=== PATIENT | female | born 1975 | race Caucasian/White ===

== ENCOUNTER 2016-10-03 19:20 | Outpatient (CLI) | payer MEDICARE, MEDICAID | END 2016-10-03 19:21 | disposition home or self-care (01) | DX: Z00.00 Encounter for general adult medical examination without abnormal findings (principal); Z79.899 Other long term (current) drug therapy; E21.3 Hyperparathyroidism, unspecified ==

== ENCOUNTER 2016-10-20 09:52 | Outpatient (CLI) | payer MEDICARE, MEDICAID ==
--- NOTE | 2016-10-23 15:44 | Mammography Report ---
DIGITAL SCREENING MAMMOGRAM: 10/20/2016 CLINICAL INDICATION: A 41-year-old with family history of breast cancer for screening. COMPARISON: 11/2010 TECHNIQUE: Routine CC and MLO projections were obtained of the breasts as well as bilateral laterall y exaggerated craniocaudal views. FINDINGS: Scattered fibroglandular tissue is present within the breasts. There are no dominant odalis s, suspicious microcalcifications, or secondary signs of malignancy. In comparison to the previous st udies, there are no significant changes. ASSESSMENT: NO MAMMOGRAPHIC EVIDENCE OF MALIGNANCY. NO SIGNIFICANT INTERVAL CHANGES. RECOMMENDATION: Screening mammography is recommended annually. BIRADS category 1 - negative. STANDARD QUALIFYING STATEMENTS 1. This examination was reviewed with the aid of Computed-Aided Detection (CAD). 2. A negative or benign imaging report should not delay biopsy if clinically suspicious findings are present. Consider surgical consultation if warranted. More than 5% of cancers are not identified by i maging. 3. Dense breasts may obscure an underlying neoplasm. JOB #: [id number] EXT JOB #:[id number]
== END 2016-10-20 09:53 | disposition home or self-care (01) ==
LOC: DI.N 09:52
PROVIDERS: ATTEND Nurse Practitioner
DX: Z12.31 Encounter for screening mammogram for malignant neoplasm of breast (principal); Z80.3 Family history of malignant neoplasm of breast
CPT/HCPCS: 77067

== ENCOUNTER 2016-10-30 10:59 | Outpatient (CLI) | payer MEDICARE, MEDICAID ==
--- NOTE | 2016-10-30 18:16 | XRAY Report ---
CHEST, PA AND LATERAL: 10/30/2016 CLINICAL HISTORY: Bronchitis. COMPARISON: 08/24/2014 FINDINGS: Normal cardiac size is seen. Mediastinum is not widened. Pulmonary parenchyma shows no s ignificant abnormality. No significant infiltrate is seen. No change is noted. IMPRESSION: NORMAL EXAMINATION WITHOUT CHANGE SEEN COMPARED TO 08/24/2014. 18:9:34 JOB #: [id number] EXT JOB #:[id number]
== END 2016-10-30 11:00 | disposition home or self-care (01) ==
LOC: DI.N 10:59
PROVIDERS: ATTEND Physician Assistant
DX: J40 Bronchitis, not specified as acute or chronic (principal)
CPT/HCPCS: 71020

== ENCOUNTER 2017-02-27 12:13 | Emergency (ER) | payer OTHER, MEDICARE, MEDICAID ==
--- NOTE | 2017-02-27 13:48 | ED Physician Documentation ---
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 Timing - onset: Yesterday Timing - duration: Days (1) Timing - details: Gradual onset Pain level max: 5 Pain level now: 5 Quality: Pain, Spasm, Similar to prior episodes Improved by: Rest Worsened by: Moving, Palpating Associated symptoms: No: Fever, Weakness, Numbness, Incontinent of urine, Unable to urinate, Hematuria, Incontinent of stool Similar symptoms before: Diagnosis (back pain) Recently seen: Not recently seen - Additional information Additional information: Patient states that she has a "cage" in her lumbar spine, implanted about a year ago and is concerned that this may have been damaged in the injury. Review of Systems Constitutional: denies: Fever, Chills Respiratory: denies: Cough GI: denies: Abdominal Pain, Nausea, Vomiting, Diarrhea : denies: Dysuria, Frequency, Hesitancy, Unable to Void, Incontinent, Now EGA Skin: denies: Rash Musculoskeletal: denies: Neck pain Neurologic: denies: Focal weakness, Numbness PD PAST MEDICAL HISTORY - Past Medical History Past Medical History: Yes Cardiovascular: None Respiratory: COPD Neuro: None Endocrine/Autoimmune: None GI: None : None HEENT: None Psych: Bipolar disorder, Panic attacks Musculoskeletal: Osteoarthritis, Chronic back pain Derm: None Other Past Medical History: CMTR - Past Surgical History Past Surgical History: Yes General: Other 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, Other - Present Medications Home Medications: Ambulatory Orders Medication Instructions Recorded Confirmed ARIPiprazole [Abilify] 5 mg PO DAILY 05/13/13 02/27/17 buPROPion [Wellbutrin Xl] 300 mg PO DAILY 05/13/13 02/27/17 Pregabalin [Lyrica] 150 mg PO BID 08/28/13 02/27/17 Cyclobenzaprine [Flexeril] 10 mg PO TID PRN #20 tablet 02/27/17 Meloxicam [Mobic] 7.5 mg PO BID PRN #20 tablet 02/27/17 Naproxen [Naprosyn] 250 mg PO BID 02/27/17 02/27/17 - Allergies Allergies/Adverse Reactions: Allergies Allergy/AdvReac Type Severity Reaction Status Date / Time acetaminophen [From Percocet] Allergy Unknown Verified 02/27/17 12:20 oxycodone Allergy Unknown Verified 02/27/17 12:20 oxycodone HCl * Allergy Unknown Verified 02/27/17 12:20 [From Percocet] codeine [Codeine] AdvReac Severe Rash Verified 02/27/17 12:20 - Social History Does the pt smoke?: Yes Smoking Status: Current every day smoker Does the pt drink ETOH?: Yes Does the pt have substance abuse?: Yes - Immunizations Immunizations are current?: Yes PD ED PE NORMAL - Vitals Vital signs reviewed: Yes - General General: Alert and oriented X 3, No acute distress - HEENT HEENT: Moist mucous membranes - Back Back: Other (Mild midline tenderness L4-L5 without step-off or deformity. Paraspinal muscle spasm low lumbar bilaterally.) - Derm Derm: Warm and dry - Extremities Extremities: Other (normal bilateral lower extremity patellar and ankle jerk reflexes. Normal great toe extension bilaterally) - Neuro Neuro: Alert and oriented X 3, No motor deficit, No sensory deficit - Psych Psych: Normal mood, Normal affect Results - Vitals Vitals: Vital Signs - 24 hr 02/27/17 02/27/17 12:17 14:03 Temperature 36.5 C 36.4 C L Heart Rate 84 83 Respiratory 16 18 Rate Blood Pressure 126/88 H 139/91 H O2 Saturation 100 97 Oxygen O2 Source Room air - Rads (name of study) L-spine x-ray Radiology: Prelim report reviewed, EMP read contemporaneously, See rad report ( No acute findings) PD MEDICAL DECISION MAKING - ED course Complexity details: reviewed results, re-evaluated patient, considered differential (no cauda equina, no spinal epidural abscess, no fracture, no aortic dissection or evidence of aneursym rupture), d/w patient ED course: Patient is a 41-year-old female who is status post a low back injury one day ago at work. History of a spinal fusion, L5-S1 within the past year. X-ray reveals no movement of the hardware. No acute bony findings. Will place on muscle relaxants and NSAIDs for home and follow-up with her doctor. Patient counseled regarding signs and symptoms for which I believe and urgent re- evaluation would be necessary. Patient with good understanding of and agreement to plan and is comfortable going home at this time This document was made in part using voice recognition software. While efforts are made to proofread this document, sound alike and grammatical errors may occur. Departure - Departure Disposition: 01 Home, Self Care Clinical Impression: Low back strain Qualifiers: Encounter type: initial encounter Qualified Code(s): S39.012A - Strain of muscle, fascia and tendon of lower back, initial encounter Condition: Good Instructions: ED Sprain Strain Lumbar Follow-Up: Pipo Aiken PA-C [Primary Care Provider] - Within 1 week Prescriptions: Cyclobenzaprine [Flexeril] 10 mg PO TID PRN #20 tablet PRN Reason: Spasms Meloxicam [Mobic] 7.5 mg PO BID PRN #20 tablet PRN Reason: pain Comments: Return if you worsen. This should improve over the next few days. Do not drive or operate heavy machinery while taking the Flexeril. Your blood pressure was elevated today on check in to the emergency department. This does not mean that you have hypertension, it is a common phenomenon to check into the emergency department and have elevated blood pressure. I recommend that you see your primary care physician within the week to have it rechecked when you're feeling better. Forms: Activity restrictions Discharge Date/Time: 02/27/17 14:25
[2017-02-27 14:04] VITALS: BP 139/91
--- NOTE | 2017-02-27 14:18 | XRAY Preliminary Report ---
Exam: XR Lumbar Spine 2 View IMPRESSION: No acute findings are seen. See above. [facility] SITE ID: [id number]
--- NOTE | 2017-02-27 14:20 | XRAY Report ---
EXAM: LUMBOSACRAL SPINE RADIOGRAPHY EXAM DATE: 02/27/2017 02:05 PM. CLINICAL HISTORY: Low back pain s/p pulling pt, has a cage in place. COMPARISONS: None. TECHNIQUE: 3 views. FINDINGS: Alignment: Normal. No spondylolisthesis or scoliosis. Bones: No fractures or bone lesions. Disks: L5-S1 fusion with posterior rods, pedicle screws and interbody disk prosthesis. Alignment appe ars within normal limits. Mild L4-L5 disk height loss. Facets: Mild L4-L5 facet arthropathy Sacroiliac Joints: Unremarkable. Soft Tissues: Normal. The visualized bowel gas pattern is normal. IMPRESSION: No acute findings are seen. See above. [facility] Referring Provider Line: [phone] SITE ID: [id number]
== END 2017-02-27 14:25 | disposition home or self-care (01) ==
LOC: ED 12:13
DX: S39.012A Strain of muscle, fascia and tendon of lower back, initial encounter (principal); X50.1XXA Overexertion from prolonged static or awkward postures, initial encounter; Y93.89 Activity, other specified; Y99.0 Civilian activity done for income or pay; F17.200 Nicotine dependence, unspecified, uncomplicated; R03.0 Elevated blood-pressure reading, without diagnosis of hypertension
CPT/HCPCS: 1040M; 72100; 99283

== ENCOUNTER 2018-01-08 08:00 | Outpatient (CLI) | payer MEDICARE, MEDICAID ==
[2018-01-08 12:46] LABS: BASOPHILS # (AUTO) 0.1 10^3/uL (0.0-0.1); BASOPHILS % (AUTO) 0.7 %; EOSINOPHILS # (AUTO) 0.2 10^3/uL (0.0-0.7); HGB - HEMOGLOBIN 14.2 g/dL (12.0-16.0); LYMPHOCYTES # (AUTO) 2.8 10^3/uL (1.5-3.5); LYMPHOCYTES % (AUTO) 33.6 %; MEAN CORPUSCULAR HEMOGLOBIN 28.3 pg (27.0-31.0); MEAN CORPUSCULAR HGB CONC 32.7 g/dL (32.0-36.0); MEAN CORPUSCULAR VOLUME 86.6 fL (81.0-99.0); MEAN PLATELET VOLUME 9.5 fL (7.9-10.8); MONOCYTES # (AUTO) 0.4 10^3/uL (0.0-1.0); MONOCYTES % (AUTO) 4.6 %; NEUTROPHILS # (AUTO) 4.9 10^3/uL (1.5-6.6); NEUTROPHILS % (AUTO) 59.1 %; PLT - PLATELET COUNT 223 10^3/uL (130-450); RED BLOOD COUNT 5.01 10^6/uL (4.20-5.40); RED CELL DISTRIBUTION WIDTH 15.5 % (12.0-15.0); WHITE BLOOD COUNT 8.2 x10^3/uL (4.8-10.8)
[2018-01-08 13:17] LABS: ALBUMIN 3.7 g/dL (3.2-5.5); ALBUMIN/GLOBULIN RATIO 1.1 (1.0-2.2); ALKALINE PHOSPHATASE 52 IU/L (42-121); ALT ALANINE AMINOTRANSFERASE 19 IU/L (10-60); AST ASPARTATE AMINOTRANSFERASE 21 IU/L (10-42); BILIRUBIN,TOTAL 0.6 mg/dL (0.2-1.0); BUN - BLOOD UREA NITROGEN 14 mg/dL (6-20); CALCIUM 9.4 mg/dL (8.5-10.3); CARBON DIOXIDE - CO2 24 mmol/L (21-32); CHLORIDE 105 mmol/L (101-111); CHOL/HDL RATIO 6.8 (<4.4); CHOLESTEROL 244 mg/dL; GFR - MDRD 61 (>89); GLUCOSE 107 mg/dL (70-100); HDL CHOLESTEROL 36 mg/dL; LDL CHOLESTEROL,CALCULATED 163 mg/dL; LDL/HDL RATIO 4.5 (<4.4); SODIUM 137 mmol/L (135-145); TOTAL PROTEIN 7.1 g/dL (6.7-8.2); VLDL CHOLESTEROL 45 mg/dL
== END 2018-01-08 08:01 | disposition home or self-care (01) ==
LOC: LAB.N 08:00
PROVIDERS: ATTEND Family Medicine
DX: E55.9 Vitamin D deficiency, unspecified (principal); Z51.81 Encounter for therapeutic drug level monitoring; F31.9 Bipolar disorder, unspecified
CPT/HCPCS: 36415; 80053; 80061; 82306; 83721; 85025

== ENCOUNTER 2018-01-17 09:17 | Outpatient (CLI) | payer MEDICARE, MEDICAID ==
--- NOTE | 2018-01-17 11:33 | XRAY Report ---
Procedure Date: 01/17/2018 Accession Number: [id number] / [id number] Procedure: XRN - Knee 3 View LT CPT Code: FULL RESULT: EXAM: Knee 3 View LT DATE: 01/17/2018 9:53 AM CLINICAL HISTORY: KNEE PAIN COMPARISON: None. TECHNIQUE: 3 views. FINDINGS: Bones: There is no fracture or dislocation. Degenerative changes with marginal osteophytosis, tricompartmental. Joints: Bilateral femoral tibial compartment joint space narrowing, more pronounced in the medial compartment where there is moderate. Asymmetric joint space loss/tracking of the patella, lateral tilt. No joint effusion. Soft Tissues: Normal. No soft tissue swelling. IMPRESSION: Degenerative changes involving the lateral patella and medial femoral tibial compartment as described. [facility]
== END 2018-01-17 09:18 | disposition home or self-care (01) ==
LOC: DI.N 09:17
PROVIDERS: ATTEND Family Medicine
DX: M25.562 Pain in left knee (principal); M25.762 Osteophyte, left knee

== ENCOUNTER 2018-02-12 07:50 | Outpatient (CLI) | payer MEDICARE, MEDICAID ==
[2018-02-12 13:09] LABS: HB2 TOTAL 15.5 g/dL; HEMOGLOBIN A1C 0.61 g/dL; HEMOGLOBIN A1C % 5.8 % (4.6-6.2)
== END 2018-02-12 07:51 | disposition home or self-care (01) ==
LOC: LAB.N 07:50
PROVIDERS: ATTEND Family Medicine
DX: R73.01 Impaired fasting glucose (principal)
CPT/HCPCS: 36415; 83036

== ENCOUNTER 2018-03-18 10:29 | Outpatient (CLI) | payer MEDICARE, MEDICAID ==
--- NOTE | 2018-03-18 15:36 | XRAY Report ---
Reason: KANDICE-TOOTH DISEASE Procedure Date: 03/18/2018 Accession Number: [id number] / [id number] Procedure: XRN - Foot 3 View LT CPT Code: FULL RESULT: EXAM: LEFT FOOT RADIOGRAPHY EXAM DATE: 03/18/2018 10:55 AM. CLINICAL HISTORY: Kandice-tooth disease. COMPARISON: KNEE 3 VIEW LT 01/17/2018 9:47 AM FOOT 3 VIEW LT 01/27/2016 3:02 PM. TECHNIQUE: 3 views. FINDINGS: The patient is status post mid foot arthrodesis with chronic unchanged fracture of the calcaneal screw. Remaining hardware including plate and screw construct is unchanged in configuration. No acute fracture is identified. Osseous fusion and degenerative changes in the mid foot previously seen in 2016 have not significantly changed. IMPRESSION: Stable exam. [facility]
== END 2018-03-18 10:30 | disposition home or self-care (01) ==
LOC: DI.N 10:29
PROVIDERS: ATTEND Physician Assistant Medical
DX: G60.0 Hereditary motor and sensory neuropathy (principal)

== ENCOUNTER 2018-07-02 08:26 | Outpatient (CLI) | payer MEDICARE, MEDICAID ==
--- NOTE | 2018-07-02 15:47 | XRAY Report ---
Reason: PRODUCTIVE COUGH, CIGARETTE SMOKER Procedure Date: 07/02/2018 Accession Number: [id number] / [id number] Procedure: XRN - Chest 2 View X-Ray CPT Code: 02173 FULL RESULT: EXAM: CHEST RADIOGRAPHY EXAM DATE: 07/02/2018 08:49 AM. CLINICAL HISTORY: PRODUCTIVE COUGH, CIGARETTE SMOKER. COMPARISON: CHEST 2 VIEW PA/LAT 10/30/2016 11:28 AM. TECHNIQUE: 2 views. FINDINGS: Lungs/Pleura: No focal opacities evident. No pleural effusion. No pneumothorax. Normal volumes. Mediastinum: Heart and mediastinal contours are unremarkable. Other: None. IMPRESSION: Normal 2-view chest radiography. [facility]
== END 2018-07-02 08:27 | disposition home or self-care (01) ==
LOC: DI.N 08:26
PROVIDERS: ATTEND Physician Assistant Medical
DX: R05 Cough (principal); F17.210 Nicotine dependence, cigarettes, uncomplicated
CPT/HCPCS: 71046

== ENCOUNTER 2018-08-26 11:15 | Outpatient (CLI) | payer MEDICARE, MEDICAID | END 2018-08-26 11:16 | disposition home or self-care (01) | LOC: SC 11:15 | PROVIDERS: ATTEND Internal Medicine Pulmonary Disease | DX: R06.81 Apnea, not elsewhere classified (principal); G47.10 Hypersomnia, unspecified; R41.89 Other symptoms and signs involving cognitive functions and awareness; G47.8 Other sleep disorders; R06.83 Snoring | CPT/HCPCS: 99203; G0463; 99212 ==

== ENCOUNTER 2018-08-28 19:25 | Outpatient (CLI) | payer MEDICARE, MEDICAID | END 2018-08-28 19:26 | disposition home or self-care (01) | LOC: SC 19:25 | PROVIDERS: ATTEND Internal Medicine Pulmonary Disease | DX: G47.10 Hypersomnia, unspecified (principal); R06.81 Apnea, not elsewhere classified | CPT/HCPCS: 95810 ==

== ENCOUNTER 2018-09-24 08:00 | Outpatient (CLI) | payer MEDICARE, MEDICAID ==
[2018-09-24 13:06] LABS: ALBUMIN 3.6 g/dL (3.2-5.5); ALBUMIN/GLOBULIN RATIO 0.9 (1.0-2.2); ALKALINE PHOSPHATASE 67 IU/L (42-121); ALT ALANINE AMINOTRANSFERASE 18 IU/L (10-60); AST ASPARTATE AMINOTRANSFERASE 21 IU/L (10-42); BILIRUBIN,TOTAL 0.4 mg/dL (0.2-1.0); BUN - BLOOD UREA NITROGEN 15 mg/dL (6-20); CALCIUM 9.2 mg/dL (8.5-10.3); CARBON DIOXIDE - CO2 27 mmol/L (21-32); CHLORIDE 103 mmol/L (101-111); CHOL/HDL RATIO 7.6 (<4.4); CHOLESTEROL 251 mg/dL; CREATININE 0.9 mg/dL (0.4-1.0); GFR - MDRD 68 (>89); GLUCOSE 118 mg/dL (70-100); HDL CHOLESTEROL 33 mg/dL; LDL CHOLESTEROL,CALCULATED 178 mg/dL; LDL/HDL RATIO 5.4 (<4.4); MAGNESIUM 2.1 mg/dL (1.7-2.8); SODIUM 139 mmol/L (135-145); TOTAL PROTEIN 7.4 g/dL (6.7-8.2); VLDL CHOLESTEROL 40 mg/dL
== END 2018-09-24 23:59 | disposition home or self-care (01) ==
LOC: LAB.N 08:00
PROVIDERS: ATTEND Internal Medicine Cardiovascular Disease
DX: R00.2 Palpitations (principal); R06.02 Shortness of breath; R03.0 Elevated blood-pressure reading, without diagnosis of hypertension; Z13.220 Encounter for screening for lipoid disorders; R01.1 Cardiac murmur, unspecified
CPT/HCPCS: 36415; 80053; 80061; 82088; 83721; 83735; 83880; 84443

== ENCOUNTER 2018-10-01 08:42 | Outpatient (CLI) | payer MEDICARE, MEDICAID | END 2018-10-01 08:43 | disposition home or self-care (01) | LOC: SC 08:42 | PROVIDERS: ATTEND Nurse Practitioner Family | DX: R06.83 Snoring (principal); R53.83 Other fatigue | CPT/HCPCS: 99214; G0463; 99212 ==

== ENCOUNTER 2018-10-22 09:41 | Outpatient (CLI) | payer MEDICARE, MEDICAID ==
--- NOTE | 2018-10-22 11:29 | XRAY Report ---
Reason: FOOT JOINT PAIN, LEFT Procedure Date: 10/22/2018 Accession Number: [id number] / [id number] Procedure: XR - Foot 3 View LT CPT Code: FULL RESULT: EXAM: LEFT FOOT RADIOGRAPHY EXAM DATE: 10/22/2018 10:07 AM. CLINICAL HISTORY: Foot joint pain, left. COMPARISON: FOOT 3 VIEW LT 03/18/2018 10:59 AM. TECHNIQUE: 3 views. FINDINGS: Bones: There is stable appearance of arthrodesis hardware of the first tarsometatarsal joint and the calcaneocuboid joint. Once again, there is fracture of longitudinal screw across the calcaneocuboid joint. There is no acute fracture, bony erosion or periosteal reaction. No significant resorption around the visualized hardware. Stable degenerative changes noted of the midtarsal joints and the tarsometatarsal joints from previous. Stable healed fracture of the second metatarsal. Joints: No dislocation or subluxation. Soft Tissues: There is new focal dorsal soft tissue swelling of the posterior foot superficial to the talonavicular joint and navicular bone. IMPRESSION: 1. Stable degenerative and postoperative changes as described. Stable appearance of the arthrodesis hardware. 2. New focal soft tissue swelling dorsal posterior foot of undetermined etiology. This could be due to bruising from direct injury versus soft tissue infection. Clinical correlation is suggested. 3. No appreciable acute fracture. [facility]
== END 2018-10-22 09:42 | disposition home or self-care (01) ==
LOC: DI 09:41
PROVIDERS: ATTEND Nurse Practitioner Gerontology
DX: M19.072 Primary osteoarthritis, left ankle and foot (principal); Z98.1 Arthrodesis status; R22.42 Localized swelling, mass and lump, left lower limb

== ENCOUNTER 2019-07-26 08:14 | Outpatient (CLI) | payer MEDICARE, MEDICAID ==
--- NOTE | 2019-07-27 03:51 | CT Report ---
Reason: SMOKING GREATER THAN 30 PACK YEARS Procedure Date: 07/26/2019 Accession Number: [id number] / [id number] Procedure: CT - CHEST WO CPT Code: Final Report FULL RESULT: EXAM: CT CHEST EXAM DATE: 07/26/2019 08:26 AM. CLINICAL HISTORY: SMOKING GREATER THAN 30 PACK YEARS. Persistent cough. Lump under the left axilla. COMPARISONS: None. TECHNIQUE: Routine helical CT imaging was performed through the chest. IV contrast: None. Reconstructions: Coronal and sagittal. In accordance with CT protocol optimization, one or more of the following dose reduction techniques were utilized for this exam: automated exposure control, adjustment of mA and/or KV based on patient size, or use of iterative reconstructive technique. FINDINGS: Lungs/Pleura: No pulmonary nodules are identified. No alveolar consolidation or pleural effusion seen. No pneumothorax. Mediastinum: Heart size is normal. Nonspecific normal-sized mediastinal lymph nodes measuring up to 0.7 cm. Great vessels are unremarkable. There appears to be prior thyroid surgery. Bones: Unremarkable. Visualized Abdomen: Probable fatty liver. Other: None. IMPRESSION: 1. No pulmonary nodules are identified. Recommend follow-up at 12 months with screening chest CT. 2. No other acute abnormality seen in the chest. 3. Probable fatty liver. [facility]
== END 2019-07-26 08:15 | disposition home or self-care (01) ==
LOC: DI 08:14
PROVIDERS: ATTEND Physician Assistant Medical
DX: F17.210 Nicotine dependence, cigarettes, uncomplicated (principal)
CPT/HCPCS: 71250

== ENCOUNTER 2020-03-25 08:00 | Outpatient (CLI) | payer MEDICARE, MEDICAID ==
[2020-03-25 11:22] LABS: BASOPHILS # (AUTO) 0.1 10^3/uL (0.0-0.1); BASOPHILS % (AUTO) 0.7 %; EOSINOPHILS # (AUTO) 0.4 10^3/uL (0.0-0.7); EOSINOPHILS % (AUTO) 5.3 %; HGB - HEMOGLOBIN 12.7 g/dL (12.0-16.0); LYMPHOCYTES # (AUTO) 2.6 10^3/uL (1.5-3.5); LYMPHOCYTES % (AUTO) 31.3 %; MEAN CORPUSCULAR HEMOGLOBIN 27.7 pg (27.0-31.0); MEAN CORPUSCULAR HGB CONC 30.5 g/dL (32.0-36.0); MONOCYTES # (AUTO) 0.4 10^3/uL (0.0-1.0); MONOCYTES % (AUTO) 4.9 %; NEUTROPHILS # (AUTO) 4.8 10^3/uL (1.5-6.6); NEUTROPHILS % (AUTO) 57.1 %; PLT - PLATELET COUNT 254 10^3/uL (130-450); RED BLOOD COUNT 4.58 10^6/uL (4.20-5.40); RED CELL DISTRIBUTION WIDTH 14.5 % (12.0-15.0); WHITE BLOOD COUNT 8.4 x10^3/uL (4.8-10.8)
[2020-03-25 12:00] LABS: ALBUMIN 3.6 g/dL (3.2-5.5); ALKALINE PHOSPHATASE 75 IU/L (42-121); ALT ALANINE AMINOTRANSFERASE 24 IU/L (10-60); AST ASPARTATE AMINOTRANSFERASE 28 IU/L (10-42); BILIRUBIN,TOTAL 0.3 mg/dL (0.2-1.0); BUN - BLOOD UREA NITROGEN 15 mg/dL (6-20); CALCIUM 9.5 mg/dL (8.5-10.3); CARBON DIOXIDE - CO2 27 mmol/L (21-32); CHLORIDE 102 mmol/L (101-111); CHOL/HDL RATIO 7.5 (<4.4); CHOLESTEROL 262 mg/dL; GLUCOSE 122 mg/dL (70-100); HDL CHOLESTEROL 35 mg/dL; SODIUM 139 mmol/L (135-145); TOTAL PROTEIN 7.3 g/dL (6.7-8.2)
[2020-03-25 12:54] LABS: LDL CHOLESTEROL,DIRECT 166 mg/dL; LDLD/HDL RATIO 4.7 (<4.4)
== END 2020-03-25 23:59 | disposition home or self-care (01) ==
LOC: LAB.WCP 08:00
PROVIDERS: ATTEND Nurse Practitioner Family
DX: J44.9 Chronic obstructive pulmonary disease, unspecified (principal); E78.5 Hyperlipidemia, unspecified; R73.01 Impaired fasting glucose
CPT/HCPCS: 36415; 80053; 80061; 83721; 84443; 85025

== ENCOUNTER 2020-03-30 07:17 | Outpatient (CLI) | payer MEDICARE, MEDICAID ==
[2020-03-30 13:37] LABS: HEMOGLOBIN A1c% 6.2 % (4.27-6.07)
== END 2020-03-30 23:59 | disposition home or self-care (01) ==
LOC: LAB.WCP 07:17
PROVIDERS: ATTEND Nurse Practitioner Family
DX: R73.01 Impaired fasting glucose (principal)
CPT/HCPCS: 36415; 83036

== ENCOUNTER 2020-06-12 07:29 | Outpatient (CLI) | payer MEDICARE, MEDICAID ==
--- NOTE | 2020-06-12 08:30 | Ultrasound Report ---
PROCEDURE: Head or Neck Soft Tissue INDICATIONS: NECK MASS TECHNIQUE: Real-time scanning was performed of the thyroid gland, with image documentation. COMPARISON: None. FINDINGS: Right: Right thyroid lobe measures 4.6 x 1.8 x 1.8 cm in size. Left: Left thyroid lobe measures 3.6 x 1.4 x 1.3 cm in size. Isthmus: Isthmus measures 4 mm in thickness. Bilateral thyroid parenchyma is fairly homogeneous in echotexture. No discrete thyroid nodule is seen . A palpable lymph node is seen in left superior lateral neck near the submandibular space and measur es 8 mm in short axis diameter. Incidentally noted is right parathyroid gland measures 8 mm in size. IMPRESSION: 1. No discrete thyroid nodule. No gross abnormality is seen in bilateral thyroid lobes. 2. Right parathyroid gland measuring 8 mm in size is noted at mid thyroid level. 3. Patient's reported palpable lump in left submandibular region represents a mildly prominent lymph node measures up to 8 mm in short axis diameter. Reviewed by: Mike Celis MD on 06/12/2020 8:28 AM PST Approved by: Mike Celis MD on 06/12/2020 8:28 AM PST Station ID: [id number]
== END 2020-06-12 07:30 | disposition home or self-care (01) ==
LOC: DI 07:29
PROVIDERS: ATTEND Family Medicine
DX: R59.0 Localized enlarged lymph nodes (principal)

== ENCOUNTER 2020-07-02 07:28 | Outpatient (CLI) | payer MEDICARE, MEDICAID ==
[2020-07-02 12:21] LABS: ALBUMIN 3.8 g/dL (3.2-5.5); ALBUMIN/GLOBULIN RATIO 1.1 (1.0-2.2); ALKALINE PHOSPHATASE 68 IU/L (42-121); ALT ALANINE AMINOTRANSFERASE 21 IU/L (10-60); AST ASPARTATE AMINOTRANSFERASE 23 IU/L (10-42); BILIRUBIN,TOTAL 0.4 mg/dL (0.2-1.0); BUN - BLOOD UREA NITROGEN 19 mg/dL (6-20); CALCIUM 9.5 mg/dL (8.5-10.3); CARBON DIOXIDE - CO2 27 mmol/L (21-32); CHLORIDE 102 mmol/L (101-111); CHOL/HDL RATIO 6.8 (<4.4); CHOLESTEROL 252 mg/dL; GLUCOSE 130 mg/dL (70-100); HDL CHOLESTEROL 37 mg/dL; HEMOGLOBIN A1c% 6.8 % (4.27-6.07); LDL CHOLESTEROL,CALCULATED 169 mg/dL; LDL/HDL RATIO 4.6 (<4.4); TOTAL PROTEIN 7.2 g/dL (6.7-8.2); VLDL CHOLESTEROL 46 mg/dL
== END 2020-07-02 23:59 | disposition home or self-care (01) ==
LOC: LAB.WCP 07:28
PROVIDERS: ATTEND Nurse Practitioner Family
DX: R73.03 Prediabetes (principal); E78.5 Hyperlipidemia, unspecified
CPT/HCPCS: 36415; 80053; 80061; 83036; 83721

== ENCOUNTER 2020-09-21 07:00 | Outpatient (CLI) | payer MEDICARE, MEDICAID | END 2020-09-21 23:59 | disposition home or self-care (01) | LOC: LAB.N 07:00 | PROVIDERS: ATTEND Family Medicine | DX: G56.90 Unspecified mononeuropathy of unspecified upper limb (principal) | CPT/HCPCS: 36415; 82607; 83921; 84484; 85651 ==

== ENCOUNTER 2020-10-11 07:55 | Outpatient (CLI) | payer MEDICARE, MEDICAID ==
[2020-10-11 12:08] LABS: CALCIUM 9.6 mg/dL (8.5-10.3); CREATININE 0.9 mg/dL (0.4-1.0); POTASSIUM 4.2 mmol/L (3.5-5.0)
[2020-10-11 12:26] LABS: ESTIMATED AVERAGE GLUCOSE 140 mg/dL (70-100); HEMOGLOBIN A1c% 6.5 % (4.27-6.07)
== END 2020-10-11 23:59 | disposition home or self-care (01) ==
LOC: LAB.WCP 07:55
PROVIDERS: ATTEND Nurse Practitioner Family
DX: E11.9 Type 2 diabetes mellitus without complications (principal)
CPT/HCPCS: 36415; 80048; 83036

== ENCOUNTER 2020-12-05 06:11 | Emergency (ER) | payer MEDICARE, MEDICAID ==
--- NOTE | 2020-12-05 07:11 | ED Physician Documentation ---
History of Present Illness - Stated complaint Stated Complaint: L FT SWELING, R FT PX - Chief complaint Chief Complaint: Ext Problem - History obtained from History obtained from: Patient - History of Present Illness Timing: How many weeks ago (1-4) - Additonal information Additional information: 45-year-old diabetic female with history of Shjlybk-Uveue-Lzeas foot has developed some discomfort to her feet bilaterally worse on the left than the right. She has noticed over the past several days an increase in the pain associated with this especially to the left foot. She was unable to sleep last night. She has some serous drainage from the center of the left ulcer. She has not had diabetic foot ulcer previously. She has had surgery to her left foot. She has not had fever. She does have some swelling to both lower extremities and sleeps in a recliner periodically because of back pain. She does have peripheral neuropathy. Review of Systems Constitutional: denies: Fever Nose: denies: Congestion Throat: denies: Sore throat Cardiac: denies: Chest pain / pressure Respiratory: denies: Dyspnea, Cough GI: denies: Vomiting Musculoskeletal: reports: Back pain, Extremity pain, Extremity swelling, Pain with weight bearing. 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 - Present Medications Home Medications: Ambulatory Orders Medication Instructions Recorded Confirmed ARIPiprazole [Abilify] 5 mg PO DAILY 05/13/13 02/27/17 buPROPion [Wellbutrin Xl] 300 mg PO DAILY 05/13/13 02/27/17 Pregabalin [Lyrica] 150 mg PO BID 08/28/13 02/27/17 Cyclobenzaprine [Flexeril] 10 mg PO TID PRN #20 tablet 02/27/17 Meloxicam [Mobic] 7.5 mg PO BID PRN #20 tablet 02/27/17 Naproxen [Naprosyn] 250 mg PO BID 02/27/17 02/27/17 - Allergies Allergies/Adverse Reactions: Allergies Allergy/AdvReac Type Severity Reaction Status Date / Time acetaminophen [From Percocet] Allergy Unknown Verified 12/05/20 06:21 oxycodone Allergy Unknown Verified 12/05/20 06:21 oxycodone HCl * Allergy Unknown Verified 12/05/20 06:21 [From Percocet] codeine [Codeine] AdvReac Severe Rash Verified 12/05/20 06:21 - Social History Does the pt smoke?: Yes Smoking Status: Current every day smoker Does the pt drink ETOH?: Yes Does the pt have substance abuse?: Yes - Immunizations Immunizations are current?: Yes - POLST Patient has POLST: No PD ED PE NORMAL - Vitals Vital signs reviewed: Yes (hypertensive ) - General General: Alert and oriented X 3, No acute distress, Well developed/nourished - HEENT HEENT: Atraumatic, PERRL, EOMI - Respiratory Respiratory: No respiratory distress - Derm Derm: Normal color, Warm and dry, No rash - Extremities Extremities: Other (There is a grade 0 ulcer to the plantar surface of herrera feet over the distal 5th MT. The left is worse than the right. There is no surrounding erythema or pus drainage to suggets infection. There is serous drainage from the L and this is cultured. There is trace edema bilat. 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 Soft tissue swelling about the fifth metatarsal phalangeal joint. No acute osseous abnormality. Still stable postsurgical changes.), EMP read indepedently, See rad report ankle brachial index Radiology: Prelim report reviewed (Patient: 1. There is normal ankle-brachial index bilaterally at rest. 2. 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 She does sleep in a recliner periodically and has some dependent edema. The ulcer appears early without full thickness involvement. She is evaluated for peripher al vascular disease with an ankle-brachial index and an x-ray of the foot is obtained to rule out the unlikely possibility of osteomyelitis. She does have early signs of vascular disease on the left. Today we will provide occlusive dressing to the wounds and we have placed the patient into a walking boot to attempt to relieve pressure. I have asked the patient to follow-up with Dr. Rush for referral to the wound clinic as she will need ongoing wound care. Today I do not see evidence of infection and we have obtained a culture specimen from the left wound. Departure - Departure Disposition: 01 Home, Self Care Clinical Impression: Diabetic foot ulcers Qualifiers: Diabetic foot ulcer location: midfoot Diabetes mellitus type: type 2 Laterality: unspecified laterality Non-pressure ulcer stage: limited to breakdown of skin Qualified Code(s): E11.621 - Type 2 diabetes mellitus with foot ulcer Condition: Stable Instructions: Pressure Ulcer Foot, Diabetic Foot Ulcer Dc Follow-Up: Merritt Rush DO [Primary Care Provider] - Comments: Today it appears you have a diabetic foot ulcer. This does not appear infected today. A culture of the wound on the left foot has been obtained. A trip in to see the wound clinic is advised, follow-up with Dr. Rush for referral.
--- NOTE | 2020-12-05 08:49 | XRAY Report ---
PROCEDURE: Foot 3 View LT INDICATIONS: diabetic ulcer over distal 5th TECHNIQUE: 3 views of the foot were acquired. COMPARISON: 10/22/2018 FINDINGS: Bones: Unchanged orthopedic hardware related to calcaneal cuboid fusion and first tarsometatarsal fu carter. No evidence of hardware failure or loosening. No acute fractures or dislocations. Midfoot degen erative change. No osseous abnormality associated with acute lateral distal foot swelling. No fractur es or dislocations. No suspicious bony lesions. Soft tissues: No tibiotalar joint effusion. Achilles tendon appears normal. Soft tissue swelling l aterally at the level of the fifth MTP joint. No soft tissue gas. No radiopaque foreign body. IMPRESSION: 1. Cellulitis without evidence of osteomyelitis. 2. Stable postsurgical changes. Comment: If suspect osteomyelitis, consider MRI with and without contrast. A preliminary report with the above findings was provided at the time of the study by [facility]. Reviewed by: Miguel Nichols MD on 12/05/2020 7:47 AM NICKY Approved by: Miguel Nichols MD on 12/05/2020 7:47 AM NICKY Station ID: [id number]
--- NOTE | 2020-12-05 08:53 | Ultrasound Report ---
PROCEDURE: Ankle Brachial Index INDICATIONS: diabetic foot ulcer TECHNIQUE: Ankle-brachial indices were obtained bilaterally and recorded. COMPARISONS: None. FINDINGS: Right ankle brachial index (CARY): 1.0. Right dorsalis pedis and posterior tibial arteries have a nor mal triphasic waveform. Left ankle brachial index (CARY): 1.1 left dorsalis pedis and posterior tibial arteries have a monoph asic waveform. Healing potential: Ankle pressures >55 mm Hg in non-diabetics and >80 mm Hg in diabetics are likely to achieve primary h ealing of ischemic foot ulcers. Toe pressures >30 mm Hg are likely to achieve primary healing of ischemic foot ulcers, toe or transme tatarsal amputations. IMPRESSION: 1. There is a normal ankle-brachial index bilaterally at rest. 2. Monophasic waveforms in the left posterior tibial artery and dorsalis pedis arteries suggest that arterial disease is likely present. Reviewed by: Miguel Nichols MD on 12/05/2020 7:52 AM NICKY Approved by: Miguel Nichols MD on 12/05/2020 7:52 AM NICKY Station ID: [id number]
[2020-12-05 09:10] VITALS: BP 120/61
== END 2020-12-05 09:26 | disposition home or self-care (01) ==
LOC: ED 06:11
DX: E11.621 Type 2 diabetes mellitus with foot ulcer (principal); L97.421 Non-pressure chronic ulcer of left heel and midfoot limited to breakdown of skin; L97.411 Non-pressure chronic ulcer of right heel and midfoot limited to breakdown of skin; E11.42 Type 2 diabetes mellitus with diabetic polyneuropathy; G60.0 Hereditary motor and sensory neuropathy; F17.200 Nicotine dependence, unspecified, uncomplicated
CPT/HCPCS: 87070; 87205; 93922; 99283; 99284

== ENCOUNTER 2020-12-11 06:13 | Emergency (ER) | payer MEDICARE, MEDICAID ==
--- NOTE | 2020-12-11 06:59 | ED Physician Documentation ---
History of Present Illness - Stated complaint Stated Complaint: FEET PAIN - Chief complaint Chief Complaint: Wound - History obtained from History obtained from: Patient - History of Present Illness Timing: How many weeks ago (1) - Additonal information Additional information: 45-year-old diabetic female with Charcot Kandice foot has developed a painful ulcer on the lateral aspect of her foot she was seen here in the emergency department last week and referred to the wound clinic. There is vascular compromise to the left but with a normal ankle brachial index but with poor wave form. The ulcer did not appear infected when she was evaluated last week. She was unable to get into the wound clinic and she has developed some redness to the foot on the lateral aspect and increasing pain. She has not had fever and her sugars are running 101. No nausea or feeling ill. Review of Systems Constitutional: denies: Fever Eyes: denies: Decreased vision Ears: denies: Ear pain Nose: denies: Congestion Throat: denies: Sore throat Respiratory: denies: Cough GI: denies: Abdominal Pain, Nausea, Vomiting : denies: Dysuria, Frequency Skin: denies: Rash Musculoskeletal: reports: Extremity pain, Extremity swelling. denies: Neck pain, Back pain Neurologic: denies: Generalized weakness, Focal weakness, Numbness PD PAST MEDICAL HISTORY - Past Medical History Cardiovascular: None Respiratory: COPD Endocrine/Autoimmune: Type 2 diabetes GI: None : None HEENT: None Psych: Bipolar disorder, Panic attacks Musculoskeletal: Osteoarthritis, Chronic back pain Derm: None - Past Surgical History Past Surgical History: Yes General: Other Ortho: Other /[employer] [place]: Hysterectomy, Other - Present Medications Home Medications: Ambulatory Orders Medication Instructions Recorded Confirmed ARIPiprazole [Abilify] 5 mg PO DAILY 05/13/13 02/27/17 Pregabalin [Lyrica] 150 mg PO BID 08/28/13 02/27/17 Albuterol Sulf [Ventolin Hfa Q4HR 12/11/20 Inhaler] Fluoxetine HCl [Prozac] 40 mg PO 12/11/20 12/11/20 Gabapentin [Neurontin] 300 mg PO TID 12/11/20 12/11/20 cephALEXin [Keflex] 500 mg PO Q6H #28 cap 12/11/20 cloNIDine [Catapres] 0.1 mg PO 12/11/20 metFORMIN [Glucophage] 500 mg 12/11/20 - Allergies Allergies/Adverse Reactions: Allergies Allergy/AdvReac Type Severity Reaction Status Date / Time acetaminophen [From Percocet] Allergy Unknown Verified 12/11/20 06:33 oxycodone Allergy Unknown Verified 12/11/20 06:33 oxycodone HCl * Allergy Unknown Verified 12/11/20 06:33 [From Percocet] codeine [Codeine] AdvReac Severe Rash Verified 12/11/20 06:33 - Social History Does the pt smoke?: Yes Smoking Status: Current every day smoker Does the pt drink ETOH?: No Does the pt have substance abuse?: Yes Substance Use and Type: Marijuana - Immunizations Immunizations are current?: Yes - POLST Patient has POLST: No PD ED PE NORMAL - Vitals Vital signs reviewed: Yes (normal ) - General General: Alert and oriented X 3, No acute distress, Well developed/nourished - HEENT HEENT: Atraumatic, PERRL, EOMI - Respiratory Respiratory: No respiratory distress - Derm Derm: Normal color, Warm and dry, No rash - Extremities Extremities: Other (There is deformity of Charcot Kandice tooth to both feet worse on the left than the right there is an ulceration to the lateral aspect of the left foot over the distal fifth metatarsal. This is now eroded to the fat and there is generalized swelling and erythema over the dorsum of the foot.) - Neuro Neuro: Alert and oriented X 3, ruling machine feeder 2-12 intact, No motor deficit, No sensory deficit, Normal speech Eye Opening: Spontaneous Motor: Obeys Commands Verbal: Oriented GCS Score: 15 - Psych Psych: Normal mood, Normal affect Results - Vitals Vitals: Vital Signs - 24 hr 12/11/20 12/11/20 12/11/20 06:20 07:25 09:24 Temperature 36.8 C 37 C Heart Rate 91 77 66 Respiratory 16 16 16 Rate Blood Pressure 118/79 117/77 115/57 L O2 Saturation 95 96 97 12/11/20 09:25 Temperature 37.0 C Heart Rate Respiratory Rate Blood Pressure O2 Saturation Oxygen O2 Source Room air - Labs Labs: Laboratory Tests 12/11/20 12/11/20 12/11/20 07:06 07:06 07:06 WBC 12.3 H RBC 4.59 Hgb 12.7 Hct 40.6 MCV 88.5 MCH 27.7 MCHC 31.3 L RDW 14.3 Plt Count 336 MPV 10.7 Neut # (Auto) 9.0 H Lymph # (Auto) 2.0 [place] # (Auto) 0.6 Eos # (Auto) 0.3 Baso # (Auto) 0.1 Absolute Nucleated RBC 0.00 Nucleated RBC % 0.0 ESR Sodium 138 Potassium 4.2 Chloride 102 Carbon Dioxide 24 Anion Gap 12.0 BUN 18 Creatinine 1.0 Estimated GFR (MDRD) 60 L Glucose 135 H Lactic Acid 0.8 Calcium 9.6 Total Bilirubin 0.6 AST 22 ALT 30 Alkaline Phosphatase 84 C-Reactive Protein Total Protein 8.2 Albumin 3.7 Globulin 4.5 H Albumin/Globulin Ratio 0.8 L Lipase 25 12/11/20 12/11/20 07:06 07:06 WBC RBC Hgb Hct MCV MCH MCHC RDW Plt Count MPV Neut # (Auto) Lymph # (Auto) [place] # (Auto) Eos # (Auto) Baso # (Auto) Absolute Nucleated RBC Nucleated RBC % ESR 74 H Sodium Potassium Chloride Carbon Dioxide Anion Gap BUN Creatinine Estimated GFR (MDRD) Glucose Lactic Acid Calcium Total Bilirubin AST ALT Alkaline Phosphatase C-Reactive Protein 23.1 H Total Protein Albumin Globulin Albumin/Globulin Ratio Lipase - Rads (name of study) foot Radiology: Prelim report reviewed (Impression: Findings suggest worsening of cellulitic change. No evidence of osteomyelitis. Comment: If suspect osteomyelitis, consider foot MRI with and without contrast.), EMP read indepedently, See rad report PD MEDICAL DECISION MAKING - ED course Complexity details: reviewed results, re-evaluated patient, considered differential, d/w patient, d/w family ED course: 45-year-old female with a diabetic foot ulcer and Charcot Kandice foot has evidence of infection today and she is given a gram of Ancef intravenously we will place her on some Keflex and she will follow up with the wound care clinic. I do not see evidence of osteomyelitis on the patient's foot x-ray today she does have markedly elevated inflammatory markers. I have indicated to the patient this is a significantly serious infection and the consequences could be amputation and the patient is understanding of this and will follow through. I have asked her to return here should she have any failure of outpatient treatment. Departure - Departure Disposition: 01 Home, Self Care Clinical Impression: Diabetic foot ulcer associated with type 2 diabetes mellitus, with fat layer exposed Condition: Stable Instructions: Diabetes Treat Severe Foot Infecs Follow-Up: Merritt Rush DO [Primary Care Provider] - Prescriptions: cephALEXin [Keflex] 500 mg PO Q6H #28 cap Comments: Today the diabetic foot ulcer appears infected and the infection appears to be deep. This will take a long time to heal. The most critical time is over the next 2 days. If you have worsening of this infection at all return to the emergency department for admission to the hospital. Follow-up with the wound care clinic this week. Discharge Date/Time: 12/11/20 09:25
[2020-12-11 07:34] LABS: BASOPHILS # (AUTO) 0.1 10^3/uL (0.0-0.1); BASOPHILS % (AUTO) 0.8 %; EOSINOPHILS # (AUTO) 0.3 10^3/uL (0.0-0.7); EOSINOPHILS % (AUTO) 2.1 %; HCT - HEMATOCRIT 40.6 % (37.0-47.0); HGB - HEMOGLOBIN 12.7 g/dL (12.0-16.0); LYMPHOCYTES % (AUTO) 16.2 %; MEAN CORPUSCULAR HEMOGLOBIN 27.7 pg (27.0-31.0); MEAN CORPUSCULAR HGB CONC 31.3 g/dL (32.0-36.0); MEAN CORPUSCULAR VOLUME 88.5 fL (81.0-99.0); MEAN PLATELET VOLUME 10.7 fL (7.9-10.8); MONOCYTES # (AUTO) 0.6 10^3/uL (0.0-1.0); MONOCYTES % (AUTO) 5.2 %; NEUTROPHILS % (AUTO) 73.7 %; PLT - PLATELET COUNT 336 10^3/uL (130-450); RED BLOOD COUNT 4.59 10^6/uL (4.20-5.40); RED CELL DISTRIBUTION WIDTH 14.3 % (12.0-15.0); WHITE BLOOD COUNT 12.3 x10^3/uL (4.8-10.8)
[2020-12-11 07:56] LABS: ALBUMIN 3.7 g/dL (3.2-5.5); ALBUMIN/GLOBULIN RATIO 0.8 (1.0-2.2); BILIRUBIN,TOTAL 0.6 mg/dL (0.2-1.0); CALCIUM 9.6 mg/dL (8.5-10.3); POTASSIUM 4.2 mmol/L (3.5-5.0); TOTAL PROTEIN 8.2 g/dL (6.7-8.2)
[2020-12-11] MEDS ORDERED: ceFAZolin 1 GM VIAL IVP STA (08:06)
--- NOTE | 2020-12-11 09:12 | XRAY Report ---
PROCEDURE: Foot 3 View LT INDICATIONS: lateral diabetic ulcer much worse TECHNIQUE: 3 views of the foot were acquired. COMPARISON: 12/05/2020 FINDINGS: Bones: Extensive surgical hardware as before, including midfoot fusion hardware and base of first me tatarsal hardware. One of the midfoot screws is discontinuous. There is fusion between the calcaneus and cuboid. Midfoot degenerative change. No plain film evidence of osteomyelitis. No fractures or dis locations. No suspicious bony lesions. Soft tissues: No tibiotalar joint effusion. Achilles tendon appears normal. Again noted is a later al ulcer at the level of the fifth MTP. There is no spreading soft tissue gas. There is increased sangeeta ma over the dorsum of the foot. IMPRESSION: Findings suggest worsening of cellulitic change. No evidence of osteomyelitis. Comment: If suspect osteomyelitis, consider foot MRI with and without contrast. A preliminary report with the above findings was provided at the time of the study by [facility]. Reviewed by: Miguel Nichols MD on 12/11/2020 8:11 AM NICKY Approved by: Miguel Nichols MD on 12/11/2020 8:11 AM NICKY Station ID: [id number]
[2020-12-11 09:24] VITALS: BP 115/57
== END 2020-12-11 09:25 | disposition home or self-care (01) ==
LOC: ED 06:13
DX: E11.621 Type 2 diabetes mellitus with foot ulcer (principal); L97.422 Non-pressure chronic ulcer of left heel and midfoot with fat layer exposed; Z79.84 Long term (current) use of oral hypoglycemic drugs; G60.0 Hereditary motor and sensory neuropathy; F17.200 Nicotine dependence, unspecified, uncomplicated
CPT/HCPCS: 36415; 80053; 83605; 83690; 85025; 85651; 86140; 87040; 87070; 87205; 96374; 99283

== ENCOUNTER 2020-12-14 05:46 | Emergency (ER) | payer MEDICARE, MEDICAID ==
[2020-12-14 06:12] VITALS: BP 144/71
--- NOTE | 2020-12-14 06:18 | ED Physician Documentation ---
PD HPI SKIN - Stated complaint Stated Complaint: L FOOT INFECTION - Chief complaint Chief Complaint: General - History obtained from History obtained from: Patient - History of Present Illness Timing - onset: How many weeks ago (1) Timing - duration: Weeks (1) Timing - details: Gradual onset, Still present Location: LLE (lateral aspect 5th MTP.) Quality / character: Painful, Discolored (red), Swelling Associated symptoms: Myalgias (mild). No: Fever, N/V/D Recently seen: Emergency Dept (seen 3 days ago and started on Keflex. Wound culture was ordered but appears to have been cancelled in the lab. Patient states redness some less, but swelling is increased.) Review of Systems Constitutional: denies: Fever, Chills Nose: denies: Rhinorrhea / runny nose, Congestion Throat: denies: Sore throat Respiratory: denies: Cough GI: denies: Nausea, Vomiting PD PAST MEDICAL HISTORY - Past Medical History Past Medical History: Yes Cardiovascular: None Respiratory: COPD Endocrine/Autoimmune: Type 2 diabetes GI: None : None HEENT: None Psych: Bipolar disorder, Panic attacks Musculoskeletal: Osteoarthritis, Chronic back pain Derm: None - Past Surgical History Past Surgical History: Yes General: Other Ortho: Other /[employer] [place]: Hysterectomy, Other - Present Medications Home Medications: Ambulatory Orders Medication Instructions Recorded Confirmed ARIPiprazole [Abilify] 5 mg PO DAILY 05/13/13 02/27/17 Pregabalin [Lyrica] 150 mg PO BID 08/28/13 02/27/17 Albuterol Sulf [Ventolin Hfa Q4HR 12/11/20 Inhaler] Fluoxetine HCl [Prozac] 40 mg PO 12/11/20 12/11/20 Gabapentin [Neurontin] 300 mg PO TID 12/11/20 12/11/20 cephALEXin [Keflex] 500 mg PO Q6H #28 cap 12/11/20 cloNIDine [Catapres] 0.1 mg PO 12/11/20 metFORMIN [Glucophage] 500 mg 12/11/20 Doxycycline Hyclate 100 mg PO BID #14 12/14/20 Mupirocin Calcium [Mupirocin] 1 applic TP TID #15 gm 12/14/20 - Allergies Allergies/Adverse Reactions: Allergies Allergy/AdvReac Type Severity Reaction Status Date / Time acetaminophen [From Percocet] Allergy Unknown Verified 12/14/20 06:13 oxycodone Allergy Unknown Verified 12/14/20 06:13 oxycodone HCl * Allergy Unknown Verified 12/14/20 06:13 [From Percocet] codeine [Codeine] AdvReac Severe Rash Verified 12/14/20 06:13 - Social History Does the pt smoke?: Yes Smoking Status: Current every day smoker Does the pt drink ETOH?: No Does the pt have substance abuse?: Yes - Immunizations Immunizations are current?: Yes - POLST Patient has POLST: No PD ED PE NORMAL - Vitals Vital signs reviewed: Yes - General General: Alert and oriented X 3, No acute distress, Well developed/nourished - Extremities Extremities: Other (The left foot on the lateral fifth MT P area with 1 cm ulceration. There is redness and swelling and tenderness to the dorsum of the foot. The swelling is slightly beyond a drawn blue line with marker but the redness has receded from it. Mild drainage at surface of the ulcer. No fluctuance. ) - Neuro Neuro: Alert and oriented X 3, No motor deficit, No sensory deficit, Normal speech Results - Vitals Vitals: Vital Signs - 24 hr 12/14/20 06:08 Temperature 36.8 C Heart Rate 88 Respiratory 17 Rate Blood Pressure 144/71 H O2 Saturation 98 Oxygen O2 Source Room air - Labs Labs: Laboratory Tests 12/14/20 12/14/20 06:40 06:40 WBC 11.5 H RBC 4.60 Hgb 12.9 Hct 40.0 MCV 87.0 MCH 28.0 MCHC 32.3 RDW 14.1 Plt Count 374 MPV 10.2 Neut # (Auto) 8.6 H Lymph # (Auto) 1.8 [place] # (Auto) 0.5 Eos # (Auto) 0.3 Baso # (Auto) 0.1 Absolute Nucleated RBC 0.00 Nucleated RBC % 0.0 Sodium 137 Potassium 3.9 Chloride 97 L Carbon Dioxide 28 Anion Gap 12.0 BUN 18 Creatinine 1.0 Estimated GFR (MDRD) 60 L Glucose 185 H Calcium 9.6 Total Creatine Kinase 28 C-Reactive Protein 15.2 H PD MEDICAL DECISION MAKING - ED course Complexity details: reviewed old records (wound culture had been cancelled in lab from prior visit. No clear reason. ), reviewed results (WBC and CRP are slightly lower. Infection seems about stagnant, slightly less red but slightly more swollen. Can add Doxy and Mupirocoin. ), considered differential, d/w patient Departure - Departure Disposition: 01 Home, Self Care Clinical Impression: Cellulitis Qualifiers: Site of cellulitis: extremity Site of cellulitis of extremity: lower extremity Laterality: left Qualified Code(s): L03.116 - Cellulitis of left lower limb Diabetic foot ulcer associated with type 2 diabetes mellitus, with fat layer e xposed Qualifiers: Diabetic foot ulcer location: midfoot Laterality: left Qualified Code(s): E11.621 - Type 2 diabetes mellitus with foot ulcer Condition: Stable Record reviewed to determine appropriate education?: Yes Follow-Up: Merritt Rush DO [Primary Care Provider] - Prescriptions: Doxycycline Hyclate 100 mg PO BID #14 Mupirocin Calcium [Mupirocin] 1 applic TP TID #15 gm Comments: Cleanse the wound once or twice daily with soap and water or gentle soaking in warm water for 10 to 15 minutes. Apply mupirocin antibiotic ointment after that twice daily. Keep it covered with some dressing. Follow-up with the wound care clinic this week, call later today for an appointment if possible. I would continue the cephalexin antibiotic and to that add doxycycline twice daily for now. Your blood test markers are showing some slight improvement so seems like the antibiotic is helping some. Will supplement with the second antibiotic and see how you do on the redness and swelling part. We would hope for that portion of it to be improving well in the next couple of days.
[2020-12-14] MEDS ORDERED: MUPIROCIN 2% OINT 1 GM TOP STA (06:24)
[2020-12-14] MEDS ORDERED: DOXYCYCLINE 100 MG TABLET PO STA (06:24)
[2020-12-14] MEDS ORDERED: cefTRIAXone 1 GM VIAL IM STA (06:29)
[2020-12-14] MEDS ORDERED: LIDOCAINE 1% 2 ML VIAL MC ONE (06:29)
[2020-12-14] MEDS ORDERED: KETOROLAC 15 MG/ML VIAL IM STA (06:29)
[2020-12-14 06:46] LABS: BASOPHILS # (AUTO) 0.1 10^3/uL (0.0-0.1); BASOPHILS % (AUTO) 0.7 %; EOSINOPHILS # (AUTO) 0.3 10^3/uL (0.0-0.7); EOSINOPHILS % (AUTO) 2.4 %; HGB - HEMOGLOBIN 12.9 g/dL (12.0-16.0); LYMPHOCYTES # (AUTO) 1.8 10^3/uL (1.5-3.5); MEAN CORPUSCULAR HGB CONC 32.3 g/dL (32.0-36.0); MEAN PLATELET VOLUME 10.2 fL (7.9-10.8); MONOCYTES # (AUTO) 0.5 10^3/uL (0.0-1.0); MONOCYTES % (AUTO) 4.1 %; NEUTROPHILS # (AUTO) 8.6 10^3/uL (1.5-6.6); NEUTROPHILS % (AUTO) 74.7 %; PLT - PLATELET COUNT 374 10^3/uL (130-450); RED CELL DISTRIBUTION WIDTH 14.1 % (12.0-15.0); WHITE BLOOD COUNT 11.5 x10^3/uL (4.8-10.8)
[2020-12-14 07:08] LABS: CALCIUM 9.6 mg/dL (8.5-10.3); CRP - C-REACTIVE PROTEIN 15.2 mg/dL (0-1.0); POTASSIUM 3.9 mmol/L (3.5-5.0)
[2020-12-14] MEDS ORDERED: ONDANSETRON ODT 4 MG TABLET TL STA (07:09)
== END 2020-12-14 07:47 | disposition home or self-care (01) ==
LOC: ED 05:46
DX: L03.116 Cellulitis of left lower limb (principal); E11.621 Type 2 diabetes mellitus with foot ulcer; L97.529 Non-pressure chronic ulcer of other part of left foot with unspecified severity; Z79.84 Long term (current) use of oral hypoglycemic drugs; F17.200 Nicotine dependence, unspecified, uncomplicated
CPT/HCPCS: 36415; 80048; 82550; 85025; 86140; 87070; 87181; 87205; 96372; 99283; A9270; Q0162

== ENCOUNTER 2020-12-16 07:16 | Outpatient (CLI) | payer MEDICARE, MEDICAID ==
--- NOTE | 2020-12-16 14:05 | XRAY Report ---
PROCEDURE: Chest 2 View X-Ray INDICATIONS: COUGH TECHNIQUE: 2 view(s) of the chest. COMPARISON: CT chest 07/26/2019 and 2 view chest 08/24/2014. FINDINGS: Surgical changes and devices: None. Lungs and pleura: No pleural effusions or pneumothorax. Lungs are clear. Mediastinum: Mediastinal contours are normal. Heart size is normal. Bones and chest wall: No suspicious bony abnormalities. Soft tissues appear unremarkable. IMPRESSION: Normal for age, source of current symptoms is not seen. Reviewed by: Shalom Lazo MD on 12/16/2020 2:04 PM PDT Approved by: Shalom Lazo MD on 12/16/2020 2:04 PM PDT Station ID: [id number]
== END 2020-12-16 07:17 | disposition home or self-care (01) ==
LOC: DI.N 07:16
PROVIDERS: ATTEND Family Medicine
DX: R05 Cough (principal)

== ENCOUNTER 2020-12-29 07:28 | Outpatient (CLI) | payer MEDICARE, MEDICAID | END 2020-12-29 23:59 | disposition home or self-care (01) | LOC: LAB.N 07:28 | PROVIDERS: ATTEND Emergency Medicine | DX: E11.621 Type 2 diabetes mellitus with foot ulcer (principal); L02.211 Cutaneous abscess of abdominal wall | CPT/HCPCS: 87070; 87205 ==

== ENCOUNTER 2020-12-29 08:00 | Outpatient (CLI) | payer MEDICARE, MEDICAID ==
--- NOTE | 2021-01-10 14:37 | XRAY Report ---
PROCEDURE: Foot 3 View LT INDICATIONS: DIABETIC FOOT ULCER TECHNIQUE: 3 views of the foot were acquired. COMPARISON: 12/11/2020 FINDINGS: Bones: No fractures or dislocations. Hardware and osseous fusion at the first tarsal metatarsal join t. There are 4 screws fixing the lateral hindfoot, one of which is fractured. Chronic deformity of a healed second distal metatarsal fracture. Severe degeneration at the first TMT joint. Prominent dorsa l spurring along the hindfoot and midfoot. No visible erosions changes along the fifth digit on the g iven views. No suspicious bony lesions. Soft tissues: Marked soft tissue swelling lateral to the fifth metatarsal phalangeal joint. No radio dense foreign body present. This is increased compared to the prior study. No tibiotalar joint effusi on. Achilles tendon appears normal. IMPRESSION: 1. Increased soft tissue swelling lateral to the fifth metatarsal and digit without radiographic evid ence of erosive change, however please refer to CT of the foot performed on the same day. 2. Chronic posttraumatic, postoperative, and degenerative findings in the foot without significant ch ruthy since 12/11/2020. Reviewed by: Viviane Del Cid MD on 12/29/2020 11:16 AM PDT Approved by: Viviane Del Cid MD on 12/29/2020 11:16 AM PDT Station ID: [id number]
== END 2020-12-29 23:59 | disposition home or self-care (01) ==
LOC: DI.N 08:00
PROVIDERS: ATTEND Emergency Medicine
DX: E11.621 Type 2 diabetes mellitus with foot ulcer (principal); M19.072 Primary osteoarthritis, left ankle and foot

== ENCOUNTER 2020-12-29 09:12 | Outpatient (CLI) | payer MEDICARE, MEDICAID ==
[2020-12-29] MEDS ORDERED: IOVERSOL 320 100 ML VIAL IVP ONE ×2 (09:26→10:18)
--- NOTE | 2020-12-29 10:40 | CT Report ---
PROCEDURE: LOWER EXTREMITY W - LT INDICATIONS: DIABETIC FOOT ULCER CONTRAST: IV CONTRAST: Optiray 320 ml: 100 PO CONTRAST: *NO PO CONTRAST TECHNIQUE: After the administration of intravenous contrast, 1 mm axial sections acquired of the left, with darrell nal and sagittal reformats. COMPARISON: Left foot plain films from the same date FINDINGS: Image quality: Excellent. Bones: Extensive midfoot changes of Charcot foot are noted with hindfoot/midfoot fusion hardware not ed. There is a peripherally enhancing abscess along the dorsal foot at the level of the head of the f ifth metatarsal, which extends to the head of the fifth metatarsal, at the level of the MTP joint. Th ere is cortical disruption at the plantar aspect of the head of the fifth metatarsal, well seen on im age 24/7 (sagittal bone window), consistent with osteomyelitis. There is also evidence of a joint eff usion (image 23/16, sagittal soft tissue windows), which likely indicates a septic fifth MTP joint. Soft tissues: There is a plantar foot abscess extending to the plantar aspect of the head of the fif th metatarsal measuring approximately 1.4 cm in diameter. There is also a fifth MTP joint effusion wh ich may represent septic joint. There is associated abscess which extends between the fourth and fift h metatarsals ventrally which is well seen on image 33/16 and image 110/15 (axial soft tissue window) . This abscess measures approximately 1.3 x 0.6 cm. IMPRESSION: 1. Plantar abscess at the level of the fifth metatarsal head extending to the bone with associated os teomyelitis. There is extension of abscess ventrally between the fourth and fifth metatarsal heads. T here is also fifth MTP joint fluid suggesting septic joint. 2. Charcot foot. Reviewed by: Miguel Nichols MD on 12/29/2020 10:39 AM PDT Approved by: Miguel Nichols MD on 12/29/2020 10:39 AM PDT Station ID: [id number]
== END 2020-12-29 09:13 | disposition home or self-care (01) ==
LOC: DI 09:12
PROVIDERS: ATTEND Emergency Medicine
DX: L02.612 Cutaneous abscess of left foot (principal); E11.69 Type 2 diabetes mellitus with other specified complication; M86.9 Osteomyelitis, unspecified; E11.610 Type 2 diabetes mellitus with diabetic neuropathic arthropathy; D50.9 Iron deficiency anemia, unspecified
CPT/HCPCS: 73701; Q9967; 87070; 87205

== ENCOUNTER 2021-01-13 07:00 | Outpatient (CLI) | payer MEDICARE, MEDICAID ==
--- NOTE | 2021-01-13 12:02 | XRAY Report ---
PROCEDURE: Foot 3 View LT INDICATIONS: L FOOT PX TECHNIQUE: 3 views of the foot were acquired. COMPARISON: 12/29/2020. FINDINGS: Bones: Orthopedic hardware in the base of the first metatarsal is stable in appearance. Orthopedic h ardware in the midfoot placed for calcaneocuboid arthrodesis is stable with fractured orthopedic scre w at the level of the calcaneocuboid joint. Chronic second metatarsal fracture stable in appearance. No acute fractures or dislocations. No suspicious bony lesions. No periosteal reaction or osseous er osive changes. Soft tissues: No tibiotalar joint effusion. Achilles tendon appears normal. Soft tissue swelling is noted suspicious for cellulitis. No soft tissue gas. IMPRESSION: 1. Stable examination compared to 12/29/2020. 2. No familia evidence of osteomyelitis. Plain from radiographs can be insensitive for osteomyelitis in itial 15 days of the disease process. 3. Soft tissue swelling suspicious for cellulitis. Reviewed by: Lilli Laguna MD, PhD on 01/13/2021 12:01 PM PDT Approved by: Lilli Laguna MD, PhD on 01/13/2021 12:01 PM PDT Station ID: [id number]
== END 2021-01-13 23:59 | disposition home or self-care (01) ==
LOC: DI.N 07:00
PROVIDERS: ATTEND Orthopaedic Surgery
DX: M79.672 Pain in left foot (principal); R22.42 Localized swelling, mass and lump, left lower limb

== ENCOUNTER 2021-01-14 06:10 | Day surgery (SDC) | payer MEDICARE, MEDICAID ==
[2021-01-14] MEDS ORDERED: GABAPENTIN 400 MG CAPSULE ONE (06:26)
[2021-01-14] MEDS ORDERED: CELECOXIB 100 MG CAPSULE PO ONE (06:26)
[2021-01-14] MEDS ORDERED: ACETAMINOPHEN 1,000 MG/100 ML 100 ML IV ONE (06:26)
[2021-01-14] MEDS ORDERED: LACTATED RINGERS 1,000 ML IV ONE ×2 (06:33→08:52)
[2021-01-14 06:53] LABS: HCG UR QUAL NEGATIVE
[2021-01-14] MEDS ORDERED: MIDAZOLAM 2 MG/2 ML VIAL ONE (07:13)
[2021-01-14] MEDS ORDERED: PROPOFOL 200 MG/20 ML VIAL IVP ONE (07:13)
[2021-01-14] MEDS ORDERED: fentaNYL 100 MCG/2 ML VIAL ONE (07:13)
[2021-01-14] MEDS ORDERED: LIDOCAINE-MPF 2% 5 ML VIAL ONE (07:13)
[2021-01-14] MEDS ORDERED: NALOXONE 0.4 MG/ML VIAL IVP PRN (07:18)
[2021-01-14] MEDS ORDERED: ePHEDrine 50 MG/ML VIAL IVP PRN (07:18)
[2021-01-14] MEDS ORDERED: MORPHINE 2 MG/ML CARPUJECT IVP PRN (07:18)
[2021-01-14] MEDS ORDERED: HYDROmorphone 0.5 MG/0.5 ML SYRINGE IVP PRN (07:18)
[2021-01-14] MEDS ORDERED: ATROPINE ABBOJECT 1 MG/10 ML SYRINGE IVP PRN (07:18)
[2021-01-14] MEDS ORDERED: fentaNYL 100 MCG/2 ML VIAL IVP PRN (07:18)
[2021-01-14] MEDS ORDERED: METOCLOPRAMIDE 10 MG/2 ML VIAL IVP PRN (07:18)
[2021-01-14] MEDS ORDERED: ONDANSETRON 4 MG/2 ML VIAL IVP PRN ×2 (07:18→08:48)
--- NOTE | 2021-01-14 07:18 | ANESTHESIA ---
Pre-Anesthesia VS, & Labs - Diagnosis osteomyelitis of left 5th toe - Procedure L 5th toe ray amputation Vital Signs: Temp Pulse Resp BP Pulse Ox 36.3 C L 85 12 96 01/14/21 06:33 01/14/21 06:33 01/14/21 06:33 01/14/21 06:33 Height: 5 ft 7 in Weight (kg): 106 kg Body Mass Index: 36.6 BMI Classification: Obese - NPO >8 hours - Is Patient ?: No - Lab Results Lab results reviewed: Yes Home Medications and Allergies ARIPiprazole [Abilify] 10 mg PO QPM 05/13/13 Pregabalin [Lyrica] 150 mg PO BID 08/28/13 Albuterol Sulf [Ventolin Hfa Inhaler] 1 puffs INH Q4HR 12/11/20 Fluoxetine HCl [Prozac] 80 mg PO DAILY 12/11/20 Gabapentin [Neurontin] 300 mg PO TID 12/11/20 Clonidine HCl [Clonidine HCl ER] 0.1 mg PO QPM 12/29/20 Metformin HCl [Fortamet] 500 mg PO DAILY 12/29/20 Allergies/Adverse Reactions: Allergies Allergy/AdvReac Type Severity Reaction Status Date / Time oxycodone Allergy Unknown Verified 12/29/20 13:41 oxycodone HCl * Allergy Unknown Verified 12/29/20 13:41 [From Percocet] codeine [Codeine] AdvReac Severe Rash Verified 12/29/20 13:41 Anes History & Medical History - Anesthetic History Anesthesia Complications: reports: No previous complications, Muscle weakness Family history of Anesthesia Complications: Denies Family history of Malignant Hyperthermia: Denies - Medical History Cardiovascular: reports: None, Murmur (remote hx) Pulmonary: reports: COPD Gastrointestinal: reports: None Urinary: reports: None Musculoskeletal: reports: Osteoarthritis, Chronic back pain Endocrine/Autoimmune: reports: Type 2 diabetes Skin: reports: None Smoking Status: Former smoker - Surgical History General: reports: Other Urologic: reports: Bladder surgery Gynecologic: reports: Hysterectomy, Other Orthopedic: reports: Other Exam General: Alert, Oriented x3, Cooperative Dental: WNL Mouth Opening: Greater than 4 Fingerbreadths Neck Mobility: Normal Mallampati classification: I Thyromental Distance: 4-6 cm Respiratory: Wheezing (faint @upper right) Cardiovascular: Regular rate Neurological: Normal speech Mental/Cognitive Status: Alert/Oriented X3, Normal for patient Cognitive Status: Within normal limits Plan Anesthesia Type: General Consent for Procedure(s) Verified and Reviewed: No Code Status: Attempt Resuscitation ASA classification: 2-Mild systemic disease Is this case an emergency?: No
[2021-01-14] MEDS ORDERED: LIDOCAINE MPF 2%-EPI 1:200000 20 ML VIAL ONE (07:22)
[2021-01-14] MEDS ORDERED: BUPIVACAINE 0.5% PF 30 ML VIAL ONE (07:22)
[2021-01-14] MEDS ORDERED: BACITRACIN 50,000 UNIT VIAL ONE (07:22)
[2021-01-14] MEDS ORDERED: BACITRACIN ZINC OINT 1 PACKET TOP ONE (07:22)
[2021-01-14] MEDS ORDERED: DEXAMETHASONE 4 MG/ML VIAL ONE (07:57)
[2021-01-14] MEDS ORDERED: ceFAZolin 1 GM VIAL ONE (07:57)
[2021-01-14] MEDS ORDERED: LACTATED RINGERS 1,000 ML IV SCH (08:00)
[2021-01-14] MEDS ORDERED: VANCOMYCIN 1 GM VIAL ONE (08:03)
[2021-01-14] MEDS ORDERED: LIDOCAINE MPF 1%-EPI 1:200000 30 ML VIAL SUBQ ONE ×2 (08:16)
[2021-01-14] MEDS ORDERED: BUPIVACAINE 0.5%-EPI 1:200000 PF 30 ML VIAL SUBQ ONE ×2 (08:16)
[2021-01-14] MEDS ORDERED: VANCOMYCIN 1 GM VIAL MC ONE (08:38)
--- NOTE | 2021-01-14 08:46 | OPERATIVE REPORT ---
Operative Report - General Procedure Date: 01/14/21 Planned Procedure: Left 5th metatarsal ray amputation Pre-Op Diagnosis: Osteomyelitis left 5th metatarsal head Procedure Performed: Left 5th metatarsal ray amputation Post Op Diagnosis: Same as preoperative diagnosis - Procedure Note Primary Surgeon: Augie Mary MD Secondary Surgeon: Saleem HERNÁNDEZ Anesthesia Provider: Melisa Sanchez CRNA Anesthesia Technique: General LMA, Regional block Estimated Blood Loss (mL): 10 Indications: This is a 45-year-old woman with chronic left foot problems. She has neuropathy associated with Kvzxqnv-Jmfll-Xxeyz disease and diabetes. She has a cavovarus deformity led to previous ulceration, soft tissue and bone infection to the left 5th metatarsal head. She had been in the hospital before, treated for ulceration and antibiotics for infection. She was placed in a offloading boot walker. She has improved with decreased redness, swelling and signs of acute infection. Her ulceration has healed but has had some recurrence of swelling, redness and pain over the left 5th metatarsal area. Her previous x-rays have shown cortical irregularity and defect about the left 5th metatarsal head, best confirmed with a CT scan. The osteomyelitis of the 5th metatarsal head most likely secondary from previous ulceration that communicated with 5th metatarsal phalangeal joint and 5th metatarsal head. Her ulceration developed as a result of a nonplantigrade foot and not wearing a orthosis to keep the foot in a plantigrade position for weightbearing Findings: The soft tissues and bone did not show any acute infection, no pus, no necrosis. The 5th metatarsal head did show deformity and signs of chronic osteomyelitis. The bone specimen was sent to pathology for culture. There is no cellulitis or pockets of pus. Complications: None - Other Other Information/Narrative: The patient was brought to the operating room, placed in the supine position with a bump beneath the left buttock. After satisfactory general anesthesia was achieved, the left lower extremity was prepped and draped in sterile manner in usual fashion. A timeout procedure was performed by the entire operating room team and all were in agreement. A rubber bandage was used to exsanguinate the foot and was wrapped circumferentially three times above the ankle over padded stockinette where it was secured to act as a tourniquet. A dorsal longitudinal incision with a racquet over the toe was made. The toe was amputated at the metatarsophalangeal joint after division of collateral ligaments and capsule both plantar and dorsal. The distal metatarsal was exposed and divided with a microsagittal saw using a plantar bevel. The tourniquet was removed. Hemostasis was achieved with electrocautery. There was good circulation to the wound. There is no sign of bone infection at the amputation site. Vancomycin powder was placed in the wound. The skin was closed with interrupted 2-0 nylon, skin edges with 4-0 nylon. Xeroform fluffs and a dry sterile bulky dressing was applied to the left foot. After cultures were obtained, 2 g of Ancef were ordered as well as a gram of vancomycin. She tolerated the procedure well. A physician household assistant was utilized to provide exposure, protection of vital structures and assist in wound closure and dressing
[2021-01-14] MEDS ORDERED: KETOROLAC 15 MG/ML VIAL IVP STA (08:48)
[2021-01-14] MEDS ORDERED: traMADol 50 MG TABLET PO PRN (08:48)
--- NOTE | 2021-01-14 09:37 | ANESTHESIA POST OP EVALUATION ---
Anesthesia Post Eval - Post Anesthesia Eval Vitals: Last Vital Signs Temp 36.4 C L 01/14/21 09:11 Pulse 83 01/14/21 09:30 Resp 14 01/14/21 09:30 BP 129/79 01/14/21 09:30 Pulse Ox 96 01/14/21 09:30 CV Function Including HR & BP: Stable Pain Control: Satisfactory Nausea & Vomiting: Negative Mental Status: Baseline Respiratory Status: Airway Patent Hydration Status: Satisfactory Anesthesia Complications: None
[2021-01-14 09:48] VITALS: BP 132/64
== END 2021-01-14 06:11 | disposition home or self-care (01) ==
LOC: SDS 06:10
PROVIDERS: ATTEND Orthopaedic Surgery
PROC: 0Y6N0Z8 Detachment at Left Foot, Complete 5th Ray, Open Approach (ICD-10-PCS; principal; 2021-01-14 07:30)
DX: E11.69 Type 2 diabetes mellitus with other specified complication (principal); M86.9 Osteomyelitis, unspecified; E11.610 Type 2 diabetes mellitus with diabetic neuropathic arthropathy; J44.9 Chronic obstructive pulmonary disease, unspecified; F31.9 Bipolar disorder, unspecified; F17.210 Nicotine dependence, cigarettes, uncomplicated; E66.9 Obesity, unspecified; Z68.36 Body mass index [BMI] 36.0-36.9, adult; Z91.19 Patient's noncompliance with other medical treatment and regimen; Z79.84 Long term (current) use of oral hypoglycemic drugs; Z79.899 Other long term (current) drug therapy
CPT/HCPCS: 81025; 81599; 87070; 87075; 87077; 87181; 87186; 87205

== ENCOUNTER 2021-01-19 08:00 | Outpatient (CLI) | payer MEDICARE, MEDICAID ==
[2021-01-19 12:29] LABS: BASOPHILS # (AUTO) 0.1 10^3/uL (0.0-0.1); BASOPHILS % (AUTO) 0.6 %; EOSINOPHILS # (AUTO) 0.3 10^3/uL (0.0-0.7); HCT - HEMATOCRIT 40.3 % (37.0-47.0); HGB - HEMOGLOBIN 12.8 g/dL (12.0-16.0); LYMPHOCYTES % (AUTO) 34.7 %; MEAN CORPUSCULAR HEMOGLOBIN 27.9 pg (27.0-31.0); MEAN CORPUSCULAR HGB CONC 31.8 g/dL (32.0-36.0); MEAN PLATELET VOLUME 10.6 fL (7.9-10.8); MONOCYTES # (AUTO) 0.4 10^3/uL (0.0-1.0); MONOCYTES % (AUTO) 4.1 %; NEUTROPHILS # (AUTO) 4.7 10^3/uL (1.5-6.6); NEUTROPHILS % (AUTO) 55.9 %; PLT - PLATELET COUNT 283 10^3/uL (130-450); RED BLOOD COUNT 4.58 10^6/uL (4.20-5.40); RED CELL DISTRIBUTION WIDTH 15.8 % (12.0-15.0); WHITE BLOOD COUNT 8.5 x10^3/uL (4.8-10.8)
[2021-01-19 12:47] LABS: ALBUMIN 3.8 g/dL (3.2-5.5); ALBUMIN/GLOBULIN RATIO 1.1 (1.0-2.2); ALKALINE PHOSPHATASE 61 IU/L (42-121); ALT ALANINE AMINOTRANSFERASE 17 IU/L (10-60); AST ASPARTATE AMINOTRANSFERASE 18 IU/L (10-42); BILIRUBIN,TOTAL 0.5 mg/dL (0.2-1.0); BUN - BLOOD UREA NITROGEN 20 mg/dL (6-20); CALCIUM 9.5 mg/dL (8.5-10.3); CARBON DIOXIDE - CO2 24 mmol/L (21-32); CHLORIDE 102 mmol/L (101-111); CHOL/HDL RATIO 6.5 (<4.4); CHOLESTEROL 247 mg/dL; CREATININE 1.1 mg/dL (0.4-1.0); GFR - MDRD 53 (>89); GLUCOSE 108 mg/dL (70-100); HDL CHOLESTEROL 38 mg/dL; LDL CHOLESTEROL,CALCULATED 149 mg/dL; LDL/HDL RATIO 3.9 (<4.4); POTASSIUM 4.3 mmol/L (3.5-5.0); SODIUM 135 mmol/L (135-145); TOTAL PROTEIN 7.3 g/dL (6.7-8.2); TRIGLYCERIDES 299 mg/dL; VLDL CHOLESTEROL 60 mg/dL
[2021-01-19 12:55] LABS: CREATININE,URINE 85.2 mg/dL; MICROALBUM/CREATININE RATIO,UR 64.6 ug/mg (<30.0); MICROALBUMIN,URINE 5.5 mg/dL (0-300.0)
[2021-01-19 12:58] LABS: ESTIMATED AVERAGE GLUCOSE 137 mg/dL (70-100); HEMOGLOBIN A1c% 6.4 % (4.27-6.07)
== END 2021-01-19 23:59 | disposition home or self-care (01) ==
LOC: LAB.WCP 08:00
PROVIDERS: ATTEND Family Medicine
DX: E11.9 Type 2 diabetes mellitus without complications (principal)
CPT/HCPCS: 36415; 80053; 80061; 82043; 82570; 83036; 83721; 85025

== ENCOUNTER 2021-03-01 15:15 | Outpatient (CLI) | payer MEDICARE, MEDICAID ==
--- NOTE | 2021-03-01 18:11 | XRAY Report ---
PROCEDURE: Ankle 3 View LT INDICATIONS: L ANKLE PX TECHNIQUE: 3 views of the ankle were acquired. COMPARISON: None FINDINGS: Bones: No fractures or dislocations. Ankle mortise is normally aligned. No suspicious bony lesions . Orthopedic hardware in the hindfoot is partially imaged Soft tissues: No tibiotalar joint effusion. Achilles tendon appears normal. IMPRESSION: Unremarkable ankle radiographs with maintenance of the ankle mortise. Partially imaged orthopedic hardware noted in the left mid foot and hindfoot Reviewed by: Walter Watson MD on 03/01/2021 5:10 PM [facility] Approved by: Walter Watson MD on 03/01/2021 5:10 PM [facility] Station ID: [id number]
== END 2021-03-01 23:59 | disposition home or self-care (01) ==
LOC: DI.N 15:15
PROVIDERS: ATTEND Orthopaedic Surgery
DX: M25.572 Pain in left ankle and joints of left foot (principal)

== ENCOUNTER 2021-04-26 13:00 | Outpatient (CLI) | payer MEDICARE, MEDICAID ==
--- NOTE | 2021-04-26 16:53 | XRAY Report ---
PROCEDURE: Knee 4 View BILAT INDICATIONS: OSTEOARTHRITIS TECHNIQUE: 3 views of the left and right knee(s) were acquired. COMPARISON: None. FINDINGS: There is borderline patella edna. On the right, scattered degenerative spurring and sclerosis.No effusion. Mild narrowing of medial darrius nt space. There is severe patellofemoral joint space narrowing with lateral patellar tilt. There are ununited osteophytes adjacent to the patella On the left, scattered degenerative spurring and sclerosis. Mild narrowing of the medial joint space. No joint effusion. Severe patellofemoral joint space narrowing. Ununited osteophytes adjacent to the patella IMPRESSION: Severe bilateral knee joint degeneration, most pronounced in the patellofemoral compartm ents. Borderline bilateral patella edna. Reviewed by: Jose Carlos Sandhu MD on 04/26/2021 4:52 PM PST Approved by: Jos eCarlos Sandhu MD on 04/26/2021 4:52 PM PST Station ID: [id number]
== END 2021-04-26 23:59 | disposition home or self-care (01) ==
LOC: DI.N 13:00
PROVIDERS: ATTEND Physician Assistant
DX: M17.0 Bilateral primary osteoarthritis of knee (principal)

== ENCOUNTER 2021-05-02 10:40 | Outpatient (CLI) | payer MEDICARE, MEDICAID ==
[2021-05-02 18:37] LABS: BASOPHILS # (AUTO) 0.1 10^3/uL (0.0-0.1); BASOPHILS % (AUTO) 0.6 %; EOSINOPHILS # (AUTO) 0.3 10^3/uL (0.0-0.7); EOSINOPHILS % (AUTO) 2.7 %; HCT - HEMATOCRIT 45.3 % (37.0-47.0); HGB - HEMOGLOBIN 14.1 g/dL (12.0-16.0); LYMPHOCYTES # (AUTO) 3.4 10^3/uL (1.5-3.5); LYMPHOCYTES % (AUTO) 29.6 %; MEAN CORPUSCULAR HEMOGLOBIN 27.7 pg (27.0-31.0); MEAN CORPUSCULAR HGB CONC 31.1 g/dL (32.0-36.0); MEAN PLATELET VOLUME 10.7 fL (7.9-10.8); MONOCYTES # (AUTO) 0.5 10^3/uL (0.0-1.0); MONOCYTES % (AUTO) 4.3 %; NEUTROPHILS % (AUTO) 62.2 %; PLT - PLATELET COUNT 296 10^3/uL (130-450); RED BLOOD COUNT 5.09 10^6/uL (4.20-5.40); RED CELL DISTRIBUTION WIDTH 14.5 % (12.0-15.0); WHITE BLOOD COUNT 11.3 x10^3/uL (4.8-10.8)
[2021-05-02 20:01] LABS: ESTIMATED AVERAGE GLUCOSE 146 mg/dL (70-100); HEMOGLOBIN A1c% 6.7 % (4.27-6.07)
== END 2021-05-02 23:59 | disposition home or self-care (01) ==
LOC: LAB.WCP 10:40
PROVIDERS: ATTEND Nurse Practitioner
DX: E11.9 Type 2 diabetes mellitus without complications (principal); K62.5 Hemorrhage of anus and rectum
CPT/HCPCS: 36415; 83036; 85025

== ENCOUNTER 2021-07-14 07:32 | Outpatient (CLI) | payer MEDICARE, MEDICAID ==
--- NOTE | 2021-07-14 12:15 | XRAY Report ---
PROCEDURE: Ankle 3 View RT INDICATIONS: ANKLE/FOOT PAIN TECHNIQUE: 3 views of the ankle were acquired. COMPARISON: None FINDINGS: Bones: Joint space is maintained. No arthritic features. No significant degenerative changes. No frac tures or dislocations. Ankle mortise is normally aligned. No suspicious bony lesions. Soft tissues: No tibiotalar joint effusion. Achilles tendon appears normal. IMPRESSION: No acute finding or significant degenerative change. Reviewed by: Amarjit Farfan MD on 07/14/2021 12:14 PM PST Approved by: Amarjit Farfan MD on 07/14/2021 12:14 PM PST Station ID: [id number]
--- NOTE | 2021-07-14 13:57 | XRAY Report ---
PROCEDURE: Foot 3 View RT INDICATIONS: ANKLE/FOOT PAIN TECHNIQUE: 3 views of the foot were acquired. COMPARISON: January 13, 2021 FINDINGS: BONES: No acute, displaced fracture or dislocation. Redemonstrated extension at the MTPs and flexion at the PIPs. SOFT TISSUES: No focal abnormality. IMPRESSION: 1.No acute osseous abnormality. Reviewed by: Jerry Teresa MD on 07/14/2021 1:55 PM PST Approved by: Jerry Teresa MD on 07/14/2021 1:55 PM [facility] Station ID: [id number]
== END 2021-07-14 07:33 | disposition home or self-care (01) ==
LOC: DI.WOS 07:32
PROVIDERS: ATTEND Orthopaedic Surgery
DX: M14.671 Charcot's joint, right ankle and foot (principal); L84 Corns and callosities

== ENCOUNTER 2021-08-25 08:00 | Outpatient (CLI) | payer MEDICARE, MEDICAID ==
--- NOTE | 2021-08-25 09:23 | XRAY Report ---
PROCEDURE: Ankle 3 View LT INDICATIONS: LEFT ANKLE PAIN TECHNIQUE: 3 views of the ankle were acquired. COMPARISON: March 01, 2021 FINDINGS: BONES: No acute, displaced fracture or dislocation. Redemonstrated fixation hardware in the mid foot and first metatarsal base. The ankle mortise is maintained on these nonstressed views. SOFT TISSUES: Prominent dorsal soft tissue swelling about the talonavicular articulation. Small tibio talar joint effusion. IMPRESSION: 1.Increased soft tissue swelling along the dorsal aspect of the talonavicular articulation. Reviewed by: Jerry Teresa MD on 08/25/2021 9:22 AM PDT Approved by: Jerry Teresa MD on 08/25/2021 9:22 AM PDT Station ID: [id number]
--- NOTE | 2021-08-25 09:30 | XRAY Report ---
PROCEDURE: Foot 3 View LT INDICATIONS: CHARCOT FOOT TECHNIQUE: 3 views of the foot were acquired. COMPARISON: May 22, 2021 FINDINGS: BONES: No acute, displaced fracture. Remote fracture deformity of the second distal metatarsal. Minim al cortical lucency of the fifth metatarsal amputation site. Redemonstrated hardware along the latera l mid foot and first metatarsal base without evidence of hardware compartments. SOFT TISSUES: Lateral soft tissue edema. IMPRESSION: 1.Minimal cortical lucency of the fifth metatarsal amputation site, concerning for early osteomyeliti s versus resorption. Reviewed by: Jerry Teresa MD on 08/25/2021 9:29 AM PDT Approved by: Jerry Teresa MD on 08/25/2021 9:29 AM PDT Station ID: [id number]
== END 2021-08-25 23:59 | disposition home or self-care (01) ==
LOC: DI.WOS 08:00
PROVIDERS: ATTEND Orthopaedic Surgery
DX: S93.412A Sprain of calcaneofibular ligament of left ankle, initial encounter (principal); R93.89 Abnormal findings on diagnostic imaging of other specified body structures; M14.672 Charcot's joint, left ankle and foot; R93.6 Abnormal findings on diagnostic imaging of limbs

== ENCOUNTER 2021-10-03 08:11 | Outpatient (CLI) | payer MEDICARE, MEDICAID ==
--- NOTE | 2021-10-03 11:16 | XRAY Report ---
PROCEDURE: Chest 2 View X-Ray INDICATIONS: COPD TECHNIQUE: 2 view(s) of the chest. COMPARISON: 12/16/2020. FINDINGS: Surgical changes and devices: None. Lungs and pleura: No pleural effusions or pneumothorax. Lungs are clear. Mediastinum: Mediastinal contours are normal. Heart size is normal. Bones and chest wall: No suspicious bony abnormalities. Soft tissues appear unremarkable. IMPRESSION: No acute cardiopulmonary disease process. Reviewed by: Lilli Laguna MD, PhD on 10/03/2021 11:15 AM PDT Approved by: Lilli Laguna MD, PhD on 10/03/2021 11:15 AM PDT Station ID: [id number]
== END 2021-10-03 08:12 | disposition home or self-care (01) ==
LOC: DI.N 08:11
PROVIDERS: ATTEND Family Medicine
DX: J44.9 Chronic obstructive pulmonary disease, unspecified (principal)

== ENCOUNTER 2021-10-20 08:00 | Outpatient (CLI) | payer MEDICARE, MEDICAID ==
[2021-10-20 12:14] LABS: ALBUMIN 3.7 g/dL (3.2-5.5); BASOPHILS # (AUTO) 0.1 10^3/uL (0.0-0.1); BASOPHILS % (AUTO) 0.5 %; BILIRUBIN,TOTAL 0.3 mg/dL (0.2-1.0); BILIRUBIN,URINE NEGATIVE (NEGATIVE); CALCIUM 9.7 mg/dL (8.5-10.3); CREATININE 0.9 mg/dL (0.4-1.0); EOSINOPHILS # (AUTO) 0.1 10^3/uL (0.0-0.7); EOSINOPHILS % (AUTO) 0.7 %; GLUCOSE, URINE (UA) NEGATIVE (NEGATIVE); HCT - HEMATOCRIT 44.4 % (37.0-47.0); HGB - HEMOGLOBIN 14.2 g/dL (12.0-16.0); KETONES,URINE (UA) NEGATIVE (NEGATIVE); LEUKOCYTE ESTERASE, URINE NEGATIVE (NEGATIVE); LYMPHOCYTES # (AUTO) 2.9 10^3/uL (1.5-3.5); LYMPHOCYTES % (AUTO) 26.4 %; MEAN CORPUSCULAR HEMOGLOBIN 28.3 pg (27.0-31.0); MEAN CORPUSCULAR VOLUME 88.4 fL (81.0-99.0); MEAN PLATELET VOLUME 11.2 fL (7.9-10.8); MONOCYTES # (AUTO) 0.6 10^3/uL (0.0-1.0); MONOCYTES % (AUTO) 5.6 %; NEUTROPHILS # (AUTO) 7.3 10^3/uL (1.5-6.6); NEUTROPHILS % (AUTO) 65.9 %; NITRITE,URINE NEGATIVE (NEGATIVE); OCCULT BLOOD,URINE SMALL (NEGATIVE); PH,URINE 6.5 PH (5.0-7.5); PLT - PLATELET COUNT 297 10^3/uL (130-450); POTASSIUM 4.1 mmol/L (3.5-5.0); PROTEIN,URINE 100 mg/dL (NEGATIVE); RED BLOOD COUNT 5.02 10^6/uL (4.20-5.40); RED CELL DISTRIBUTION WIDTH 14.9 % (12.0-15.0); TOTAL PROTEIN 7.5 g/dL (6.7-8.2); UROBILINOGEN,URINE 0.2 (NORMAL) E.U./dL (NORMAL); WHITE BLOOD COUNT 11.1 x10^3/uL (4.8-10.8)
[2021-10-20 12:18] LABS: CLARITY,URINE CLEAR (CLEAR)
[2021-10-20 12:30] LABS: BACTERIA,URINE Few /HPF (None Seen); RBC,URINE 0-5 /HPF (0-5); SQUAMOUS EPITHELIAL CELL,UR FEW Squamous (<= Few); WBC,URINE 0-3 /HPF (0-5)
== END 2021-10-20 23:59 | disposition home or self-care (01) ==
LOC: LAB.N 08:00
PROVIDERS: ATTEND Nurse Practitioner
DX: R10.9 Unspecified abdominal pain (principal); R39.15 Urgency of urination
CPT/HCPCS: 36415; 80053; 81001; 81003; 82150; 83690; 85025; 87086

== ENCOUNTER 2021-11-02 09:13 | Outpatient (CLI) | payer MEDICARE, MEDICAID | END 2021-11-02 09:14 | disposition critical access hospital (66) | LOC: EMS 09:13 | DX: R07.89 Other chest pain (principal); M54.50 Low back pain, unspecified; R10.30 Lower abdominal pain, unspecified; F41.9 Anxiety disorder, unspecified | CPT/HCPCS: A0425; A0427 ==

== ENCOUNTER 2021-11-02 09:33 | Emergency (ER) | payer MEDICARE, MEDICAID ==
--- NOTE | 2021-11-02 09:54 | ED Physician Documentation ---
PD HPI CHEST PAIN - Stated complaint Stated Complaint: CP - Chief complaint Chief Complaint: Cardiac - Additional information Additional information: Patient is a 46-year-old female presenting to the emergency department with past medical significant for diabetes, bipolar, chronic anxiety, Charcot foot disease with 3-day history of chest pressure radiating to her right shoulder. Reports intermittent episodes of left-sided chest pain with electrical sensations radiating to her right shoulder. There is some associated nausea and vomiting with this. She denies any history of cardiac disease, travel, hospitalizations or history of blood clots.She does endorse for longstanding smoking history, for greater than the last 35 years but does report that she attempted to quit 2 months ago and recently relapsed this week. Review of Systems Unable to obtain: Unresponsive Ten Systems: 10 systems reviewed and negative Constitutional: denies: Fever Eyes: denies: Loss of vision Ears: denies: Loss of hearing Nose: denies: Rhinorrhea / runny nose Throat: denies: Dental pain / toothache Cardiac: reports: Chest pain / pressure Respiratory: denies: Dyspnea GI: reports: Nausea, Vomiting : denies: Dysuria Skin: denies: Rash Musculoskeletal: denies: Neck pain Neurologic: denies: Generalized weakness Psychiatric: denies: Depressed Endocrine: denies: Polydypsia PD PAST MEDICAL HISTORY - Past Medical History Cardiovascular: None, Murmur Respiratory: COPD Endocrine/Autoimmune: Type 2 diabetes GI: None : None HEENT: None Psych: Bipolar disorder, Panic attacks Musculoskeletal: Osteoarthritis, Chronic back pain Derm: None - Past Surgical History Past Surgical History: Yes General: Other Ortho: Other /GERONTOLOGICAL NURSE PRACTITIONER: Hysterectomy, Other - Present Medications Home Medications: Ambulatory Orders Medication Instructions Recorded Confirmed ARIPiprazole [Abilify] 10 mg PO QPM 05/13/13 11/02/21 Pregabalin [Lyrica] 150 mg PO DAILY 08/28/13 11/02/21 Albuterol Sulf [Ventolin Hfa 1 puffs INH Q4HR 12/11/20 11/02/21 Inhaler] Fluoxetine HCl [Prozac] 80 mg PO DAILY 12/11/20 11/02/21 Clonidine HCl [Clonidine HCl ER] 0.1 mg PO QPM 12/29/20 11/02/21 Metformin HCl [Fortamet] 500 mg PO DAILY 12/29/20 01/14/21 Ibuprofen [Motrin] 800 mg PO Q8H PRN #30 tablet 11/02/21 Ondansetron Odt [Zofran] 4 mg TL Q6H PRN #10 tablet 11/02/21 Pregabalin [Lyrica] 300 mg PO DAILY PM 11/02/21 11/02/21 - Allergies Allergies/Adverse Reactions: Allergies Allergy/AdvReac Type Severity Reaction Status Date / Time oxycodone Allergy Unknown Verified 11/02/21 09:39 oxycodone HCl * Allergy Unknown Verified 11/02/21 09:39 [From Percocet] codeine [Codeine] AdvReac Severe Rash Verified 11/02/21 09:39 - Social History Does the pt smoke?: Yes Smoking Status: Former smoker Does the pt drink ETOH?: No Does the pt have substance abuse?: Yes - Immunizations Immunizations are current?: Yes - POLST Patient has POLST: No PD ED PE NORMAL - Vitals Vital signs reviewed: Yes - General General: Alert and oriented X 3 - HEENT HEENT: Atraumatic - Neck Neck: Supple, no meningeal sign - Cardiac Cardiac: RRR, No gallop - Respiratory Respiratory: No respiratory distress, Clear bilaterally - Abdomen Abdomen: Normal bowel sounds, Non tender - Female Female : Deferred - Rectal Rectal: Deferred - Derm Derm: Normal color - Extremities Extremities: No deformity - Neuro Neuro: Alert and oriented X 3, center receptionist 2-12 intact, No motor deficit, No sensory deficit Results - Vitals Vitals: Vital Signs - 24 hr 11/02/21 11/02/21 09:39 10:37 Temperature 37 C Heart Rate 86 81 Respiratory 20 15 Rate Blood Pressure 129/77 163/87 H O2 Saturation 97 97 Oxygen O2 Source Room air - EKG (time done) 0940 Rate: Rate (enter#) (78) Rhythm: NSR [place]: Normal Intervals: Normal [place] QRS: Normal Ischemia: Normal ST segments Computer interpretation: Agree with computer - Labs Labs: Laboratory Tests 11/02/21 11/02/21 11/02/21 10:03 10:03 10:03 WBC 11.8 H RBC 4.98 Hgb 14.2 Hct 43.6 MCV 87.6 MCH 28.5 MCHC 32.6 RDW 15.3 H Plt Count 260 MPV 10.1 Neut # (Auto) 8.3 H Lymph # (Auto) 2.6 [place] # (Auto) 0.6 Eos # (Auto) 0.1 Baso # (Auto) 0.0 Absolute Nucleated RBC 0.00 Nucleated RBC % 0.0 Sodium 138 Potassium 4.0 Chloride 100 L Carbon Dioxide 27 Anion Gap 11.0 BUN 22 H Creatinine 0.9 Estimated GFR (MDRD) 67 L Glucose 119 H Calcium 9.3 Total Bilirubin 0.4 AST 15 ALT 19 Alkaline Phosphatase 58 Troponin I High Sens 2.9 Total Protein 7.0 Albumin 3.4 Globulin 3.6 Albumin/Globulin Ratio 0.9 L Lipase 37 PD MEDICAL DECISION MAKING - ED course Complexity details: reviewed results, d/w patient ED course: Patient is 46-year-old female presenting to the emergency department with pain ongoing x3 days. Afebrile, hemodynamically stable on arrival to the emergency department. Patient does have notable risk factors of diabetes and longstanding smoking history. EKG however was benign and patient's high-sensitivity troponin negative. Nothing in her clinical presentation is suggestive of aortic dissection and patient is bothLow risk [place] and PERC negative. At this time will discharge for follow-up with primary care. Otherwise clear return precautions and follow-up instructions given prior to discharge. Departure - Departure Disposition: 01 Home, Self Care Clinical Impression: Chest pain, Nausea and vomiting Instructions: ED Chest Pain Atypical Unkn Cause Prescriptions: Ibuprofen [Motrin] 800 mg PO Q8H PRN #30 tablet PRN Reason: PAIN &/OR FEVER Ondansetron Odt [Zofran] 4 mg TL Q6H PRN #10 tablet PRN Reason: Nausea / Vomiting Comments: Thank you for allowing us to care for you today at [facility]. All the testing performed in the emergency department today including your EKG, blood work and chest x-ray are all very reassuring. There does not appear to be any injury to the heart or other life threatening condition causing your symptoms. I will be discharging you with a A nonsteroidal anti-inflammatory medication as well as a prescription for medication that you can take at home for any ongoing nausea. Please make a follow-up appoint with your primary care doctor soon as possible. If it anytime you develop any new or worsening symptoms please not hesitate to return to the emergency department.
--- OUTSIDE RECORDS SUMMARY | 2021-11-02 09:57 | EXTERNAL MEDICAL SUMMARY RPT | Continuity of Care Document ---
:1975 Author Organization [facility] Address [address] [place] [address] Phone Care Team Providers Name Role Phone Scheidt Unavailable Unavailable Allergies No information. Encounters No information. Medications No information. Problems date description facility [id number] Radiculopathy, lumbar region [facility] Results No information.
--- NOTE | 2021-11-02 09:58 | XRAY Report ---
PROCEDURE: Chest 1 View X-Ray INDICATIONS: Chest Pain TECHNIQUE: One view of the chest was acquired. COMPARISON: Chest x-ray 10/03/2021 FINDINGS: Surgical changes and devices: None. Lungs and pleura: No pleural effusions or pneumothorax. Lungs are clear. Mediastinum: Mediastinal contours appear normal. Heart size is normal. Bones and chest wall: No suspicious bony lesions. Overlying soft tissues appear unremarkable. IMPRESSION: No acute pulmonary process. Reviewed by: Rosa Levy MD on 11/02/2021 9:57 AM PDT Approved by: Rosa Levy MD on 11/02/2021 9:57 AM PDT Station ID: [id number]
[2021-11-02 10:06] LABS: BASOPHILS % (AUTO) 0.3 %; EOSINOPHILS # (AUTO) 0.1 10^3/uL (0.0-0.7); EOSINOPHILS % (AUTO) 1.2 %; HCT - HEMATOCRIT 43.6 % (37.0-47.0); HGB - HEMOGLOBIN 14.2 g/dL (12.0-16.0); LYMPHOCYTES # (AUTO) 2.6 10^3/uL (1.5-3.5); LYMPHOCYTES % (AUTO) 21.8 %; MEAN CORPUSCULAR HEMOGLOBIN 28.5 pg (27.0-31.0); MEAN CORPUSCULAR HGB CONC 32.6 g/dL (32.0-36.0); MEAN CORPUSCULAR VOLUME 87.6 fL (81.0-99.0); MEAN PLATELET VOLUME 10.1 fL (7.9-10.8); MONOCYTES # (AUTO) 0.6 10^3/uL (0.0-1.0); MONOCYTES % (AUTO) 5.2 %; NEUTROPHILS # (AUTO) 8.3 10^3/uL (1.5-6.6); NEUTROPHILS % (AUTO) 70.4 %; PLT - PLATELET COUNT 260 10^3/uL (130-450); RED BLOOD COUNT 4.98 10^6/uL (4.20-5.40); RED CELL DISTRIBUTION WIDTH 15.3 % (12.0-15.0); WHITE BLOOD COUNT 11.8 x10^3/uL (4.8-10.8)
[2021-11-02 10:20] LABS: ALBUMIN 3.4 g/dL (3.2-5.5); ALBUMIN/GLOBULIN RATIO 0.9 (1.0-2.2); BILIRUBIN,TOTAL 0.4 mg/dL (0.2-1.0); CALCIUM 9.3 mg/dL (8.5-10.3); CREATININE 0.9 mg/dL (0.4-1.0)
[2021-11-02 11:36] VITALS: BP 169/99
== END 2021-11-02 11:53 | disposition home or self-care (01) ==
LOC: EDUNIT# → ED 09:33
DX: R07.9 Chest pain, unspecified (principal); R11.2 Nausea with vomiting, unspecified; F17.200 Nicotine dependence, unspecified, uncomplicated; E11.9 Type 2 diabetes mellitus without complications; Z79.84 Long term (current) use of oral hypoglycemic drugs; J44.9 Chronic obstructive pulmonary disease, unspecified
CPT/HCPCS: 36415; 80053; 83690; 84484; 85025; 93005; 99282; 99284

== ENCOUNTER 2021-11-03 10:10 | Outpatient (CLI) | payer MEDICARE, MEDICAID ==
--- NOTE | 2021-11-03 16:23 | Ultrasound Report ---
PROCEDURE: Pelvic w/Transvaginal INDICATIONS: ABD PAIN TECHNIQUE: Real-time scanning was performed of the pelvic organs, with image documentation. Additional endovagi nal scanning was necessary due to incomplete visualization of the adnexal and endometrial structures by transabdominal scanning. COMPARISON: None. FINDINGS: Limited scanning through the kidneys shows no hydronephrosis. No pathologic free abdominal or pelvic fluid. Uterus: Uterus is surgically absent. No gross abnormality is seen in vaginal cuff region. Ovaries: Ovaries are not visualized on this study. No gross abnormality is seen in bilateral adnexa. Other: No free pelvic fluid. IMPRESSION: 1. Prior hysterectomy. Bilateral ovaries are not visualized on this study. No gross abnormality is se en in pelvis. Reviewed by: Mike Celis MD on 11/03/2021 4:22 PM PDT Approved by: Mike Celis MD on 11/03/2021 4:22 PM PDT Station ID: [id number]
== END 2021-11-03 10:11 | disposition home or self-care (01) ==
LOC: DI 10:10
PROVIDERS: ATTEND Nurse Practitioner
DX: R10.9 Unspecified abdominal pain (principal); Z90.710 Acquired absence of both cervix and uterus

== ENCOUNTER 2021-11-21 09:38 | Outpatient (CLI) | payer MEDICARE, MEDICAID ==
[2021-11-21 12:21] LABS: THYROID STIMULATING HORMONE 1.55 uIU/mL (0.34-5.60)
[2021-11-21 12:49] LABS: FOLLICLE STIMULATING HORMONE 13.83 mIU/mL
== END 2021-11-21 09:39 | disposition home or self-care (01) ==
LOC: LAB.N 09:38
PROVIDERS: ATTEND Family Medicine
DX: N95.1 Menopausal and female climacteric states (principal); F41.9 Anxiety disorder, unspecified; R25.3 Fasciculation
CPT/HCPCS: 36415; 83001; 84443

== ENCOUNTER 2021-12-06 07:52 | Outpatient (CLI) | payer MEDICARE, MEDICAID | END 2021-12-06 07:53 | disposition home or self-care (01) | LOC: DI 07:52 | PROVIDERS: ATTEND Family Medicine | DX: R07.9 Chest pain, unspecified (principal) | CPT/HCPCS: 93306 ==

== ENCOUNTER 2022-02-11 07:43 | Emergency (ER) | payer MEDICARE, MEDICAID ==
--- OUTSIDE RECORDS SUMMARY | 2022-02-11 07:59 | EXTERNAL MEDICAL SUMMARY RPT | Continuity of Care Document ---
:1975 Author Organization [facility] Address [address] [place] [address] Phone Allergies No information. Encounters No information. Functional Status No information. Immunizations No information. Medications No information. Problems No information. Procedures No information. Results/Labs test date author facility value unit interpret ation Result panel 1 (unknown) (no (unknown) (unknown) (no value) (units (unk nown) date) unknown) (unknown) (no (unknown) (unknown) (category b / (units ( unknown) date) unknown) (unknown) (no (unknown) (unknown) [id number] (units (unkno wn) date) unknown) (unknown) (no (unknown) (unknown) 02/07/22 (units (unkno wn) date) unknown) (unknown) (no (unknown) (unknown) 06/25/2020 (units (unkn own) date) unknown) (unknown) (no (unknown) (unknown) [address] [place] [address] (units (unknown) date) unknown) (unknown) (no (unknown) (unknown) 15% of breast (units ( unknown) date) malignancies will unknown) not be visualized mammographically. In the (unknown) (no (unknown) (unknown) 07/20/2021 (units (unkno wn) date) unknown) (unknown) (no (unknown) (unknown) 25%-50% glandular (units (unknown) date) tissue). unknown) (unknown) (no (unknown) (unknown) 5 o'clock middle (units (unknown) date) depth. This is not unknown) seen in additional views. This is less (unknown) (no (unknown) (unknown) 6.0% and her 10 (units (unknown) date) year risk is 1.3%. unknown) According to the ACR, ACS, and NCCN (unknown) (no (unknown) (unknown) A follow-up left (units (unknown) date) ultrasound in 6 unknown) months is recommended to demonstrate (unknown) (no (unknown) (unknown) ACR BI-RADS (units (un known) date) Category 0: unknown) Incomplete [id number] (unknown) (no (unknown) (unknown) Accession Number: (units (unknown) date) [id number] unknown) (unknown) (no (unknown) (unknown) Accession Number: (units (unknown) date) [id number] unknown) (unknown) (no (unknown) (unknown) Age/Sex: 46 / F (units (unknown) date) Date of Service: unknown) (unknown) (no (unknown) (unknown) [place], [place] (units ( unknown) date) [id number] unknown) (unknown) (no (unknown) (unknown) Approximately (units ( unknown) date) unknown) (unknown) (no (unknown) (unknown) Based on the (units (u nknown) date) Jaquan Nava model unknown) (a risk assessment model) the patient's (unknown) (no (unknown) (unknown) CLINICAL: 6 month (units (unknown) date) follow-up of unknown) cysts. (unknown) (no (unknown) (unknown) CLINICAL: Short (units (unknown) date) term follow up. unknown) (unknown) (no (unknown) (unknown) Color flow (units (unk nown) date) ultrasound of the unknown) left breast 4 o'clock region was performed. Win (unknown) (no (unknown) (unknown) Comparison is (units ( unknown) date) made to exams unknown) dated: 07/20/2021 mammogram, 06/28/2021 mammogram, (unknown) (no (unknown) (unknown) Comparison is (units ( unknown) date) made to exams unknown) dated: 02/07/2022 mammogram, 07/20/2021 ultrasound, (unknown) (no (unknown) (unknown) : 1975 (units (unknown) date) Acct:[id number] unknown) (unknown) (no (unknown) (unknown) Electronically (units (unknown) date) Signed By: Viviane haynes) Laura Del Cid M.D. (unknown) (no (unknown) (unknown) Findings and (units (u nknown) date) recommendations unknown) were conveyed to the patient at time of exam. (unknown) (no (unknown) (unknown) Health. (units (unkno wn) date) unknown) (unknown) (no (unknown) (unknown) IMPRESSION: (units (un known) date) INCOMPLETE: NEEDS unknown) ADDITIONAL IMAGING EVALUATION (unknown) (no (unknown) (unknown) IMPRESSION: (units (un known) date) PROBABLY BENIGN unknown) (unknown) (no (unknown) (unknown) [facility] (units (unknown) date) unknown) (unknown) (no (unknown) (unknown) [place] (units (unkno wn) date) unknown) (unknown) (no (unknown) (unknown) LIMITED (units (unkno wn) date) ULTRASOUND OF LEFT unknown) BREAST: 02/07/2022 (unknown) (no (unknown) (unknown) Loc: MAMMO (units (unk nown) date) unknown) (unknown) (no (unknown) (unknown) Mammography (units (un known) date) Report unknown) (unknown) (no (unknown) (unknown) NOTE: For (units (unkn own) date) mammograms, a unknown) report in lay terms will be sent to the patient. (unknown) (no (unknown) (unknown) No other (units (unkno wn) date) significant masses unknown) or calcifications are seen in the breast. (unknown) (no (unknown) (unknown) Ordering (units (unkno wn) date) Provider: unknown) Meena Tejada P.A-C (unknown) (no (unknown) (unknown) Patient: (units (unkno wn) date) Jane Bentley M unknown) MR#: [id number] (unknown) (no (unknown) (unknown) Procedure: MM (units ( unknown) date) diagnostic mammo unknown) unilat LT (unknown) (no (unknown) (unknown) Procedure: US (units ( unknown) date) breast LT limited unknown) (unknown) (no (unknown) (unknown) Signed (units (unkno wn) date) unknown) (unknown) (no (unknown) (unknown) The 1.4 cm (units (unk nown) date) irregular area of unknown) fibrocystic tissue in the left breast is less (unknown) (no (unknown) (unknown) The equal density (units (unknown) date) focal asymmetry in unknown) the left breast is less prominent. An (unknown) (no (unknown) (unknown) The patient will (units (unknown) date) be due for unknown) bilateral mammograms at that same visit. (unknown) (no (unknown) (unknown) There are (units (unkn own) date) scattered areas of unknown) fibroglandular density in the left breast (unknown) (no (unknown) (unknown) There is a (units (unk nown) date) relatively stable unknown) to less prominent 1.4 cm x 0.2 cm x 0.2 cm (unknown) (no (unknown) (unknown) There is an equal (units (unknown) date) density focal unknown) asymmetry with an indistinct margin in the left (unknown) (no (unknown) (unknown) This exam was (units ( unknown) date) interpreted at unknown) Station ID: [id number]. (unknown) (no (unknown) (unknown) UNILATERAL LEFT (units (unknown) date) DIGITAL DIAGNOSTIC unknown) MAMMOGRAM 3D/2D: 02/07/2022 (unknown) (no (unknown) (unknown) Ultrasound (units (unk n) date) BI-RADS: 3 unknown) Probably benign (unknown) (no (unknown) (unknown) Ultrasound Report (units (unknown) date) unknown) (unknown) (no (unknown) (unknown) a differential (units (unknown) date) diagnosis of unknown) ductal ectasia, clustered cysts or fibrocystic (unknown) (no (unknown) (unknown) a palpable breast (units (unknown) date) mass, a negative unknown) mammogram must not discourage biopsy of a (unknown) (no (unknown) (unknown) and has become (units (unknown) date) less prominent in unknown) the anti-radial direction. Color flow imaging (unknown) (no (unknown) (unknown) annual breast MRI (units (unknown) date) exam along with unknown) mammogram is recommended if the patient's (unknown) (no (unknown) (unknown) breast at (units (unkn own) date) unknown) (unknown) (no (unknown) (unknown) change and is (units ( unknown) date) unknown) (unknown) (no (unknown) (unknown) clinically (units (unk nown) date) unknown) (unknown) (no (unknown) (unknown) demonstrates that (units (unknown) date) there is no unknown) vascularity present. (unknown) (no (unknown) (unknown) fibrocystic (units (un known) date) tissue in the left unknown) breast at 4 o'clock middle depth 9 cm from the (unknown) (no (unknown) (unknown) following (units (unkn own) date) unknown) (unknown) (no (unknown) (unknown) guidelines, an (units (unknown) date) unknown) (unknown) (no (unknown) (unknown) images of the (units ( unknown) date) real-time unknown) examination were reviewed. (unknown) (no (unknown) (unknown) irregular area of (units (unknown) date) unknown) (unknown) (no (unknown) (unknown) is 20% or (units (unkn own) date) greater. unknown) (unknown) (no (unknown) (unknown) krg/:02/07/2022 (units (unknown) date) 09:16:22 unknown) (unknown) (no (unknown) (unknown) krg/:02/07/2022 (units (unknown) date) 09:46:27 unknown) (unknown) (no (unknown) (unknown) letter sent: (units (u nknown) date) Followup unknown) Recommended (unknown) (no (unknown) (unknown) lifetime risk is (units (unknown) date) unknown) (unknown) (no (unknown) (unknown) lifetime risk (units ( unknown) date) unknown) (unknown) (no (unknown) (unknown) mammogram, (units (unk nown) date) 06/28/2021 unknown) mammogram, 06/25/2020 ultrasound, and 06/25/2020 mammogram (unknown) (no (unknown) (unknown) mammogram, and (units (unknown) date) 06/18/2019 mammogram unknown) - [facility]. (unknown) (no (unknown) (unknown) mammography (units (un known) date) unknown) (unknown) (no (unknown) (unknown) management of (units ( unknown) date) unknown) (unknown) (no (unknown) (unknown) nipple with (units (un known) date) unknown) (unknown) (no (unknown) (unknown) probably benign. (units (unknown) date) unknown) (unknown) (no (unknown) (unknown) prominent, has (units (unknown) date) unknown) (unknown) (no (unknown) (unknown) prominent. (units (unk nown) date) unknown) (unknown) (no (unknown) (unknown) recommended to (units (unknown) date) ensure decreasing unknown) prominence. This was performed immediately (unknown) (no (unknown) (unknown) scale (units (unkno wn) date) unknown) (unknown) (no (unknown) (unknown) stability. (units (unk nown) date) unknown) (unknown) (no (unknown) (unknown) suspicious (units (unk nown) date) lesion. unknown) (unknown) (no (unknown) (unknown) the long axis (units ( unknown) date) parallel to the unknown) skin. This correlates larger than estimated on (unknown) (no (unknown) (unknown) this exam. (units (unk nown) date) unknown) (unknown) (no (unknown) (unknown) ultrasound is (units ( unknown) date) unknown) Social History No information. Vital Signs No information.
[2022-02-11 08:40] LABS: BASOPHILS # (AUTO) 0.1 10^3/uL (0.0-0.1); BASOPHILS % (AUTO) 0.6 %; EOSINOPHILS # (AUTO) 0.3 10^3/uL (0.0-0.7); EOSINOPHILS % (AUTO) 2.9 %; HCT - HEMATOCRIT 42.6 % (37.0-47.0); HGB - HEMOGLOBIN 13.5 g/dL (12.0-16.0); LYMPHOCYTES # (AUTO) 1.9 10^3/uL (1.5-3.5); LYMPHOCYTES % (AUTO) 22.2 %; MEAN CORPUSCULAR HEMOGLOBIN 27.8 pg (27.0-31.0); MEAN CORPUSCULAR HGB CONC 31.7 g/dL (32.0-36.0); MEAN CORPUSCULAR VOLUME 87.7 fL (81.0-99.0); MEAN PLATELET VOLUME 9.8 fL (7.9-10.8); MONOCYTES # (AUTO) 0.3 10^3/uL (0.0-1.0); MONOCYTES % (AUTO) 3.9 %; NEUTROPHILS % (AUTO) 69.8 %; PLT - PLATELET COUNT 353 10^3/uL (130-450); RED BLOOD COUNT 4.86 10^6/uL (4.20-5.40); RED CELL DISTRIBUTION WIDTH 12.7 % (12.0-15.0); WHITE BLOOD COUNT 8.6 x10^3/uL (4.8-10.8)
[2022-02-11 08:54] LABS: ALBUMIN 3.6 g/dL (3.2-5.5); ALBUMIN/GLOBULIN RATIO 0.8 (1.0-2.2); ALKALINE PHOSPHATASE 61 IU/L (42-121); ALT ALANINE AMINOTRANSFERASE 15 IU/L (10-60); AST ASPARTATE AMINOTRANSFERASE 18 IU/L (10-42); BILIRUBIN,TOTAL 0.5 mg/dL (0.2-1.0); BUN - BLOOD UREA NITROGEN 22 mg/dL (6-20); CALCIUM 9.8 mg/dL (8.5-10.3); CARBON DIOXIDE - CO2 28 mmol/L (21-32); CHLORIDE 99 mmol/L (101-111); GFR - MDRD 59 (>89); GLUCOSE 211 mg/dL (70-100); MAGNESIUM 1.8 mg/dL (1.7-2.8); PHOSPHORUS 3.3 mg/dL (2.5-4.6); SODIUM 137 mmol/L (135-145); TOTAL PROTEIN 7.9 g/dL (6.7-8.2)
[2022-02-11 08:56] LABS: KETONES, SERUM (ACETEST) NEGATIVE (NEGATIVE)
[2022-02-11 08:59] LABS: VBG BASE EXCESS 2.8 mmol/L (-2 - +2); VBG HCO3 28.6 mmol/L (23-28); VBG OXYGEN SATURATION 77.5 % (60-80); VBG PCO2 48.3 mmHg (41-51); VBG PH 7.39 (7.31-7.41); VBG PO2 41.1 mmHg (25-47); VBG TOTAL CO2 30.1 mmol/L (24-29)
--- NOTE | 2022-02-11 09:01 | ED Physician Documentation ---
History of Present Illness - Stated complaint Stated Complaint: RT TOE PX/LEG SWELLING - Chief complaint Chief Complaint: General - History obtained from History obtained from: Patient, Family - History of Present Illness Pain level max: 2 Pain level now: 1 - Additonal information Additional information: Patient is a 46-year-old female who presents to the emergency department with ongoing infection in her left foot, has an ulceration at the fourth/fifth MTP joint. This is been ongoing for several weeks. She is scheduled for surgery in about 3 weeks. The plan is to amputate this portion of her foot. She states increasing swelling to her bilateral feet. No difficulty breathing. No chest pain. No increased redness or drainage from the wound. Nothing makes it better or worse. No calf pain. Review of Systems Constitutional: denies: Fever, Chills Nose: denies: Rhinorrhea / runny nose, Congestion Respiratory: denies: Cough GI: denies: Abdominal Pain, Nausea, Vomiting, Diarrhea Skin: denies: Rash Musculoskeletal: denies: Neck pain, Back pain Neurologic: denies: Headache PD PAST MEDICAL HISTORY - Past Medical History Cardiovascular: None, Murmur Respiratory: COPD Neuro: Headaches Endocrine/Autoimmune: Type 2 diabetes GI: None DRAWER IN PLAIN LOOM: None : None HEENT: None Psych: Bipolar disorder, Panic attacks Musculoskeletal: Osteoarthritis, Chronic back pain Derm: None - Past Surgical History Past Surgical History: Yes General: Other Ortho: Other /DRAWER IN PLAIN LOOM: Hysterectomy, Other - Present Medications Home Medications: Ambulatory Orders Medication Instructions Recorded Confirmed ARIPiprazole [Abilify] 10 mg PO QPM 05/13/13 11/02/21 Pregabalin [Lyrica] 150 mg PO DAILY 08/28/13 11/02/21 Albuterol Sulf [Ventolin Hfa 1 puffs INH Q4HR 12/11/20 11/02/21 Inhaler] Fluoxetine HCl [Prozac] 80 mg PO DAILY 12/11/20 11/02/21 Clonidine HCl [Clonidine HCl ER] 0.1 mg PO QPM 12/29/20 11/02/21 Metformin HCl [Fortamet] 500 mg PO DAILY 12/29/20 01/14/21 Ibuprofen [Motrin] 800 mg PO Q8H PRN #30 tablet 11/02/21 Ondansetron Odt [Zofran] 4 mg TL Q6H PRN #10 tablet 11/02/21 Pregabalin [Lyrica] 300 mg PO DAILY PM 11/02/21 11/02/21 cephALEXin [Keflex] 500 mg PO Q6H #20 cap 01/29/22 Furosemide [Lasix] 40 mg PO DAILY #7 tablet 02/11/22 cephALEXin [Keflex] 500 mg PO Q6H #28 cap 02/11/22 - Allergies Allergies/Adverse Reactions: Allergies Allergy/AdvReac Type Severity Reaction Status Date / Time oxycodone Allergy Unknown Verified 01/29/22 06:35 oxycodone HCl * Allergy Unknown Verified 01/29/22 06:35 [From Percocet] codeine [Codeine] AdvReac Severe Rash Verified 01/29/22 06:35 - Social History Does the pt smoke?: Yes Smoking Status: Former smoker Does the pt drink ETOH?: No Does the pt have substance abuse?: Yes - Immunizations Immunizations are current?: Yes - POLST Patient has POLST: No PD ED PE NORMAL - Vitals Vital signs reviewed: Yes - General General: Alert and oriented X 3, No acute distress - HEENT HEENT: Moist mucous membranes - Neck Neck: Supple, no meningeal sign - Cardiac Cardiac: RRR, Strong equal pulses - Respiratory Respiratory: No respiratory distress, Clear bilaterally - Derm Derm: Warm and dry - Extremities Extremities: Other (Small ulceration to the plantar aspect of the right foot, near the fourth/fifth MTP joint. No drainage. Mild swelling. There is pitting edema to the bilateral lower extremities, 1+ bilateral pitting on both feet and lower legs. Neurovascular intact.) - Neuro Neuro: Alert and oriented X 3 - Psych Psych: Normal mood, Normal affect Results - Vitals Vitals: Vital Signs - 24 hr 02/11/22 02/11/22 07:50 10:07 Temperature 36.8 C 36.6 C Heart Rate 94 82 Respiratory 18 16 Rate Blood Pressure 161/87 H 143/88 H O2 Saturation 94 96 Oxygen O2 Source Room air - Labs Labs: Microbiology 02/11/22 08:45 Wound Culture - Preliminary Foot - Right Laboratory Tests 02/11/22 02/11/22 02/11/22 08:33 08:33 08:33 WBC 8.6 RBC 4.86 Hgb 13.5 Hct 42.6 MCV 87.7 MCH 27.8 MCHC 31.7 L RDW 12.7 Plt Count 353 MPV 9.8 Neut # (Auto) 6.0 Lymph # (Auto) 1.9 [place]vert # (Auto) 0.3 Eos # (Auto) 0.3 Baso # (Auto) 0.1 Absolute Nucleated RBC 0.00 Nucleated RBC % 0.0 VBG pH 7.390 VBG pCO2 48.3 VBG pO2 41.1 VBG HCO3 28.6 H VBG Total CO2 30.1 H VBG O2 Saturation 77.5 VBG Base Excess 2.8 H Sodium 137 Potassium 4.0 Chloride 99 L Carbon Dioxide 28 Anion Gap 10.0 BUN 22 H Creatinine 1.0 Estimated GFR (MDRD) 59 L Glucose 211 H Calcium 9.8 Phosphorus 3.3 Magnesium 1.8 Total Bilirubin 0.5 AST 18 ALT 15 Alkaline Phosphatase 61 Total Protein 7.9 Albumin 3.6 Globulin 4.3 H Albumin/Globulin Ratio 0.8 L Serum Ketones NEGATIVE PD MEDICAL DECISION MAKING - ED course Complexity details: reviewed results, re-evaluated patient, considered differential, d/w patient, d/w family ED course: 46-year-old female with a plantar wound on the foot. We will place her on antibiotics. She also has bilateral pitting edema in her legs, we will start her on a diuretic. Her blood sugar is higher than usual, she will monitor this at home. This is likely secondary to the infection. We will have her follow-up with orthopedics this week to determine if they would like to perform surgery any sooner than several weeks from now. Patient is well-appearing, nontoxic. No hypoxia. No respiratory distress. Patient and family counseled regarding signs and symptoms for which I believe and urgent re-evaluation would be necessary. Patient with good understanding of and agreement to plan and is comfortable going home at this time This document was made in part using voice recognition software. While efforts are made to proofread this document, sound alike and grammatical errors may occur. Departure - Departure Disposition: 01 Home, Self Care Clinical Impression: Cellulitis of foot associated with diabetes mellitus, Peripheral edema Foot osteomyelitis, left Qualifiers: Osteomyelitis type: unspecified type Qualified Code(s): M86.9 - Osteomyelitis, unspecified Condition: Good Instructions: ED Infec Skin Cellulitis Follow-Up: Augie Mary MD [Provider Admit Priv/Credential] - Prescriptions: cephALEXin [Keflex] 500 mg PO Q6H #28 cap Furosemide [Lasix] 40 mg PO DAILY #7 tablet Comments: Your medications were sent to [facility] in [place] Please take all medications as prescribed. A wound culture was sent, we will call you if we need to change the antibiotics. Please return if you worsen. Please follow-up with Dr. Mary this coming week for further care. Discharge Date/Time: 02/11/22 10:10
[2022-02-11] MEDS ORDERED: FUROSEMIDE 20 MG TABLET PO STA (09:46)
[2022-02-11] MEDS ORDERED: cephALEXin 250 MG CAPSULE PO STA (09:46)
[2022-02-11 10:09] VITALS: BP 143/88
== END 2022-02-11 10:10 | disposition home or self-care (01) ==
LOC: ED 07:43
DX: E11.628 Type 2 diabetes mellitus with other skin complications (principal); L03.116 Cellulitis of left lower limb; M86.9 Osteomyelitis, unspecified; Z79.84 Long term (current) use of oral hypoglycemic drugs; R60.0 Localized edema; F31.9 Bipolar disorder, unspecified; Z87.891 Personal history of nicotine dependence; J44.9 Chronic obstructive pulmonary disease, unspecified
CPT/HCPCS: 36415; 80053; 82009; 82803; 83735; 84100; 85025; 87070; 87181; 87205; 99283; 99284

== ENCOUNTER 2022-03-02 08:42 | Outpatient (CLI) | payer MEDICARE, MEDICAID | END 2022-03-02 08:43 | disposition home or self-care (01) | LOC: NS 08:42 | PROVIDERS: ATTEND Physician Assistant | DX: Z71.3 Dietary counseling and surveillance (principal); E11.9 Type 2 diabetes mellitus without complications; E78.2 Mixed hyperlipidemia | CPT/HCPCS: 97802 ==

== ENCOUNTER 2022-03-06 08:00 | Outpatient (CLI) | payer MEDICARE, MEDICAID ==
--- NOTE | 2022-03-06 11:08 | XRAY Report ---
PROCEDURE: Foot 3 View RT INDICATIONS: RIGHT FOOT ULCER TECHNIQUE: 3 views of the foot were acquired. COMPARISON: 01/29/2022 FINDINGS: Bones: Normal bone mineralization without evidence of lytic lesion. No fracture or subluxation Soft tissues: Generalized soft tissue swelling noted. There is soft tissue air is noted fifth metacar pal phalangeal joint dorsally. No radiopaque foreign body. Vascular small vessel calcification presen t. IMPRESSION: 1. Dorsal soft tissue air and swelling consistent with gas-forming infection. No osseous or lytic les ion. Consider follow-up MRI or bone scan to evaluate for osteomyelitis Reviewed by: Walter Watson MD on 03/06/2022 10:06 AM NICKY Approved by: Walter Watson MD on 03/06/2022 10:06 AM NICKY Station ID: [id number]
== END 2022-03-06 23:59 | disposition home or self-care (01) ==
LOC: DI.WOS 08:00
PROVIDERS: ATTEND Orthopaedic Surgery
DX: E11.621 Type 2 diabetes mellitus with foot ulcer (principal); L97.519 Non-pressure chronic ulcer of other part of right foot with unspecified severity

== ENCOUNTER 2022-03-07 08:00 | Outpatient (CLI) | payer MEDICARE, MEDICAID | END 2022-03-07 23:59 | disposition home or self-care (01) | LOC: LAB 08:00 | PROVIDERS: ATTEND Orthopaedic Surgery | DX: E11.621 Type 2 diabetes mellitus with foot ulcer (principal) | CPT/HCPCS: 87070; 87077; 87181; 87205 ==

== ENCOUNTER 2022-03-15 08:11 | Day surgery (SDC) | payer MEDICARE, MEDICAID ==
[~2022-03-15 08:11] MED LIST: ACETAMINOPHEN 500 MG TABLET PO ONE; CEFAZOLIN 2G/50ML 0.9% NS 2 GM/50 ML BAG IV ONE
[2022-03-15] MEDS ORDERED: VANCOMYCIN INJ 1 GM in SODIUM CHLORIDE 0.9% 250 ML IV ONE (09:00)
[2022-03-15] MEDS ORDERED: LACTATED RINGERS 1,000 ML IV ONE ×2 (09:15→10:56)
[2022-03-15] MEDS ORDERED: BUPIVACAINE 0.5% PF 30 ML VIAL ONE (09:18)
[2022-03-15] MEDS ORDERED: BACITRACIN ZINC OINT 1 PACKET TOP ONE ×2 (09:18→10:16)
[2022-03-15] MEDS ORDERED: BUPIVACAINE 0.25% PF 10 ML VIAL ONE (09:18)
[2022-03-15] MEDS ORDERED: LIDOCAINE MPF 2%-EPI 1:200000 20 ML VIAL ONE (09:18)
--- NOTE | 2022-03-15 09:34 | ANESTHESIA ---
Pre-Anesthesia VS, & Labs - Diagnosis Diabetic foot ulcer, R foot schilles contracture - Procedure R 5th digit amoutation, R achilles percutaneous lengthening Vital Signs: Temp Pulse Resp BP Pulse Ox O2 Flow Rate 36.7 C 88 17 140/85 H 97 03/15/22 09:06 03/15/22 09:06 03/15/22 09:06 03/15/22 09:06 03/15/22 09:06 Height: 5 ft 7 in Weight (kg): 116 kg Body Mass Index: 40.0 BMI Classification: Morbidly Obese - NPO >8 hours - Is Patient ?: No - Lab Results Lab results reviewed: Yes Home Medications and Allergies Home Medications: Ambulatory Orders Amox/Clav 875/125 [Augmentin 875/125 Tab] 1 tablet PO Q12H 03/14/22 Atorvastatin [Lipitor] 20 mg PO DAILY 03/14/22 Furosemide [Lasix] 20 mg PO DAILY 03/14/22 HYDROcodone/ACET 10/325 [[place] 10 mg/325 mg] 1 tablet PO Q8H PRN 03/14/22 hydrOXYzine HCL [Hydroxyzine HCl] 50 mg PO BID PRN 03/14/22 Active Medications Vancomycin HCl 1 gm/ Sodium (Chloride) 250 mls @ 167 mls/hr IV ONCE ONE Stop: 03/15/22 10:29 ARIPiprazole [Abilify] 5 - 10 mg PO BID 05/13/13 Pregabalin [Lyrica] 150 mg PO TID 08/28/13 Albuterol Sulf [Ventolin Hfa Inhaler] 1 puffs INH Q4HR PRN 12/11/20 Fluoxetine HCl [Prozac] 80 mg PO DAILY 12/11/20 Clonidine HCl [Clonidine HCl ER] 0.1 mg PO QPM 12/29/20 Metformin HCl [Fortamet] 500 mg PO DAILY 12/29/20 Amox/Clav 875/125 [Augmentin 875/125 Tab] 1 tablet PO Q12H 03/14/22 Atorvastatin [Lipitor] 20 mg PO DAILY 03/14/22 Furosemide [Lasix] 20 mg PO DAILY 03/14/22 HYDROcodone/ACET 10/325 [[place] 10 mg/325 mg] 1 tablet PO Q8H PRN 03/14/22 hydrOXYzine HCL [Hydroxyzine HCl] 50 mg PO BID PRN 03/14/22 Allergies/Adverse Reactions: Allergies Allergy/AdvReac Type Severity Reaction Status Date / Time oxycodone Allergy Unknown Verified 01/29/22 06:35 oxycodone HCl * Allergy Unknown Verified 01/29/22 06:35 [From Percocet] ziprasidone [From Geodon] Allergy Hallucinati Verified 03/14/22 09:55 ons codeine [Codeine] AdvReac Severe Rash Verified 01/29/22 06:35 Anes History & Medical History - Anesthetic History Anesthesia Complications: reports: No previous complications Family history of Anesthesia Complications: Denies Family history of Malignant Hyperthermia: Denies - Medical History Cardiovascular: reports: High cholesterol, Angina, Murmur Pulmonary: reports: COPD Gastrointestinal: reports: Ulcerative colitis Urinary: reports: Incontinence Neuro: reports: Headaches Musculoskeletal: reports: Chronic back pain, Other Endocrine/Autoimmune: reports: Type 2 diabetes Skin: reports: None Smoking Status: Former smoker - Surgical History General: reports: Colonoscopy, Other Urologic: reports: Bladder surgery Gynecologic: reports: Hysterectomy, Other Orthopedic: reports: Spine surgery, Other Exam General: Alert, Oriented x3, Cooperative Dental: WNL Mouth Openin Fingerbreadth Neck Mobility: Reduced Mallampati classification: II Thyromental Distance: 4-6 cm Respiratory: Lungs clear, Normal breath sounds, No respiratory distress Cardiovascular: Regular rate Neurological: Normal speech Mental/Cognitive Status: Alert/Oriented X3, Normal for patient Cognitive Status: Within normal limits Plan Anesthesia Type: MAC Consent for Procedure(s) Verified and Reviewed: Yes Code Status: Attempt Resuscitation ASA classification: 2-Mild systemic disease Is this case an emergency?: No
[2022-03-15] MEDS ORDERED: PROPOFOL 500 MG/50 ML 500 MG/50 ML VIAL ONE (09:44)
[2022-03-15] MEDS ORDERED: MIDAZOLAM 2 MG/2 ML VIAL ONE (09:51)
[2022-03-15] MEDS ORDERED: fentaNYL 100 MCG/2 ML VIAL ONE (09:51)
[2022-03-15] MEDS ORDERED: BUPIVACAINE 0.5% PF 30 ML VIAL INFIL ONE (10:15)
[2022-03-15] MEDS ORDERED: VANCOMYCIN 1 GM VIAL MC ONE (10:27)
[2022-03-15] MEDS ORDERED: VANCOMYCIN 1 GM VIAL ONE (10:40)
--- NOTE | 2022-03-15 10:56 | OPERATIVE REPORT ---
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 with right fifth plantar metatar Procedure Performed: Amputation right fifth toe at metatarsal phalangeal joint and percutaneous tendo Achilles lengthening right ankle Post Op Diagnosis: Same as preoperative diagnosis - Procedure Note Primary Surgeon: Augie Mary MD Secondary Surgeon: Saleem Gilmore Anesthesia Provider: Trevor Calvillo CRNA Anesthesia Technique: Local, Moderate sedation Pathology: Fifth toe sent to pathology after amputation, right foot Estimated Blood Loss (mL): 5 Indications: This is a 46-year-old woman Samxooe-Qlzfw-Rpmch affecting both feet and diabetes; she has peripheral neuropathy. Her current problem with her right foot is related to a plantar fifth metatarsal head ulcer, refractory to conservative treatment including diabetic casting. She has had recent superficial infection involving the ulcer, has responded to Augmentin nicely even though her culture was positive for Staphylococcus resistant to methicillin. She has hindfoot varus. She has had previous hindfoot surgery at [facility] many years ago, most likely an attempt to create a plantigrade foot. She has a tight tendo Achilles on exam. Her ulcer is small measuring about 5 x 1 mm with surrounding mild callosity, localized to the fifth metatarsal head Right foot but does not directly communicate with the head. She has good circulation to her foot. Her routine radiographs do not show any sign of abnormality to the fifth metatarsal head; no sign of radiographic osteomyelitis to fifth metatarsal head right foot.And the goal was tried to obtain ulcer healing by decreasing forefoot pressure associated with contracture of both fifth toe and tendo Achilles. However, she may need to have a bigger procedure in the future to try to improve her foot to a more plantigrade position. This is not being done today because of the ulcer, recent infection and also because simpler procedure is being done today may be adequate in conjunction with bracing. Findings: There is no sign of clinical osteomyelitis to the fifth metatarsal head. The contractures of the tendo Achilles and the claw toe deformity that was fixed to the right fifth toe were identified. Complications: None - Other Other Information/Narrative: The patient was brought to the operating room and she was placed in the supine position. The right lower extremity was prepped and draped in a sterile manner in the usual fashion. A timeout procedure was performed by the entire operating room team and all were in agreement. Half percent plain Marcaine , 8 cc,was injected about the fifth toe to create a distal metatarsal block to the right fifth toe. An Esmarch was wrapped around the foot and extended to the calf where was secured with 3 circumferential wraps over a padded stockinette and secured. A racquet shaped incision was placed over the fifth toe with the dorsal longitudinal arm. Incision was carried directly down to bone without creating excessive flaps. The extensor tendon, collateral ligaments and plantar plate was incised at the metatarsal phalangeal joint, removing the toe. The metatarsal head was identified. The articular cartilage of the metatarsal head was intact. A small K wire was used to probe the metaphysis of the metatarsal head; the head was intact, no sign of clinical infection to bone. The wound was thoroughly irrigated with normal saline. Vancomycin powder was inserted into the wound. The skin was closed with a running 4-0 nylon suture after the rubber bandage tourniquet at the calf was released. There was good return of circulation to the amputation site. There is no sign of any infection at the amputation site. Tendo Achilles lengthening was performed. This was performed with the ankle rotated externally and placed in neutral dorsiflexion. 3 small incisions were made with a #11 blade, entering the Achilles tendon of the right ankle vertically and then rotating the blade 90 degrees, opposite directions for each of the 3 incisions. This allowed for nice lengthening of the tendo Achilles so that the foot could be brought into at least 10 degrees of ankle dorsiflexion. Xeroform was applied to the incisions, sterile gauze and a well-padded short leg posterior fiberglass splint with ankle held in neutral dorsiflexion. She received Ancef 2 g and vancomycin 1 g intravenously prior to the incision. She tolerated the procedure well. A physician assistant professor surgical technology was medically necessary to help with prepping and draping, positioning, protection of vital structures, assistance during the procedure including wound closure, dressing and/or splinting.
--- NOTE | 2022-03-15 10:58 | ANESTHESIA POST OP EVALUATION ---
Anesthesia Post Eval - Post Anesthesia Eval Vitals: Last Vital Signs Temp 36.7 C 03/15/22 09:06 Pulse 88 03/15/22 09:06 Resp 17 03/15/22 09:06 BP 140/85 H 03/15/22 09:06 Pulse Ox 97 03/15/22 09:06 O2 Flow Rate CV Function Including HR & BP: Stable Pain Control: Satisfactory Nausea & Vomiting: Negative Mental Status: Baseline Respiratory Status: Airway Patent Hydration Status: Satisfactory Anesthesia Complications: None
[2022-03-15] MEDS ORDERED: CELECOXIB 100 MG CAPSULE PO PRN (11:02)
[2022-03-15] MEDS ORDERED: ACETAMINOPHEN 500 MG TABLET PO PRN (11:02)
[2022-03-15] MEDS ORDERED: oxyCODONE 5 MG TABLET PO PRN (11:02)
[2022-03-15 11:19] VITALS: BP 137/76
== END 2022-03-15 08:12 | disposition home or self-care (01) ==
LOC: SDS 08:11
PROVIDERS: ATTEND Orthopaedic Surgery
PROC: 0Y6X0Z0 Detachment at Right 5th Toe, Complete, Open Approach (ICD-10-PCS; principal; 2022-03-15 09:30)
DX: E11.621 Type 2 diabetes mellitus with foot ulcer (principal); L97.519 Non-pressure chronic ulcer of other part of right foot with unspecified severity; M67.01 Short Achilles tendon (acquired), right ankle; Q66.89 Other specified congenital deformities of feet; G60.0 Hereditary motor and sensory neuropathy; E11.42 Type 2 diabetes mellitus with diabetic polyneuropathy; E66.01 Morbid (severe) obesity due to excess calories; J44.9 Chronic obstructive pulmonary disease, unspecified; G47.30 Sleep apnea, unspecified; Z68.41 Body mass index [BMI] 40.0-44.9, adult; Z79.84 Long term (current) use of oral hypoglycemic drugs; Z87.891 Personal history of nicotine dependence
CPT/HCPCS: 27685; 28820; A9270; J0690; J3370; J7120

== ENCOUNTER 2022-04-17 08:00 | Outpatient (CLI) | payer MEDICARE, MEDICAID ==
[2022-04-17 12:17] LABS: BASOPHILS # (AUTO) 0.1 10^3/uL (0.0-0.1); BASOPHILS % (AUTO) 0.5 %; EOSINOPHILS # (AUTO) 0.2 10^3/uL (0.0-0.7); EOSINOPHILS % (AUTO) 1.8 %; HCT - HEMATOCRIT 42.4 % (37.0-47.0); HGB - HEMOGLOBIN 13.2 g/dL (12.0-16.0); LYMPHOCYTES # (AUTO) 2.1 10^3/uL (1.5-3.5); LYMPHOCYTES % (AUTO) 16.8 %; MEAN CORPUSCULAR HEMOGLOBIN 26.8 pg (27.0-31.0); MEAN CORPUSCULAR HGB CONC 31.1 g/dL (32.0-36.0); MEAN CORPUSCULAR VOLUME 86.2 fL (81.0-99.0); MEAN PLATELET VOLUME 11.2 fL (7.9-10.8); MONOCYTES # (AUTO) 0.6 10^3/uL (0.0-1.0); MONOCYTES % (AUTO) 4.4 %; NEUTROPHILS # (AUTO) 9.6 10^3/uL (1.5-6.6); NEUTROPHILS % (AUTO) 76.2 %; PLT - PLATELET COUNT 292 10^3/uL (130-450); RED BLOOD COUNT 4.92 10^6/uL (4.20-5.40); RED CELL DISTRIBUTION WIDTH 14.3 % (12.0-15.0); WHITE BLOOD COUNT 12.6 x10^3/uL (4.8-10.8)
[2022-04-17 12:58] LABS: ALBUMIN 3.9 g/dL (3.2-5.5); BILIRUBIN,TOTAL 0.3 mg/dL (0.2-1.0); TOTAL PROTEIN 7.9 g/dL (6.7-8.2)
[2022-04-17 13:24] LABS: CALCIUM 9.7 mg/dL (8.5-10.3); POTASSIUM 4.1 mmol/L (3.5-5.0)
== END 2022-04-17 23:59 | disposition home or self-care (01) ==
LOC: LAB.N 08:00
PROVIDERS: ATTEND Nurse Practitioner
DX: L03.115 Cellulitis of right lower limb (principal)
CPT/HCPCS: 36415; 80053; 85025; 87070; 87077; 87181; 87205

== ENCOUNTER 2022-04-17 08:00 | Outpatient (CLI) | payer MEDICARE, MEDICAID ==
--- NOTE | 2022-04-17 14:27 | XRAY Report ---
PROCEDURE: Foot 2 View RT INDICATIONS: CELLULITIS OF R LOWER LIMB TECHNIQUE: 2 views of the foot were acquired. COMPARISON: 03/06/2022 FINDINGS: Bones: Prior amputation of fifth toe at the level of fifth MTP joint is seen. Subtle radiolucency inv olving lateral aspect of fifth metatarsal head, erosion secondary to osteoarthritis cannot be exclude d. No acute fracture or dislocation. No other area of abnormal bony erosion is seen. No suspicious lilia ny lesions. Soft tissues: Soft tissue swelling at fifth toe amputation site is noted. No tibiotalar joint effusi on. Achilles tendon appears normal. IMPRESSION: Amputation of fifth toe at the level of fifth MTP joint with erosive changes seen in fifth metatarsal head which may represent osteomyelitis. No other area of bony erosive changes are seen. No fracture or dislocation. Soft tissue swelling over fifth toe stump. Reviewed by: Mike Celis MD on 04/17/2022 2:25 PM PST Approved by: Mike Celis MD on 04/17/2022 2:25 PM PST Station ID: [id number]
--- NOTE | 2022-04-17 14:51 | XRAY Report ---
PROCEDURE: Chest 2 View X-Ray INDICATIONS: CHEST PX TECHNIQUE: 2 views of the chest were obtained. COMPARISON: Chest x-ray 12/16/2020 FINDINGS: Cardiac mediastinal silhouette is normal in size and contour. No effusions, consolidations or pneumot horax. Osseous and soft tissue structures are unremarkable. IMPRESSION: No acute pulmonary process. Reviewed by: Rosa Levy MD on 04/17/2022 2:50 PM PST Approved by: Rosa Levy MD on 04/17/2022 2:50 PM PST Station ID: [id number]
== END 2022-04-17 23:59 | disposition home or self-care (01) ==
LOC: DI.N 08:00
PROVIDERS: ATTEND Nurse Practitioner
DX: R07.9 Chest pain, unspecified (principal); L03.115 Cellulitis of right lower limb; Z89.421 Acquired absence of other right toe(s)

== ENCOUNTER 2022-05-01 08:00 | Outpatient (CLI) | payer MEDICARE, MEDICAID | END 2022-05-01 23:59 | disposition home or self-care (01) | LOC: LAB.N 08:00 | PROVIDERS: ATTEND Physician Assistant | DX: L03.115 Cellulitis of right lower limb (principal) | CPT/HCPCS: 87070; 87181; 87205 ==

== ENCOUNTER 2022-05-01 08:00 | Outpatient (CLI) | payer MEDICARE, MEDICAID ==
--- NOTE | 2022-05-01 16:04 | XRAY Report ---
PROCEDURE: Foot 3 View RT INDICATIONS: RIGHT FOOT ULCER TECHNIQUE: 3 views of the foot were acquired. COMPARISON: 3 views of the right foot dated 04/17/2022 FINDINGS: Bones: When compared with the prior study, there is increased bone resorption and cortical thinning a t the distal aspect of the fifth metatarsal. No acute fracture or dislocation. Soft tissues: No tibiotalar joint effusion. Achilles tendon appears normal. Soft tissue swelling ov erlies the operative site. There is some soft tissue calcification present. IMPRESSION: Radiographic findings suspicious for osteomyelitis at the distal right fifth metatarsal. Reviewed by: Kat Pollock MD on 05/01/2022 4:02 PM PST Approved by: Kat Pollock MD on 05/01/2022 4:02 PM PST Station ID: [id number]
== END 2022-05-01 23:59 | disposition home or self-care (01) ==
LOC: DI.WOS 08:00
PROVIDERS: ATTEND Orthopaedic Surgery
DX: L03.115 Cellulitis of right lower limb (principal)

== ENCOUNTER 2022-05-10 07:24 | Emergency (ER) | payer MEDICARE, MEDICAID ==
[2022-05-10 07:55] LABS: BASOPHILS # (AUTO) 0.1 10^3/uL (0.0-0.1); BASOPHILS % (AUTO) 0.7 %; EOSINOPHILS # (AUTO) 0.3 10^3/uL (0.0-0.7); EOSINOPHILS % (AUTO) 3.3 %; HCT - HEMATOCRIT 42.9 % (37.0-47.0); HGB - HEMOGLOBIN 13.4 g/dL (12.0-16.0); LYMPHOCYTES # (AUTO) 2.9 10^3/uL (1.5-3.5); LYMPHOCYTES % (AUTO) 30.3 %; MEAN CORPUSCULAR HEMOGLOBIN 26.4 pg (27.0-31.0); MEAN CORPUSCULAR HGB CONC 31.2 g/dL (32.0-36.0); MEAN CORPUSCULAR VOLUME 84.6 fL (81.0-99.0); MEAN PLATELET VOLUME 10.4 fL (7.9-10.8); MONOCYTES # (AUTO) 0.4 10^3/uL (0.0-1.0); MONOCYTES % (AUTO) 3.8 %; NEUTROPHILS # (AUTO) 5.8 10^3/uL (1.5-6.6); NEUTROPHILS % (AUTO) 61.5 %; PLT - PLATELET COUNT 283 10^3/uL (130-450); RED BLOOD COUNT 5.07 10^6/uL (4.20-5.40); RED CELL DISTRIBUTION WIDTH 14.2 % (12.0-15.0); WHITE BLOOD COUNT 9.4 x10^3/uL (4.8-10.8)
[2022-05-10 08:13] LABS: ALBUMIN 3.7 g/dL (3.2-5.5); ALBUMIN/GLOBULIN RATIO 0.9 (1.0-2.2); BILIRUBIN,TOTAL 0.3 mg/dL (0.2-1.0); CALCIUM 9.7 mg/dL (8.5-10.3); CREATININE 0.9 mg/dL (0.4-1.0); MAGNESIUM 1.8 mg/dL (1.7-2.8); POTASSIUM 3.8 mmol/L (3.5-5.0)
--- NOTE | 2022-05-10 08:15 | ED Physician Documentation ---
History of Present Illness - Stated complaint Stated Complaint: HEART PALPITATIONS X 1 WK - Chief complaint Chief Complaint: Cardiac - History obtained from History obtained from: Patient - Additonal information Additional information: Patient is a 46-year-old female presenting for evaluation of palpitations that have been intermittent for the last week as well as left-sided neck pain that feels like a pressure which is been ongoing for several months. 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 The stress test was normal and she was cleared for surgery. She denies any exertional component to her pain or palpitations. She denies associated dizziness, syncope, difficulty breathing, abdominal pain, vomiting. She denies having chest pain but reports feeling a heaviness at times in her chest. Her last episode was this morning and has since resolved. 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 [employer]ENT: None : Incontinence HEENT: Chronic vision loss Psych: Depression, Bipolar disorder, Panic attacks Musculoskeletal: Chronic back pain, Other Derm: None - Past Surgical History Past Surgical History: Yes General: Colonoscopy, Other Ortho: Spine surgery, 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, Other - Present Medications Home Medications: Ambulatory Orders Medication Instructions Recorded Confirmed ARIPiprazole [Abilify] 5 - 10 mg PO BID 05/13/13 05/10/22 Pregabalin [Lyrica] 150 mg PO TID 08/28/13 05/10/22 Albuterol Sulf [Ventolin Hfa 1 puffs INH Q4HR PRN 12/11/20 05/10/22 Inhaler] Fluoxetine HCl [Prozac] 80 mg PO DAILY 12/11/20 05/10/22 Clonidine HCl [Clonidine HCl ER] 0.1 mg PO QPM 12/29/20 05/10/22 Metformin HCl [Fortamet] 500 mg PO DAILY 12/29/20 05/10/22 Amox/Clav 875/125 [Augmentin 1 tablet PO Q12H 03/14/22 05/10/22 875/125 Tab] Atorvastatin [Lipitor] 20 mg PO DAILY 03/14/22 05/10/22 Furosemide [Lasix] 20 mg PO DAILY 03/14/22 05/10/22 HYDROcodone/ACET 10/325 [Burns 10 1 tablet PO Q8H PRN 03/14/22 05/10/22 mg/325 mg] hydrOXYzine HCL [Hydroxyzine HCl] 50 mg PO BID PRN 03/14/22 05/10/22 - Allergies Allergies/Adverse Reactions: Allergies Allergy/AdvReac Type Severity Reaction Status Date / Time oxycodone Allergy Unknown Verified 05/10/22 07:33 oxycodone HCl * Allergy Unknown Verified 05/10/22 07:33 [From Percocet] ziprasidone [From Geodon] Allergy Hallucinati Verified 05/10/22 07:33 ons codeine [Codeine] AdvReac Severe Rash Verified 05/10/22 07:33 - Social History Does the pt smoke?: Yes Smoking Status: Current every day smoker Does the pt drink ETOH?: No Does the pt have substance abuse?: Yes - Immunizations Immunizations are current?: Yes - POLST Patient has POLST: No PD ED PE NORMAL - General General: Alert and oriented X 3, No acute distress, Well developed/nourished - HEENT HEENT: Atraumatic, Moist mucous membranes - Neck Neck: Supple, no meningeal sign, Other (No swelling; No tenderness) - Cardiac Cardiac: RRR, Strong equal pulses - Respiratory Respiratory: No respiratory distress, Clear bilaterally - Abdomen Abdomen: Soft, Non tender - Derm Derm: Warm and dry - Neuro Neuro: Normal speech Results - Vitals Vitals: Vital Signs - 24 hr 05/10/22 05/10/22 07:29 09:32 Temperature 36.8 C Heart Rate 93 79 Respiratory 18 17 Rate Blood Pressure 155/84 H 154/92 H O2 Saturation 98 100 Oxygen O2 Source Room air - EKG (time done) 0730 Rate: Rate (enter#) (93) Rhythm: NSR Intervals: Normal TX Ischemia: No: ST elevation c/w ischemia - Labs Labs: Laboratory Tests 05/10/22 05/10/22 05/10/22 07:35 07:35 07:35 WBC 9.4 RBC 5.07 Hgb 13.4 Hct 42.9 MCV 84.6 MCH 26.4 L MCHC 31.2 L RDW 14.2 Plt Count 283 MPV 10.4 Neut # (Auto) 5.8 Lymph # (Auto) 2.9 Harmon # (Auto) 0.4 Eos # (Auto) 0.3 Baso # (Auto) 0.1 Absolute Nucleated RBC 0.00 Nucleated RBC % 0.0 Sodium 138 Potassium 3.8 Chloride 99 L Carbon Dioxide 28 Anion Gap 11.0 BUN 17 Creatinine 0.9 Estimated GFR (MDRD) 67 L Glucose 200 H Calcium 9.7 Magnesium 1.8 Total Bilirubin 0.3 AST 18 ALT 17 Alkaline Phosphatase 82 Troponin I High Sens 2.6 Total Protein 8.0 Albumin 3.7 Globulin 4.3 H Albumin/Globulin Ratio 0.9 L TSH 05/10/22 07:35 WBC RBC Hgb Hct MCV MCH MCHC RDW Plt Count MPV Neut # (Auto) Lymph # (Auto) Harmon # (Auto) Eos # (Auto) Baso # (Auto) Absolute Nucleated RBC Nucleated RBC % Sodium Potassium Chloride Carbon Dioxide Anion Gap BUN Creatinine Estimated GFR (MDRD) Glucose Calcium Magnesium Total Bilirubin AST ALT Alkaline Phosphatase Troponin I High Sens Total Protein Albumin Globulin Albumin/Globulin Ratio TSH 1.43 PD MEDICAL DECISION MAKING - ED course Complexity details: reviewed results, re-evaluated patient, d/w patient ED course: Patient presenting for evaluation of palpitations that of been intermittent for 1 week along with neck pain that is been present for months.She has been symptom-free here. Her EKG is reassuring with a normal sinus rhythm. Her labs are also unrevealing with a normal troponin.Patient is low risk for ACS based on the heart score and her symptoms are atypical for ACS. Doubt PE or dissection as she does not really have chest pain with her symptoms. Patient counseled on need for close follow-up with her primary care doctor as well as strict return precautions for any worsening symptoms. Departure - Departure Disposition: 01 Home, Self Care Clinical Impression: Palpitations Condition: Stable Instructions: ED Palpitations Follow-Up: Meena Tejada PA-C [Primary Care Provider] - Comments: Please follow-up with your primary care doctor regarding your palpitations. You may need further testing or monitoring To determine what is causing them.Please return to the emergency department with any worsening symptoms such as chest pain, difficulty breathing or new pain. Discharge Date/Time: 05/10/22 09:39
--- NOTE | 2022-05-10 08:29 | XRAY Report ---
PROCEDURE: Chest 1 View X-Ray INDICATIONS: chest tightness TECHNIQUE: One view of the chest was acquired. COMPARISON: 04/17/2022. FINDINGS: Surgical changes and devices: None. Lungs and pleura: No pleural effusions or pneumothorax. Lungs are clear. Mediastinum: Mediastinal contours appear normal. Heart size is normal. Bones and chest wall: No suspicious bony lesions. Overlying soft tissues appear unremarkable. IMPRESSION: No evidence acute pulmonary process. Reviewed by: Miguel Nichols MD on 05/10/2022 8:28 AM PST Approved by: Miguel Nichols MD on 05/10/2022 8:28 AM PST Station ID: [id number]
[2022-05-10 09:34] VITALS: BP 154/92
== END 2022-05-10 09:39 | disposition home or self-care (01) ==
LOC: ED 07:24
DX: R00.2 Palpitations (principal); F17.200 Nicotine dependence, unspecified, uncomplicated
CPT/HCPCS: 36415; 80053; 83735; 84443; 84484; 85025; 93005; 99282; 99284

== ENCOUNTER → 2022-05-14 | Outpatient (CLI) | payer MEDICARE, MEDICAID | END | disposition EMS.NT | LOC: EMS 17:43 | DX: I10 Essential (primary) hypertension (principal) ==

== ENCOUNTER 2022-05-18 10:10 | Outpatient (CLI) | payer MEDICARE, MEDICAID ==
--- NOTE | 2022-05-18 16:26 | XRAY Report ---
PROCEDURE: Foot 3 View RT INDICATIONS: FOOT PX TECHNIQUE: 3 views of the foot were acquired. COMPARISON: X-ray foot 05/01/2022 FINDINGS: Bones: No fractures or dislocations. There is slightly progressive appearance of lucency and irregul arity at the distal aspect of the fifth metatarsal. It is noted there is amputation distally. Soft tissues: No tibiotalar joint effusion. Achilles tendon appears normal. Prominent soft tissue edema is present surrounding the fifth digit. IMPRESSION: Slightly progressive appearance of erosive change within the distal fifth metatarsal suspicious for o steomyelitis. Reviewed by: Rosa Levy MD on 05/18/2022 4:24 PM PST Approved by: Rosa Levy MD on 05/18/2022 4:24 PM PST Station ID: [id number]
== END 2022-05-18 10:11 | disposition home or self-care (01) ==
LOC: DI 10:10
PROVIDERS: ATTEND Orthopaedic Surgery
DX: L03.115 Cellulitis of right lower limb (principal); M85.871 Other specified disorders of bone density and structure, right ankle and foot

== ENCOUNTER 2022-05-25 13:47 | Outpatient (CLI) | payer MEDICARE, MEDICAID ==
--- NOTE | 2022-05-25 20:20 | XRAY Report ---
PROCEDURE: Foot 3 View RT INDICATIONS: RIGHT FOOT PAIN TECHNIQUE: 3 views of the foot were acquired. COMPARISON: 05/18/2022, 05/01/2022 FINDINGS: Bones: Again noted is prior amputation of fifth toe at the level of fifth MTP joint. There is persist ent erosive changes involving fifth metatarsal head. No other area of bony erosive changes are seen. Osteoarthritic changes are noted throughout right foot. No acute fracture or dislocation. No suspicio us bony lesions. Soft tissues: Significant soft tissue swelling and edema over fifth toe stump is seen. No tibiotalar joint effusion. Achilles tendon appears normal. IMPRESSION: Finding is consistent with osteomyelitis involving fifth metatarsal head with interval worsening of b kamala erosion. No acute fracture or dislocation. No new area of bony erosive changes. Right foot osteoa rthritis. Reviewed by: Mike Celis MD on 05/25/2022 8:19 PM PST Approved by: Mike Celis MD on 05/25/2022 8:19 PM PST Station ID: [id number]
== END 2022-05-25 13:49 | disposition home or self-care (01) ==
LOC: DI.WOS 13:47
PROVIDERS: ATTEND Orthopaedic Surgery
DX: M86.171 Other acute osteomyelitis, right ankle and foot (principal); M19.071 Primary osteoarthritis, right ankle and foot

== ENCOUNTER 2022-06-27 15:16 | Outpatient (CLI) | payer MEDICARE, MEDICAID ==
--- NOTE | 2022-06-27 15:40 | XRAY Report ---
PROCEDURE: Foot 3 View RT INDICATIONS: RIGHT FOOT ULCER TECHNIQUE: 3 views of the foot were acquired. COMPARISON: 05/25/2022 FINDINGS: Bones: Prior amputation of the fifth toe is again seen with unchanged erosive changes involving the f ifth metatarsal head. The appearance however is completely unchanged compared to 05/25/2022 and there appears to be cortication of the irregular metatarsal head. Soft tissues: No tibiotalar joint effusion. Achilles tendon appears normal. IMPRESSION: 1. No acute abnormality. 2. Irregular changes consistent with erosions of the right fifth toe metatarsal head, unchanged terrell red to prior x-ray on 05/25/2022. Findings are consistent with prior destructive changes, however giv en the lack of interval change acute persistent osteomyelitis is less likely. Reviewed by: Kimani Reinoso on 06/27/2022 3:38 PM PST Approved by: Kimani Reinoso on 06/27/2022 3:38 PM PST Station ID: [id number]
== END 2022-06-27 15:17 | disposition home or self-care (01) ==
LOC: DI.WOS 15:16
PROVIDERS: ATTEND Orthopaedic Surgery
DX: M86.179 Other acute osteomyelitis, unspecified ankle and foot (principal)

== ENCOUNTER 2022-07-27 07:57 | Outpatient (CLI) | payer MEDICARE, MEDICAID ==
--- NOTE | 2022-07-27 12:58 | XRAY Report ---
PROCEDURE: Foot 3 View BILAT INDICATIONS: BILAT FOOT WOUNDS TECHNIQUE: 3 views of the bilateral foot were acquired. COMPARISON: 06/27/2022, 05/25/2022, 01/29/2022, 08/25/2021 FINDINGS: Bones: Left foot: Stable postsurgical changes involving the base of the first metatarsal as well as arthrodesis across the left midfoot laterally. Redemonstration of fractured retrograde screw transfix ing the cuboid and calcaneus. Healed postsurgical changes involving the distal third shaft of the lef t fifth metatarsal from prior resection. Healed fracture deformities of the distal left second metata rsal. Diffuse osteopenia. Moderate degenerative changes of the dorsal left midfoot. No suspicious oss eous erosions noted. No acute fracture. Right foot: Stable postsurgical changes of amputation of the right foot at the level of the distal ri ght fifth metatarsal head. Chronic appearing osseous changes at the resection site. No evidence for a cute fracture. No suspicious osseous erosions seen. Persistent overlying soft tissue swelling surroun ding the right fifth metatarsal. No evidence for soft tissue gas. Degenerative changes of the dorsal right midfoot. Retrocalcaneal spur. No acute fracture. IMPRESSION: 1. Bilateral foot without acute osseous abnormalities. 2. Stable postsurgical changes involving the distal fifth metatarsal bilaterally without evidence for suspicious osseous erosions. Persistent overlying soft tissue prominence. This is more pronounced on the right. If there is persistent high clinical concern for osteomyelitis, consider further evaluation with nucl ear medicine bone scan or MRI. Reviewed by: Kwaku Franco MD on 07/27/2022 12:57 PM PST Approved by: Kwaku Franco MD on 07/27/2022 12:57 PM PST Station ID: [id number]
== END 2022-07-27 08:00 | disposition home or self-care (01) ==
LOC: DI.WOS 07:57
PROVIDERS: ATTEND Orthopaedic Surgery
DX: M79.672 Pain in left foot (principal); L03.115 Cellulitis of right lower limb

== ENCOUNTER 2022-08-14 07:05 | Outpatient (CLI) | payer MEDICARE, MEDICAID ==
[2022-08-14 12:45] LABS: BASOPHILS # (AUTO) 0.1 10^3/uL (0.0-0.1); BASOPHILS % (AUTO) 0.7 %; EOSINOPHILS # (AUTO) 0.4 10^3/uL (0.0-0.7); EOSINOPHILS % (AUTO) 3.6 %; HCT - HEMATOCRIT 43.3 % (37.0-47.0); HGB - HEMOGLOBIN 13.6 g/dL (12.0-16.0); LYMPHOCYTES # (AUTO) 3.2 10^3/uL (1.5-3.5); LYMPHOCYTES % (AUTO) 29.6 %; MEAN CORPUSCULAR HEMOGLOBIN 27.3 pg (27.0-31.0); MEAN CORPUSCULAR HGB CONC 31.4 g/dL (32.0-36.0); MEAN CORPUSCULAR VOLUME 86.9 fL (81.0-99.0); MEAN PLATELET VOLUME 11.5 fL (7.9-10.8); MONOCYTES # (AUTO) 0.6 10^3/uL (0.0-1.0); MONOCYTES % (AUTO) 5.3 %; NEUTROPHILS # (AUTO) 6.6 10^3/uL (1.5-6.6); NEUTROPHILS % (AUTO) 60.3 %; PLT - PLATELET COUNT 265 10^3/uL (130-450); RED BLOOD COUNT 4.98 10^6/uL (4.20-5.40); RED CELL DISTRIBUTION WIDTH 15.3 % (12.0-15.0); WHITE BLOOD COUNT 10.9 x10^3/uL (4.8-10.8)
[2022-08-14 13:14] LABS: ALBUMIN 3.5 g/dL (3.2-5.5); ALBUMIN/GLOBULIN RATIO 0.9 (1.0-2.2); ALKALINE PHOSPHATASE 66 IU/L (42-121); ALT ALANINE AMINOTRANSFERASE 21 IU/L (10-60); AST ASPARTATE AMINOTRANSFERASE 21 IU/L (10-42); BILIRUBIN,TOTAL 0.4 mg/dL (0.2-1.0); BUN - BLOOD UREA NITROGEN 18 mg/dL (6-20); CALCIUM 9.6 mg/dL (8.5-10.3); CARBON DIOXIDE - CO2 31 mmol/L (21-32); CHLORIDE 101 mmol/L (101-111); CHOL/HDL RATIO 4.3 (<4.4); CHOLESTEROL 165 mg/dL; GFR - MDRD 59 (>89); GLUCOSE 144 mg/dL (70-100); HDL CHOLESTEROL 38 mg/dL; LDL CHOLESTEROL,CALCULATED 82 mg/dL; LDL/HDL RATIO 2.2 (<4.4); POTASSIUM 4.5 mmol/L (3.5-5.0); SODIUM 137 mmol/L (135-145); TOTAL PROTEIN 7.4 g/dL (6.7-8.2); TRIGLYCERIDES 227 mg/dL; VLDL CHOLESTEROL 45 mg/dL
[2022-08-14 13:22] LABS: THYROID STIMULATING HORMONE 1.28 uIU/mL (0.34-5.60)
[2022-08-14 13:25] LABS: MICROALBUM/CREATININE RATIO,UR 288.5 ug/mg (<30.0); MICROALBUMIN,URINE 17.6 mg/dL (0-300.0)
[2022-08-14 13:28] LABS: ESTIMATED AVERAGE GLUCOSE 163 mg/dL (70-100); HEMOGLOBIN A1c% 7.3 % (4.27-6.07)
== END 2022-08-14 07:06 | disposition home or self-care (01) ==
LOC: LAB.N 07:05
PROVIDERS: ATTEND Nurse Practitioner
DX: E11.9 Type 2 diabetes mellitus without complications (principal)
CPT/HCPCS: 36415; 80053; 80061; 82043; 82570; 83036; 83721; 84443; 85025

== ENCOUNTER 2022-08-30 08:27 | Emergency (ER) | payer MEDICARE, MEDICAID ==
--- OUTSIDE RECORDS SUMMARY | 2022-08-30 08:55 | EXTERNAL MEDICAL SUMMARY RPT | Continuity of Care Document ---
:1975 Author Organization [facility] Address [address] [place] [address] Phone Allergies No information. Encounters No information. Functional Status No information. Immunizations No information. Medications No information. Problems date description facility 2022-08-24 10:06 Other abnormal and inconclusive finding s [facility] diagnostic imagi Procedures No information. Results/Labs test date author facility value unit interpret ation Result panel 1 (unknown) (no (unknown) (unknown) (no value) (units (unk nown) date) unknown) (unknown) (no (unknown) (unknown) / 25%-50% (units (unkn own) date) unknown) (unknown) (no (unknown) (unknown) [id number] (units (unkno wn) date) unknown) (unknown) (no (unknown) (unknown) 08/24/22 (units (unkno wn) date) unknown) (unknown) (no (unknown) (unknown) [address] [place] [address] (units (unknown) date) unknown) (unknown) (no (unknown) (unknown) 15% of breast (units ( unknown) date) malignancies will unknown) not be visualized mammographically. In the (unknown) (no (unknown) (unknown) 07/20/2021 (units (unkno wn) date) unknown) (unknown) (no (unknown) (unknown) 6.0% and her 10 (units (unknown) date) year risk is unknown) 1.3%. According to the ACR, ACS, and NCCN (unknown) (no (unknown) (unknown) 02/07/2022 (units (unkn own) date) unknown) (unknown) (no (unknown) (unknown) A 1 year (units (unkno wn) date) screening unknown) mammogram is recommended. (unknown) (no (unknown) (unknown) ACR BI-RADS (units (un known) date) Category 0: unknown) Incomplete 3340F (unknown) (no (unknown) (unknown) Accession (units (unkn own) date) Number: unknown) [id number] (unknown) (no (unknown) (unknown) Accession (units (unkn own) date) Number: unknown) [id number] (unknown) (no (unknown) (unknown) Age/Sex: 46 / F (units (unknown) date) Date of Service: unknown) (unknown) (no (unknown) (unknown) An (units (unkno wn) date) unknown) (unknown) (no (unknown) (unknown) [place], [place] (units ( unknown) date) [id number] unknown) (unknown) (no (unknown) (unknown) Approximately (units ( unknown) date) unknown) (unknown) (no (unknown) (unknown) BILATERAL (units (unkn own) date) DIGITAL unknown) DIAGNOSTIC MAMMOGRAM 3D/2D SHORT-TERM FOLLOW-UP: 08/24/2022 (unknown) (no (unknown) (unknown) Based on the (units (un known) date) Jaquan Nava unknown) model (a risk assessment model) the patient's lifetime (unknown) (no (unknown) (unknown) CLINICAL: (units (unkn own) date) Patient returns unknown) today to evaluate a focal asymmetry in the left (unknown) (no (unknown) (unknown) CLINICAL: Short (units (unknown) date) term follow up of unknown) the left breast, due for bilateral imaging. (unknown) (no (unknown) (unknown) Color flow and (units (unknown) date) real-time unknown) ultrasound of the left breast 3-4 o'clock region were (unknown) (no (unknown) (unknown) Comparison is (units ( unknown) date) made to exams unknown) dated: 08/24/2022 mammogram, 02/07/2022 ultrasound, (unknown) (no (unknown) (unknown) Comparison is (units ( unknown) date) made to exams unknown) dated: 02/07/2022 ultrasound, 02/07/2022 mammogram, (unknown) (no (unknown) (unknown) : 1975 (units (unknown) date) Acct:[id number] unknown) (unknown) (no (unknown) (unknown) Electronically (units (unknown) date) Signed By: Kimani unknown) C. Roschmann M.D. (unknown) (no (unknown) (unknown) Health. (units (unkno wn) date) unknown) (unknown) (no (unknown) (unknown) IMPRESSION: (units (un known) date) BENIGN unknown) (unknown) (no (unknown) (unknown) IMPRESSION: (units (un known) date) INCOMPLETE: NEEDS unknown) ADDITIONAL IMAGING EVALUATION (unknown) (no (unknown) (unknown) [facility] (units (unknown) date) unknown) (unknown) (no (unknown) (unknown) [facility] (units (unkno wn) date) unknown) (unknown) (no (unknown) (unknown) LIMITED (units (unkno wn) date) ULTRASOUND OF unknown) LEFT BREAST: 08/24/2022 (unknown) (no (unknown) (unknown) Loc: MAMMO (units (unk nown) date) unknown) (unknown) (no (unknown) (unknown) Mammography (units (un known) date) Report unknown) (unknown) (no (unknown) (unknown) NOTE: For (units (unkn own) date) mammograms, a unknown) report in lay terms will be sent to the patient. (unknown) (no (unknown) (unknown) No other (units (unkno wn) date) significant unknown) masses, calcifications, or other findings are seen in (unknown) (no (unknown) (unknown) Ordering (units (unkno wn) date) Provider: unknown) Meena Tejada P.A-C (unknown) (no (unknown) (unknown) Patient: (units (unkno wn) date) Jane Bentley M unknown) MR#: [id number] (unknown) (no (unknown) (unknown) Procedure: MM (units ( unknown) date) diagnostic mammo unknown) BI (unknown) (no (unknown) (unknown) Procedure: US (units ( unknown) date) breast LT limited unknown) (unknown) (no (unknown) (unknown) Signed (units (unkno wn) date) unknown) (unknown) (no (unknown) (unknown) The stable 2.4 (units (unknown) date) cm x 0.2 cm x 0.2 unknown) cm irregular area of fibrocystic tissue in the (unknown) (no (unknown) (unknown) The stable equal (units (unknown) date) density focal unknown) asymmetry in the left breast is indeterminate. (unknown) (no (unknown) (unknown) There are (units (unkn own) date) scattered areas unknown) of fibroglandular density in both breasts (category b (unknown) (no (unknown) (unknown) There is a (units (unk nown) date) stable benign 2.4 unknown) cm x 0.2 cm x 0.2 cm irregular area of fibrocystic (unknown) (no (unknown) (unknown) There is a stable (units (unknown) date) equal density unknown) focal asymmetry with an indistinct margin in the (unknown) (no (unknown) (unknown) There is no (units (un known) date) sonographic unknown) evidence of malignancy. (unknown) (no (unknown) (unknown) This exam was (units ( unknown) date) interpreted at unknown) Station ID: [id number]. (unknown) (no (unknown) (unknown) Ultrasound (units (unk nown) date) BI-RADS: 2 Benign unknown) (unknown) (no (unknown) (unknown) Ultrasound (units (unk nown) date) Report unknown) (unknown) (no (unknown) (unknown) a palpable (units (unk nown) date) breast mass, a unknown) negative mammogram must not discourage biopsy of a (unknown) (no (unknown) (unknown) acr/:08/24/2022 (units (unknown) date) 10:38:42 unknown) (unknown) (no (unknown) (unknown) acr/:08/24/2022 (units (unknown) date) 11:02:05 unknown) (unknown) (no (unknown) (unknown) annual breast (units ( unknown) date) MRI exam along unknown) with mammogram is recommended if the patient's (unknown) (no (unknown) (unknown) axis (units (unkno wn) date) unknown) (unknown) (no (unknown) (unknown) benign. (units (unkno wn) date) unknown) (unknown) (no (unknown) (unknown) breast at 5 (units (un known) date) o'clock middle unknown) depth. (unknown) (no (unknown) (unknown) breast has a (units (un known) date) differential unknown) diagnosis of clustered cysts or fibrocystic change and (unknown) (no (unknown) (unknown) breast. (units (unkno wn) date) unknown) (unknown) (no (unknown) (unknown) clinically (units (unk nown) date) unknown) (unknown) (no (unknown) (unknown) either breast. (units (unknown) date) unknown) (unknown) (no (unknown) (unknown) glandular (units (unkn own) date) tissue). unknown) (unknown) (no (unknown) (unknown) guidelines, an (units (unknown) date) unknown) (unknown) (no (unknown) (unknown) is 20% or (units (unkn own) date) greater. unknown) (unknown) (no (unknown) (unknown) is (units (unkno wn) date) unknown) (unknown) (no (unknown) (unknown) left (units (unkno wn) date) unknown) (unknown) (no (unknown) (unknown) letter sent: (units (u nknown) date) Normal Exam unknown) (unknown) (no (unknown) (unknown) lifetime risk (units ( unknown) date) unknown) (unknown) (no (unknown) (unknown) mammogram, (units (unk nown) date) 07/20/2021 unknown) ultrasound, 07/20/2021 mammogram, and 06/28/2021 mammogram (unknown) (no (unknown) (unknown) management of (units ( unknown) date) unknown) (unknown) (no (unknown) (unknown) one year. (units (unkn own) date) unknown) (unknown) (no (unknown) (unknown) parallel to the (units (unknown) date) skin. Color flow unknown) imaging demonstrates that there is no (unknown) (no (unknown) (unknown) performed. Win (units (unknown) date) scale images of unknown) the real-time examination were reviewed. (unknown) (no (unknown) (unknown) present. This (units ( unknown) date) area is unchanged unknown) compared to prior ultrasound and is stable for (unknown) (no (unknown) (unknown) risk is (units (unkno wn) date) unknown) (unknown) (no (unknown) (unknown) suspicious (units (unk nown) date) lesion. unknown) (unknown) (no (unknown) (unknown) the left breast (units (unknown) date) at 4 o'clock unknown) middle depth 9 cm from the nipple with the long (unknown) (no (unknown) (unknown) tissue in (units (unkn own) date) unknown) (unknown) (no (unknown) (unknown) ultrasound is (units ( unknown) date) recommended. US unknown) will be performed and dictated separately. (unknown) (no (unknown) (unknown) ultrasound, (units (un known) date) 07/20/2021 unknown) mammogram, and 06/28/2021 mammogram - [facility]. (unknown) (no (unknown) (unknown) vascularity (units (un known) date) unknown) Social History No information. Vital Signs No information.
--- NOTE | 2022-08-30 08:57 | XRAY Report ---
PROCEDURE: Chest 1 View X-Ray INDICATIONS: hemoptysis TECHNIQUE: One view of the chest was acquired. COMPARISON: None. FINDINGS: Surgical changes and devices: CXR 05/10/2022, 04/17/2022. Lungs and pleura: No pleural effusions or pneumothorax. Right upper lobe opacity. Mediastinum: Fullness in the right hilar region. Heart size is normal. Bones and chest wall: No suspicious bony lesions. Overlying soft tissues appear unremarkable. IMPRESSION: Right upper lobe opacity. Fullness in the right hilar region. Differential diagnosis is broad and inc ludes malignancy and infectious/inflammatory etiologies. Recommend CT of the chest with IV contrast for further evaluation. Reviewed by: Marshall Chavez MD on 08/30/2022 8:56 AM PDT Approved by: Marshall Chavez MD on 08/30/2022 8:56 AM PDT Station ID: [id number]
[2022-08-30] MEDS ORDERED: IPRATROPIUM/ALBUTEROL 3 ML NEB INH STA (09:20)
[2022-08-30] MEDS ORDERED: DEXAMETHASONE 10 MG/ML VIAL IM STA (09:20)
--- NOTE | 2022-08-30 09:26 | ED Physician Documentation ---
PD HPI DYSPNEA - Stated complaint Stated Complaint: COUGHING UP BLOOD - Chief complaint Chief Complaint: Resp - History obtained from History obtained from: Patient - Additional information Additional information: The patient comes to the emergency department with chief complaint of cough, wheezing, and chest tightness/shortness of breath for the last month. She is a 32-year smoker and is trying to quit and states she is down to 7 cigarettes a day. Her doctor has diagnosed her with COPD already. The patient states that she has been placed on a new inhaler, and it seemed to help for a day but then her cough started acting up again. The patient does not feel as though she has been sick. She states she did not have any upper respiratory infection or anything else that she thinks should have kicked off this cough. She denies any fevers or chills. No other complaints at this time. 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 PROFESSOR: None : Incontinence HEENT: Chronic vision loss Psych: Depression, Bipolar disorder, Panic attacks Musculoskeletal: Chronic back pain, Other Derm: None - Past Surgical History Past Surgical History: Yes General: Colonoscopy, Other Ortho: Spine surgery, Other /ARCHITECTURE PROFESSOR: Hysterectomy, Other - Present Medications Home Medications: Ambulatory Orders Medication Instructions Recorded Confirmed ARIPiprazole [Abilify] 5 - 10 mg PO BID 05/13/13 05/10/22 Pregabalin [Lyrica] 150 mg PO TID 08/28/13 05/10/22 Albuterol Sulf [Ventolin Hfa 1 puffs INH Q4HR PRN 12/11/20 05/10/22 Inhaler] Fluoxetine HCl [Prozac] 80 mg PO DAILY 12/11/20 05/10/22 Clonidine HCl [Clonidine HCl ER] 0.1 mg PO QPM 12/29/20 05/10/22 Metformin HCl [Fortamet] 500 mg PO DAILY 12/29/20 05/10/22 Amox/Clav 875/125 [Augmentin 1 tablet PO Q12H 03/14/22 05/10/22 875/125 Tab] Atorvastatin [Lipitor] 20 mg PO DAILY 03/14/22 05/10/22 Furosemide [Lasix] 20 mg PO DAILY 03/14/22 05/10/22 HYDROcodone/ACET 10/325 [[place] 10 1 tablet PO Q8H PRN 03/14/22 05/10/22 mg/325 mg] hydrOXYzine HCL [Hydroxyzine HCl] 50 mg PO BID PRN 03/14/22 05/10/22 - Allergies Allergies/Adverse Reactions: Allergies Allergy/AdvReac Type Severity Reaction Status Date / Time oxycodone Allergy Unknown Verified 08/30/22 08:37 oxycodone HCl * Allergy Unknown Verified 08/30/22 08:37 [From Percocet] ziprasidone [From Geodon] Allergy Hallucinati Verified 08/30/22 08:37 ons codeine [Codeine] AdvReac Severe Rash Verified 08/30/22 08:37 - Social History Does the pt smoke?: Yes Smoking Status: Current every day smoker Does the pt drink ETOH?: No Does the pt have substance abuse?: Yes - Immunizations Immunizations are current?: Yes - POLST Patient has POLST: No PD ED PE NORMAL - Vitals Vital signs reviewed: Yes - General General: Alert and oriented X 3, No acute distress, Well developed/nourished - HEENT HEENT: Atraumatic, PERRL, EOMI, Moist mucous membranes - Neck Neck: Supple, no meningeal sign - Cardiac Cardiac: RRR, No murmur, Strong equal pulses - Respiratory Respiratory: No respiratory distress, Other (Mildly coarse breath sounds with faint expiratory wheezes.) - Abdomen Abdomen: Soft, Non tender, Non distended - Derm Derm: Normal color, Warm and dry, No rash - Extremities Extremities: No deformity, No edema - Neuro Neuro: Alert and oriented X 3, Normal speech - Psych Psych: Normal mood, Normal affect Results - Vitals Vitals: Vital Signs - 24 hr 08/30/22 08/30/22 08/30/22 08:34 09:09 09:40 Temperature 36.4 C L Heart Rate 87 82 79 Respiratory 20 15 19 Rate Blood Pressure 154/101 H 152/95 H O2 Saturation 95 95 Oxygen O2 Source Room air - Labs Labs: Laboratory Tests 08/30/22 08/30/22 08/30/22 10:04 10:04 10:04 WBC 15.3 H RBC 5.23 Hgb 14.5 Hct 46.0 MCV 88.0 MCH 27.7 MCHC 31.5 L RDW 15.4 H Plt Count 284 MPV 10.5 Neut # (Auto) 10.6 H Lymph # (Auto) 3.6 H [place] # (Auto) 0.7 Eos # (Auto) 0.2 Baso # (Auto) 0.1 Absolute Nucleated RBC 0.00 Nucleated RBC % 0.0 Sodium 139 Potassium 4.0 Chloride 100 L Carbon Dioxide 28 Anion Gap 11.0 BUN 18 Creatinine 0.9 Estimated GFR (MDRD) 67 L Glucose 101 H Calcium 9.8 Total Bilirubin 0.4 AST 23 ALT 21 Alkaline Phosphatase 71 Total Protein 8.4 H Albumin 3.9 Globulin 4.5 H Albumin/Globulin Ratio 0.9 L Lipase 44 Serum HCG, Qual NEGATIVE - Rads (name of study) chest XR Relevant Findings:: Final report received, See rad report Chest CT Relevant Findings:: Final report received (Right upper lobe mass and enlarged hilar lymph nodes on the right with suspected endobronchial mass.), See rad report PD Medical Decision Making - ED course Complexity details: reviewed results, re-evaluated patient, considered differential, d/w patient ED course: The patient was sent for an x-ray of her chest and treated with a DuoNeb and Decadron. The x-ray showed findings concerning for potential mass versus other etiologies and the patient was sent for CT scan of the chest. This did show a right lung mass with suspected endobronchial mass, as well and enlarged hilar lymph nodes. I did speak with the intake roof bolting coal miner at [facility] in [place] to try to facilitate timely follow-up for this patient. He did recommend that the patient's information be faxed over to [phone] and that would be the fastest way to start getting care set up for the patient. He did also Sure the phone number of the head, neck, and lung intake team, which is [phone]. However, he did note that often the call just goes to voicemail and that talking to them directly will not speed up the process of getting the patient set up for care. His greatest recommendation was to fax all of the patient's information and results from today to the fax number above. I did arrange with our social media community manager to do this and in the meantime, I went and spoke with the patient. I have informed her of the findings and answered her questions and her 's questions as best as possible. The patient is tearful but expresses understanding. I do not find any evidence of infection at this time, and I have advised her that her mild hemoptysis Could be due either to the chronic coughing or to the actual endobronchial mass itself. I have advised the patient that I will attempt to get a hold of her PA in primary care, Ms. Chapman, So that we can help expedite and facilitate her care as best as possible. I have also advised the patient to call Ms. Chapman's office this afternoon to set up a follow-up appointment. The patient has expressed understanding and we have discussed the need for urgent follow-up and the usual indications for return. I was able to speak with RANDA Adela and informed her of the patient's findings on CT and of my conversation with Vitaly Sullivan. RANDA Chapman stated that she would have her office call the patient and get a follow-up appointment set up for soon as possible. Departure - Departure Disposition: 01 Home, Self Care Clinical Impression: Lung mass, Hemoptysis Condition: Stable Instructions: Cancer Lung Dx Staging, Cancer Lung Dc Comments: Unfortunately, your CT did show a couple of tumors in your right lung. One appears to involve one of your airways, and it may be that this or the ongoing cough that has caused your bloody sputum. Your case has been discussed with the intake roof bolting coal miner at [facility] in [place]. He has requested that we fax all of your information down to their Head, Neck, and Lung Team so that they can start preparing a plan for you. He says they will give you a call, although you may call their team at [phone] if you wish. I will also attempt to get a hold of your primary doctor to let her know what is going on so that she can follow up with you closely and help facilitate your care and any referrals she may need. There is no infection at this time, so no indication for antibiotics. Please call your doctor's office this afternoon to set up a follow-up appointment and be sure to let them know your diagnosis and that you need to be seen a soon as possible.
[2022-08-30] MEDS ORDERED: DEXAMETHASONE 10 MG/ML VIAL IVP STA (09:44)
[2022-08-30 10:12] LABS: BASOPHILS # (AUTO) 0.1 10^3/uL (0.0-0.1); BASOPHILS % (AUTO) 0.7 %; EOSINOPHILS # (AUTO) 0.2 10^3/uL (0.0-0.7); EOSINOPHILS % (AUTO) 1.2 %; HGB - HEMOGLOBIN 14.5 g/dL (12.0-16.0); LYMPHOCYTES # (AUTO) 3.6 10^3/uL (1.5-3.5); LYMPHOCYTES % (AUTO) 23.5 %; MEAN CORPUSCULAR HEMOGLOBIN 27.7 pg (27.0-31.0); MEAN CORPUSCULAR HGB CONC 31.5 g/dL (32.0-36.0); MEAN PLATELET VOLUME 10.5 fL (7.9-10.8); MONOCYTES # (AUTO) 0.7 10^3/uL (0.0-1.0); MONOCYTES % (AUTO) 4.4 %; NEUTROPHILS # (AUTO) 10.6 10^3/uL (1.5-6.6); NEUTROPHILS % (AUTO) 69.3 %; PLT - PLATELET COUNT 284 10^3/uL (130-450); RED BLOOD COUNT 5.23 10^6/uL (4.20-5.40); RED CELL DISTRIBUTION WIDTH 15.4 % (12.0-15.0); WHITE BLOOD COUNT 15.3 x10^3/uL (4.8-10.8)
[2022-08-30 10:26] LABS: ALBUMIN 3.9 g/dL (3.2-5.5); ALBUMIN/GLOBULIN RATIO 0.9 (1.0-2.2); BILIRUBIN,TOTAL 0.4 mg/dL (0.2-1.0); CALCIUM 9.8 mg/dL (8.5-10.3); CREATININE 0.9 mg/dL (0.4-1.0); TOTAL PROTEIN 8.4 g/dL (6.7-8.2)
[2022-08-30 10:35] LABS: HCG,QUALITATIVE BLOOD NEGATIVE
[2022-08-30] MEDS ORDERED: iohexoL-300 100 ML VIAL ONE (11:02)
--- NOTE | 2022-08-30 12:02 | CT Report ---
PROCEDURE: CHEST W INDICATIONS: R hilar mass, RUL opacity CONTRAST:100ml Omnipaque 300 TECHNIQUE: After the administration of intravenous contrast, 1 mm axial images were acquired from the pulmonary apices through the posterior costophrenic angles. Axial 5 mm soft tissue kernel reconstructions were performed as well as 8 mm axial MIP and coronal and sagittal 5 mm reformations. For radiation dose reduction, the following was used: automated exposure control, adjustment of mA and/or kV according to patient size. COMPARISON: CT chest without, 07/26/2019. FINDINGS: Image quality: Excellent. Lungs and pleura: There is an irregular masslike density in the right upper lobe. Precise measuremen t of the mass is difficult because of superimposed right upper lobe atelectasis. There is narrowing o f the right upper lobe bronchus, concerning for endobronchial lesions. Infiltrates and consolidations in the right upper lobe are present, probably secondary to post obstructive pneumonia. The right upp er lobe is partially collapsed. No pleural effusions or pneumothorax. Central and peripheral airways are patent and normal in calibe r. Mediastinum: There is a large right hilar mass measuring 5.6 x 3.2 cm. Enlarged mediastinal lymph no de is present measuring 3.2 cm in diameter. Heart size is normal. No pericardial effusion. Thoracic aorta and central pulmonary arteries are no rmal in size. Esophagus is normal in caliber. No hiatal hernia. Bones and chest wall: No suspicious bony lesions. No vertebral body compression fractures. No axil pedro or supraclavicular adenopathy by size criteria. The thyroid is normal in size and there are no incidental findings.. Abdomen: Visualized upper abdominal solid organs appear normal. Upper abdominal bowel loops are nor mal in caliber. IMPRESSION: 1. Narrowing of the right upper lobe bronchus, highly suspicious for endobronchial mass. There is an irregular mass in the right upper lobe superimposed on right upper lobe atelectasis. 2. Right upper lobe infiltrates and consolidation consistent with pneumonia. Superimposed pulmonary m etastasis in the right upper lobe is a differential diagnosis. 3. Right hilar and mediastinal lymphadenopathy consistent with laz metastasis. Reviewed by: Erik Juarez MD on 08/30/2022 12:00 PM PDT Approved by: Erik Juarez MD on 08/30/2022 12:00 PM PDT Station ID: [id number]
[2022-08-30 12:56] VITALS: BP 182/96
== END 2022-08-30 12:56 | disposition home or self-care (01) ==
LOC: ED 08:27
DX: R91.8 Other nonspecific abnormal finding of lung field (principal); R04.2 Hemoptysis; E11.9 Type 2 diabetes mellitus without complications; F17.200 Nicotine dependence, unspecified, uncomplicated
CPT/HCPCS: 36415; 71045; 71260; 80053; 83690; 84703; 85025; 94640; 96374; 99284; Q9967

== ENCOUNTER 2022-09-19 08:56 | Outpatient (CLI) | payer MEDICARE, MEDICAID ==
[~2022-09-19 08:56] MED LIST changes: -ACETAMINOPHEN 500 MG TABLET PO ONE; -CEFAZOLIN 2G/50ML 0.9% NS 2 GM/50 ML BAG IV ONE; +GADOBUTROL 15 MMOL/15 ML VIAL ONE
--- NOTE | 2022-09-19 13:05 | MRI Report ---
PROCEDURE: UPPER ARM/HUMERUS W/WO - LT INDICATIONS: LUNG CA CONTRAST: gadavist 11ml TECHNIQUE: Noncontrast coronal T1 spin echo and STIR, sagittal T1 spin echo with fat saturation and STIR, axial T1 spin echo and T2 fast spin echo with fat saturation. After the administration of contrast, axial/ sagittal/coronal T1 spin echo with fat saturation through the left humerus. COMPARISON: None. FINDINGS: Image quality: Images are mildly degraded by extensive wrap artifact on multiple pulse sequences. Bere gnostic information is obtained. Bones: Multiple (at least 8) [id number] and [id number]-[id number] enhancing osseous lesions are seen within the medullary canal throughout the humerus, which are highly suspicious for osseous metastase s. No focal cortical destruction or pathologic fracture. The scapula and clavicle are only partially imaged. Mild nonspecific enhancement is seen with the left second rib, included at the margins of the [id number] of this exam.. The visualized bone marrow demonstrates normal signal on all sequences. The overlying cortex appears intact. No abnormal intraosseous enhancement. Soft tissues: No enhancing soft tissue mass. The scanned muscles demonstrate normal overall bulk and internal signal. Subcutaneous tissues appear normal as well. No abnormal soft tissue enhancement. IMPRESSION: 1.Multiple enhancing masses within the medullary canal throughout the humerus are highly suspicious f or osseous metastatic disease. 2.Mild enhancement is seen within the left second rib, which is only included at the margins of the f [id number] of this exam. Recommend correlation with prior PET/CT findings. Reviewed by: Russell Monroy MD on 09/19/2022 1:04 PM PDT Approved by: Russell Monroy MD on 09/19/2022 1:04 PM PDT Station ID: [id number]
[2022-09-19] MEDS ORDERED: GADOBUTROL 15 MMOL/15 ML VIAL IVP ONE (14:03)
== END 2022-09-19 08:57 | disposition home or self-care (01) ==
LOC: DI 08:56
PROVIDERS: ATTEND Internal Medicine Hematology & Oncology
DX: C34.90 Malignant neoplasm of unspecified part of unspecified bronchus or lung (principal); R93.7 Abnormal findings on diagnostic imaging of other parts of musculoskeletal system
CPT/HCPCS: 73220; A9585

== ENCOUNTER 2022-09-23 09:43 | Outpatient (CLI) | payer MEDICARE, MEDICAID ==
[2022-09-23] MEDS ORDERED: GADOBUTROL 15 MMOL/15 ML VIAL IVP ONE (11:18)
--- NOTE | 2022-09-25 12:34 | MRI Report ---
PROCEDURE: THORACIC SPINE W/WO INDICATIONS: LUNG CA CONTRAST: GADAVIST 11.1 ML TECHNIQUE: Noncontrast sagittal T1 spin echo and T2 fast spin echo, sagittal STIR, axial T1 and T2 fast spin ech o through the thoracic spine. After the administration of contrast, axial and sagittal T1 spin echo with fat saturation through the thoracic spine. COMPARISON: None. FINDINGS: Image quality: Excellent. Alignment and curvature: There is normal bony alignment. 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 There is near complete replacement of the T8 verteb ral body with extension into the left pedicle. No evidence of vertebral body collapse or epidural/per ivertebral involvement. Vague enhancement present. Spinal cord: Visualized spinal cord is of normal signal and size, without abnormal enhancement. Paraspinous soft tissues: No paravertebral masses or abnormal enhancement. Small right-sided pleura l effusion incidentally noted. Right lung neoplastic involvement, partially imaged Miscellaneous: Central canal and foramina appear widely patent at all scanned levels. 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
== END 2022-09-23 09:44 | disposition home or self-care (01) ==
LOC: DI 09:43
PROVIDERS: ATTEND Internal Medicine Hematology & Oncology
DX: C34.90 Malignant neoplasm of unspecified part of unspecified bronchus or lung (principal); C79.52 Secondary malignant neoplasm of bone marrow
CPT/HCPCS: 72157; A9585

== ENCOUNTER 2022-09-25 09:51 | Outpatient (CLI) | payer MEDICARE, MEDICAID ==
[2022-09-25] MEDS ORDERED: GADOBUTROL 15 MMOL/15 ML VIAL IVP ONE (14:03)
--- NOTE | 2022-09-25 19:10 | MRI Report ---
PROCEDURE: LUMBAR SPINE W/WO INDICATIONS: LUNG CA, LOW BACK PAIN CONTRAST: gadavist 11ml TECHNIQUE: Noncontrast sagittal T1 spin echo and T2 fast spin echo, sagittal STIR, axial T1 and T2 fast spin ech o through the lumbar spine. In cases with scoliosis, additional coronal T2 fast spin echo may be per formed. After the administration of contrast, sagittal and axial T1 spin echo with fat saturation th rough the lumbar spine. COMPARISON: 05/10/2015. Correlation is made with recent prior thoracic spine MRI, 09/23/2022. FINDINGS: Image quality: There is artifact associated with the metallic hardware. Alignment and curvature: There is normal bony alignment. Marrow: Multiple sites of abnormal marrow signal can be seen, decreased T1-weighted signal and increa sed T2-weighted/STIR signal, with increased enhancement. These are seen at each visualized lumbar lev el, although there probably seen within the postoperative region, secondary to the susceptibility art ifact. Spinal cord: Conus medullaris terminates at the L1 level. Visualized spinal cord demonstrates babita l signal, without suspicious enhancement. Paraspinous soft tissues: No paravertebral masses or abnormal enhancement. L3-S1 postoperative hardware can be seen, with bilateral pedicle screws and vertical fixation rods. D isc spacers are seen at L3-L4, L4-L5, and L5-S1. There has been removal of portions of the posterior elements. T12-L1: Normal in appearance. L1-L2: Normal in appearance. L2-L3: The disc height is relatively well preserved. Mild to moderate disc bulge is seen. A superi mposed central disc protrusion is seen. Mild facet hypertrophy is seen. Moderate bilateral neural f oraminal narrowing is seen. Moderate central canal narrowing is seen. L3-L4: Postoperative changes are seen. No significant neural foraminal or central canal narrowing c an be seen. L4-L5: Postoperative changes are seen. Mild disc bulge is seen. Mild bilateral neural foraminal n arrowing is seen. The central canal is widely patent. L5-S1: There are postoperative changes at this level. No significant neural foraminal or central ca nal narrowing can be seen. IMPRESSION: Widespread metastatic disease can be seen within the lumbar spine, with abnormal marrow signal with e nhancement seen at each lumbar level. However, the metastatic disease is poorly seen within the post operative region, secondary to susceptibility artifact. L3-S1 postoperative change is seen. Reviewed by: Gomez Alvarez MD on 09/25/2022 6:08 PM NICKY Approved by: Gomez Alvarez MD on 09/25/2022 6:08 PM NICKY Station ID: [id number]
== END 2022-09-25 09:52 | disposition home or self-care (01) ==
LOC: DI 09:51
PROVIDERS: ATTEND Internal Medicine Hematology & Oncology
DX: C79.51 Secondary malignant neoplasm of bone (principal); C34.90 Malignant neoplasm of unspecified part of unspecified bronchus or lung; M51.36 Other intervertebral disc degeneration, lumbar region; M48.061 Spinal stenosis, lumbar region without neurogenic claudication; M51.26 Other intervertebral disc displacement, lumbar region; M47.816 Spondylosis without myelopathy or radiculopathy, lumbar region
CPT/HCPCS: 72158; A9585

== ENCOUNTER 2022-12-18 11:15 | Outpatient (CLI) | payer MEDICARE, MEDICAID ==
[2022-12-18 19:22] LABS: BASOPHILS % (AUTO) 0.6 %; EOSINOPHILS # (AUTO) 0.1 10^3/uL (0.0-0.7); EOSINOPHILS % (AUTO) 3.8 %; HCT - HEMATOCRIT 20.6 % (37.0-47.0); LYMPHOCYTES # (AUTO) 1.4 10^3/uL (1.5-3.5); LYMPHOCYTES % (AUTO) 90.6 %; MEAN CORPUSCULAR HEMOGLOBIN 29.1 pg (27.0-31.0); MEAN CORPUSCULAR HGB CONC 32.5 g/dL (32.0-36.0); MEAN CORPUSCULAR VOLUME 89.6 fL (81.0-99.0); MONOCYTES # (AUTO) 0.1 10^3/uL (0.0-1.0); MONOCYTES % (AUTO) 3.1 %; NEUTROPHILS % (AUTO) 1.9 %; RED CELL DISTRIBUTION WIDTH 19.6 % (12.0-15.0)
[2022-12-18 19:43] LABS: ALBUMIN 3.6 g/dL (3.2-5.5); ALBUMIN/GLOBULIN RATIO 1.1 (1.0-2.2); BILIRUBIN,TOTAL 0.4 mg/dL (0.2-1.0); CALCIUM 9.4 mg/dL (8.5-10.3); CREATININE 0.8 mg/dL (0.4-1.0); POTASSIUM 4.2 mmol/L (3.5-5.0)
[2022-12-18 20:26] LABS: HGB - HEMOGLOBIN 6.7 g/dL (12.0-16.0); PLT - PLATELET COUNT 3 10^3/uL (130-450); WHITE BLOOD COUNT 1.6 x10^3/uL (4.8-10.8)
[2022-12-18 20:27] LABS: PLATELET ESTIMATE, MANUAL DECREASED (<130,000) (NORMAL); PLATELET MORPHOLOGY NORMAL APPEARANCE (NORMAL)
[2022-12-18 20:30] LABS: DIFFERENTIAL COMMENT MANUAL=AUTO DIFF
== END 2022-12-18 11:30 | disposition home or self-care (01) ==
LOC: LAB.N 11:15
PROVIDERS: ATTEND Nurse Practitioner
DX: R23.8 Other skin changes (principal)
CPT/HCPCS: 36415; 80053; 85025

== ENCOUNTER 2022-12-18 20:55 | Inpatient (IN) | payer MEDICARE, MEDICAID ==
--- NOTE | 2022-12-18 21:12 | ED Physician Documentation ---
History of Present Illness - Stated complaint Stated Complaint: SOA - Chief complaint Chief Complaint: General - History obtained from History obtained from: Patient - Additonal information Additional information: She was diagnosed with metastatic non-small cell carcinoma few months ago. Was started on palliative chemotherapyIn September with carboplatin, etoposide, and Tecentriq. She finished up her last chemotherapy December 05 but it was still going to be on maintenance Tecentriq. She was diagnosed with metastatic non-small cell carcinoma few months ago. Was started on palliative chemotherapy. She had labs done today which were notable for hemoglobin of 6.7 and a plate count of 3000 and was referred here for further evaluation and treatment. She does note easy bruising including a large bruise on the left medial bicep and a very small amount of blood in the toilet today. No melena. 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: None : Incontinence HEENT: Chronic vision loss Psych: Depression, Bipolar disorder, Panic attacks Musculoskeletal: Chronic back pain, Other Derm: None - Past Surgical History Past Surgical History: Yes General: Colonoscopy, Other Ortho: Spine surgery, Other /DRIVER LICENSE REVIEWING OFFICER: Hysterectomy, Other - Present Medications Home Medications: Ambulatory Orders Medication Instructions Recorded Confirmed ARIPiprazole [Abilify] 5 - 10 mg PO BID 05/13/13 12/13/22 Pregabalin [Lyrica] 150 mg PO TID 08/28/13 12/13/22 Albuterol Sulf [Ventolin Hfa 1 puffs INH Q4HR PRN 12/11/20 12/13/22 Inhaler] Fluoxetine HCl [Prozac] 80 mg PO DAILY 12/11/20 12/13/22 Metformin HCl [Fortamet] 500 mg PO BID 12/29/20 12/13/22 cloNIDine HCL [Clonidine HCl ER] 0.1 mg PO QPM 12/29/20 12/13/22 Amox/Clav 875/125 [Augmentin 1 tablet PO Q12H 03/14/22 12/13/22 875/125 Tab] Atorvastatin [Lipitor] 20 mg PO DAILY 03/14/22 12/13/22 Furosemide [Lasix] 20 mg PO DAILY 03/14/22 12/13/22 HYDROcodone/ACET 10/325 [[place] 10 1 tablet PO Q8H PRN 03/14/22 12/13/22 mg/325 mg] hydrOXYzine HCL [Hydroxyzine HCl] 50 mg PO BID PRN 03/14/22 12/13/22 Hydrocodone/Acetaminophen 1 each PO Q6HR 12/13/22 12/13/22 [Hydrocodone-Acetamin 10-325 mg] LORazepam [Ativan] 0.5 mg PO Q6H 12/13/22 12/13/22 Propranolol [Inderal] 10 mg PO BID 12/13/22 12/13/22 Senna [Senokot] 17.2 mg PO PRN PRN 12/13/22 12/13/22 - Allergies Allergies/Adverse Reactions: Allergies Allergy/AdvReac Type Severity Reaction Status Date / Time oxycodone Allergy Unknown Verified 08/30/22 08:37 oxycodone HCl * Allergy Unknown Verified 08/30/22 08:37 [From Percocet] ziprasidone [From Geodon] Allergy Hallucinati Verified 08/30/22 08:37 ons codeine [Codeine] AdvReac Severe Rash Verified 08/30/22 08:37 - Social History Does the pt smoke?: Yes Smoking Status: Current every day smoker Does the pt drink ETOH?: No Does the pt have substance abuse?: Yes - Immunizations Immunizations are current?: Yes - POLST Patient has POLST: No PD ED PE NORMAL - Vitals Vital signs reviewed: Yes - General General: Alert and oriented X 3 - HEENT HEENT: Other (Alopecia) - Neck Neck: Supple, no meningeal sign, No bony TTP - Cardiac Cardiac: Other (Mild resting tachycardia) - Respiratory Respiratory: No respiratory distress, Clear bilaterally - Abdomen Abdomen: Non tender - Derm Derm: Normal color, Warm and dry - Extremities Extremities: Other (Palm sized bruise left medial distal bicep) - Neuro Neuro: Alert and oriented X 3, Normal speech Results - Vitals Vitals: Vital Signs - 24 hr 12/18/22 21:01 Temperature 36.8 C Heart Rate 106 H Respiratory 18 Rate Blood Pressure 125/84 H O2 Saturation 100 Oxygen O2 Source Room air - Labs Labs: Laboratory Tests 12/18/22 12/18/22 12:00 21:31 Blood Type A POSITIVE Blood Type Recheck A POSITIVE Antibody Screen NEGATIVE Crossmatch IS Only See Detail PD Medical Decision Making - ED course ED course: 47-year-old woman with recent diagnosis of non-small cell lung cancer undergoing chemotherapy presents with with outpatient labs showing significant pancytopenia. Her hemoglobin went from 8.2 a week ago down to 6.7 today, white blood cell count from 6.5 down to 1.6, and platelet count going from 84 down to 3. She admits to easy bruising and had a small amount of blood on the toilet paper without symptoms concerning of significant GI bleed at this point. I discussed the case by phone with Dr. Haresh Diamond, [facility] hematology onc ology and she recommends 1 sixpack of platelets which should raise her platelet count by 30, up to 36, and 1 unit of blood. She does not need special product prep for her blood products. Nor does she see any reason that she would have to be transferred. Telehealth consultation for observation placed at 9:[address] Huff of telehealth at 10:40 PM who will admit the patient. Departure - Departure Disposition: ED Place in Observation Clinical Impression: Pancytopenia Condition: Stable
[2022-12-18] MEDS ORDERED: SENNA 8.6 MG TABLET PO PRN (23:56)
--- NOTE | 2022-12-18 23:56 | HISTORY & PHYSICAL EXAMINATION ---
Chief Complaint - Chief Complaint Chief Complaint: bruising, fatigue History of Present Illness - History of Present Illness HPI Comment/Other: pt presents to hospital after being seen in urgent care for easy bruising and noted to have low hgb (6.7) and plt (3K) counts. she does feel tired but denies any other symptoms. no fevers, chills, chest pain. she is currently undergoing chemotherapy and immunotherapy for NSCLC and has h/o CMT disease. no falls reported. she did also report noticing a small amount of blood on toilet paper when wiping but denies any melena or familia blood in stool. no sob. no dysuria or hematuria. no abdominal pain. no falls. no dizziness. no confusion. History - Past Medical History Cardiovascular: reports: High cholesterol, Angina, Murmur Respiratory: reports: COPD Neuro: reports: Headaches Endocrine/Autoimmune: reports: Type 2 diabetes GI: reports: Ulcerative colitis EDUCATION REPORTER: reports: None : reports: Incontinence HEENT: reports: Chronic vision loss Psych: reports: Depression, Bipolar disorder, Panic attacks Musculoskeletal: reports: Chronic back pain, Other Derm: reports: None MRSA Hx?: No - Past Surgical History General: reports: Colonoscopy, Other Ortho: reports: Spine surgery, Other /EDUCATION REPORTER: reports: Hysterectomy, Other - Family & Social History Family History: Mother: Alive and Well, Father: Family History Comment/Other: Patient report her mother has diabetic history and still living. His father at age 61 from lung cancer and heavy smoker Social History Notes: Patient report she just quit cigarette smoking 1 month ago, she denies alcohol issue but she reported she smoke marijuana - Substance History Use: Uses substance without health or social issues: Tobacco - POLST Patient has POLST: No Meds/Allgy - Home Medications Home Medications: Ambulatory Orders Medication Instructions Recorded Confirmed ARIPiprazole [Abilify] 5 - 10 mg PO BID 05/13/13 12/13/22 Pregabalin [Lyrica] 150 mg PO TID 08/28/13 12/13/22 Albuterol Sulf [Ventolin Hfa 1 puffs INH Q4HR PRN 12/11/20 12/13/22 Inhaler] Fluoxetine HCl [Prozac] 80 mg PO DAILY 12/11/20 12/13/22 Metformin HCl [Fortamet] 500 mg PO BID 12/29/20 12/13/22 cloNIDine HCL [Clonidine HCl ER] 0.1 mg PO QPM 12/29/20 12/13/22 Amox/Clav 875/125 [Augmentin 1 tablet PO Q12H 03/14/22 12/13/22 875/125 Tab] Atorvastatin [Lipitor] 20 mg PO DAILY 03/14/22 12/13/22 Furosemide [Lasix] 20 mg PO DAILY 03/14/22 12/13/22 HYDROcodone/ACET 10/325 [[place] 10 1 tablet PO Q8H PRN 03/14/22 12/13/22 mg/325 mg] hydrOXYzine HCL [Hydroxyzine HCl] 50 mg PO BID PRN 03/14/22 12/13/22 Hydrocodone/Acetaminophen 1 each PO Q6HR 12/13/22 12/13/22 [Hydrocodone-Acetamin 10-325 mg] LORazepam [Ativan] 0.5 mg PO Q6H 12/13/22 12/13/22 Propranolol [Inderal] 10 mg PO BID 12/13/22 12/13/22 Senna [Senokot] 17.2 mg PO PRN PRN 12/13/22 12/13/22 - Allergies Allergies/Adverse Reactions: Allergies Allergy/AdvReac Type Severity Reaction Status Date / Time oxycodone Allergy Unknown Verified 08/30/22 08:37 oxycodone HCl * Allergy Unknown Verified 08/30/22 08:37 [From Percocet] ziprasidone [From Geodon] Allergy Hallucinati Verified 08/30/22 08:37 ons codeine [Codeine] AdvReac Severe Rash Verified 08/30/22 08:37 Review of Systems - Other Findings Other Findings: 14 pt review done with positives per hpi; all others reviewed as negative Exam - Vital Signs Vital Signs: Vital Signs x48h Temp Pulse Pulse Resp BP BP Pulse Ox 12/18/22 23:36 36.8 C 97 16 120/65 98 12/18/22 23:21 36.9 C 97 16 119/66 98 12/18/22 21:01 36.8 C 106 H 18 125/84 H 100 - Physical Exam Comments/Other: gen - aaox3, nad, polite heent - eomi, nc/at heart - per rn, rrr lungs - per rn, ctab abd - soft, nt msk - L ankle/foot brace (CMT disease) Conclusion/Plan - Other Other Results/Comments: pt with - - pancytopenia low hgb and plt count in setting of chemotherapy + immunotherapy heme/onc notified --> ok to transfuse 1 unit prbc and 1 unit plt, no pre- treatment needed transfusions ordered by ED monitor results - blood per rectum likely related to above, but will check FOBT - bruising d/t above monitor, transfuse - CMT and complex regional pain syndrome at baseline, continue home meds - generalized fatigue in setting of above transfuse, supportive care f/u labs, replete electrolytes further orders per clinical course
[2022-12-19] MEDS ORDERED: ONDANSETRON ODT 4 MG TABLET TL PRN (00:20)
[2022-12-19] MEDS: HYDROcod/ACETAM 10 MG/325 MG TABLET PO PRN ×4 (01:08→22:25)
[2022-12-19] MEDS ORDERED: ALBUTEROL NEB 2.5 MG/3 ML INH PRN (01:13)
[2022-12-19] MEDS: LORazepam 0.5 MG TABLET PO SCH ×4 (03:35→17:59)
[2022-12-19] MEDS: SODIUM CHLORIDE FLUSH 0.9% 10 ML SYRINGE IVP SCH ×3 (03:35→16:44)
[2022-12-19] MEDS ORDERED: HYDROmorphone 0.5 MG/0.5 ML SYRINGE IVP STA (04:11)
--- NOTE | 2022-12-19 04:13 | PROVIDER PROGRESS NOTE ---
Radar Signal Processing Engineer Note - Radar Signal Processing Engineer Note Radar Signal Processing Engineer Note: Consult Information Member Facility: [facility] Facility Requesting Clinician: Leeann Lindsey Patient Name: Jane Bentley Date of : 1975 Gender: Female Reason for Consult Reason for Consult: Other non-Emergent Clinical Note Clinical Note: per rn - "PT admitted for anemia/soa Received chemo (NSCLC mets to bone) x1 week ago, Started bruising. in arm Pending platelets Pt received [place] PO at 1AM Pt states her pain is increasing again in her back, she usually sleeps in a big soft recliner at home. Pt states she does have PO hydromorphone PRN but rarely takes it, She does not recall the dosage. Requesting Pain medication for breakthrough pain. Current pain management [place] q8h PRN" dilaudid 0.5 mg iv x 1 dose
[2022-12-19] MEDS: SODIUM CHLORIDE FLUSH 0.9% 10 ML SYRINGE IVP PRN (04:28)
[2022-12-19] MEDS: PREGABALIN 100 MG CAPSULE PO SCH ×3 (05:12→21:43)
[2022-12-19] MEDS: PREGABALIN 25 MG CAPSULE PO SCH ×3 (05:12→21:43)
[2022-12-19 05:27] LABS: BASOPHILS % (AUTO) 0.5 %; EOSINOPHILS % (AUTO) 3.8 %; LYMPHOCYTES % (AUTO) 90.1 %; MEAN CORPUSCULAR HEMOGLOBIN 29.3 pg (27.0-31.0); MEAN CORPUSCULAR HGB CONC 34.2 g/dL (32.0-36.0); MEAN CORPUSCULAR VOLUME 85.8 fL (81.0-99.0); MONOCYTES % (AUTO) 3.8 %; NEUTROPHILS % (AUTO) 1.8 %; RED BLOOD COUNT 2.32 10^6/uL (4.20-5.40); RED CELL DISTRIBUTION WIDTH 18.2 % (12.0-15.0)
[2022-12-19 05:29] LABS: HGB - HEMOGLOBIN 6.8 g/dL (12.0-16.0); WHITE BLOOD COUNT 1.8 x10^3/uL (4.8-10.8)
[2022-12-19 05:30] LABS: HCT - HEMATOCRIT 19.9 % (37.0-47.0); PLT - PLATELET COUNT 3 10^3/uL (130-450)
[2022-12-19 05:31] LABS: ABNORMAL LYMPHS % (MANUAL) 0 %; BAND NEUTROPHILS % (MANUAL) 0 %
[2022-12-19 05:42] LABS: ALBUMIN 3.2 g/dL (3.2-5.5); ALKALINE PHOSPHATASE 63 IU/L (42-121); ALT ALANINE AMINOTRANSFERASE 23 IU/L (10-60); AST ASPARTATE AMINOTRANSFERASE 18 IU/L (10-42); BILIRUBIN,TOTAL 0.4 mg/dL (0.2-1.0); BUN - BLOOD UREA NITROGEN 18 mg/dL (6-20); CALCIUM 8.9 mg/dL (8.5-10.3); CARBON DIOXIDE - CO2 27 mmol/L (21-32); CHLORIDE 103 mmol/L (101-111); CHOL/HDL RATIO 4.2 (<4.4); CHOLESTEROL 173 mg/dL; CREATININE 0.9 mg/dL (0.4-1.0); GFR - MDRD 67 (>89); GLUCOSE 201 mg/dL (70-100); HDL CHOLESTEROL 41 mg/dL; LDL CHOLESTEROL,CALCULATED 86 mg/dL; LDL/HDL RATIO 2.1 (<4.4); PHOSPHORUS 4.8 mg/dL (2.5-4.6); SODIUM 138 mmol/L (135-145); TOTAL PROTEIN 6.3 g/dL (6.7-8.2); TRIGLYCERIDES 230 mg/dL; VLDL CHOLESTEROL 46 mg/dL
[2022-12-19 05:47] LABS: BASOPHILS % (MANUAL) 1 %; EOSINOPHILS # (MANUAL) 0.1 10^3/uL (0-0.7); LYMPHOCYTES # (MANUAL) 1.6 10^3/uL (1.5-3.5); LYMPHOCYTES % (MANUAL) 91 %; MONOCYTES # (MANUAL) 0.1 10^3/uL (0.0-1.0)
[2022-12-19 05:48] LABS: DIFFERENTIAL COMMENT MANUAL DIFFERENTIAL; PLATELET ESTIMATE, MANUAL DECREASED (<130,000) (NORMAL); PLATELET MORPHOLOGY NORMAL APPEARANCE (NORMAL); RBC MORPHOLOGY (MULTIPLE) 2+ MICROCY (NORMAL); WBC MORPHOLOGY (MULTIPLE) NORMAL APPEARANCE (NORMAL)
--- NOTE | 2022-12-19 06:32 | PROVIDER PROGRESS NOTE ---
Shipper/Receiver Note - Shipper/Receiver Note Shipper/Receiver Note: Consult Information Member Facility: [facility] Facility Requesting Clinician: Leeann Lindsey Patient Name: Jane Bentley Date of : 1975 Gender: Female Reason for Consult Reason for Consult: Abnormal Lab Clinical Note Clinical Note: per rn - "Pt here for anemia/SOA Received 1 PRBC and is now starting platelet infusion Vital sign stable BP 118/70 HR 95 FYI on critical labs WBC 1.8 Hgb 6.8 Hct 19.9 Plt count 3 Neut 0" transfuse another 1 unit prbc
[2022-12-19] MEDS ORDERED: hydrOXYzine PAMOATE 25 MG CAPSULE PO PRN (07:01)
[2022-12-19] MEDS ORDERED: metFORMIN 500 MG TABLET PO SCH (08:00)
[2022-12-19] MEDS: FLUoxetine 10 MG CAPSULE PO SCH (08:36)
[2022-12-19] MEDS: ATORVASTATIN 10 MG TABLET PO SCH (08:37)
[2022-12-19] MEDS: ARIPiprazole 5 MG TABLET PO SCH ×2 (08:37→20:46)
[2022-12-19] MEDS: FUROSEMIDE 40 MG TABLET PO SCH (08:38)
[2022-12-19] MEDS: PROPRANOLOL 10 MG TABLET PO SCH ×2 (08:45→20:46)
[2022-12-19] MEDS ORDERED: ARIPiprazole 5 MG TABLET PO SCH (09:00)
[2022-12-19] MEDS: ACETAMINOPHEN 325 MG TABLET PO PRN ×2 (10:56→17:59)
[2022-12-19] MEDS: PANTOPRAZOLE 40 MG TABLET PO SCH (10:56)
[2022-12-19 11:22] LABS: ESTIMATED AVERAGE GLUCOSE 174 mg/dL (70-100); HEMOGLOBIN A1c% 7.7 % (4.27-6.07)
[2022-12-19] MEDS: INSULIN LISPRO 300 UNIT/3 ML PEN SUBQ SCH ×3 (11:46→20:45)
--- NOTE | 2022-12-19 12:45 | PHARMACY PROGRESS NOTE ---
- Best Possible Medication History Admit Date and Time: 12/19/22 0004 Processed by: Pharmacy Medication History completed: Yes Patient Interview: Completed Secondary Source(s): Pharmacy records, Insurance records As the person ultimately responsible for medication therapy, providers are able to order a medication from an existing home medication list in [facility] via the "Reconcile Routine" prior to Confirmation of that medication by software support technician. Such practice is discouraged except when the physician, in their clinical judgment, deems that a medical need exists for a medication without regard to previous use.
--- NOTE | 2022-12-19 14:50 | PROVIDER PROGRESS NOTE ---
Assessment/Plan - Problem List (1) Pancytopenia Assessment/Plan: - pancytopenia after patient had 1 unit of RBC, 1 unit of platelets, morning CBC showed patient's hemoglobin still is 6.8, platelets 3.0. with hx of small rectum bleeding, tele provider ask another one unit of RBC, and order another plt as we ll, recheck CBC on this afternoon. pt was likely Caused by patient's chemotherapy 10 days ago. Patient has no fever, we will continue CBC to monitor patient - blood per rectum likely related low plt and recent Chemotherapy. We was started protonix, continue H&H/CBC to monitor hemoglobin level. - bruising d/t above monitor, transfuse - diabetes Patient has history of diabetes, taking metformin at home, we will start him with a sliding scale, check A1c, started with hypoglycemia protocol. - CMT and complex regional pain syndrome at baseline, continue home meds - hx of NSCLC with advanced Metastatic feature Patient has no acute respiratory distress. pt was follow up with her oncologist Gerry Martin - Current Meds Current Meds: Current Medications Generic Name Dose Route Start Last Admin Trade Name Freq PRN Reason Stop Dose Admin Acetaminophen 650 mg 12/19/22 10:40 12/19/22 10:56 Acetaminophen 325 Mg Tablet PO 650 mg Q4HR PRN Administration Pain 1-4 or Fever > 38C Hydrocodone Bitart/Acetaminophen 1 tab 12/18/22 23:56 12/19/22 13:30 Hydrocod/Acetam 10 Mg/325 Mg Tablet PO 1 tab Q8H PRN Administration PAIN Aripiprazole 5 mg 12/19/22 09:00 12/19/22 08:37 Aripiprazole 5 Mg Tablet PO 5 mg DAILY EMRE Administration Atorvastatin Calcium 20 mg 12/19/22 09:00 12/19/22 08:37 Atorvastatin 10 Mg Tablet PO 20 mg DAILY EMRE Administration Fluoxetine HCl 80 mg 12/19/22 09:00 12/19/22 08:36 Fluoxetine 10 Mg Capsule PO 80 mg DAILY EMRE Administration Furosemide 20 mg 12/19/22 09:00 12/19/22 08:38 Furosemide 40 Mg Tablet PO 20 mg DAILY EMRE Administration Insulin Human Lispro 1 - 5 unit 12/19/22 12:00 12/19/22 11:46 Insulin Lispro 300 Unit/3 Ml Pen SUBQ 1 unit 0800,1200,1700,2100 EMRE Administration Protocol Lorazepam 0.5 mg 12/18/22 23:45 12/19/22 11:46 Lorazepam 0.5 Mg Tablet PO 0.5 mg Q6H EMRE Administration Pantoprazole Sodium 40 mg 12/19/22 11:00 12/19/22 10:56 Pantoprazole 40 Mg Tablet PO 40 mg QDAC EMRE Administration Pregabalin 100 mg 12/19/22 06:00 12/19/22 14:26 Pregabalin 100 Mg Capsule PO 100 mg TID EMRE Administration Pregabalin 50 mg 12/19/22 06:00 12/19/22 14:25 Pregabalin 25 Mg Capsule PO 50 mg TID EMRE Administration Propranolol HCl 10 mg 12/19/22 09:00 12/19/22 08:45 Propranolol 10 Mg Tablet PO 10 mg BID EMRE Administration Sodium Chloride 10 ml 12/19/22 00:04 12/19/22 04:28 Sodium Chloride Flush 0.9% 10 Ml Syringe IVP 10 ml PRN PRN Administration NEEDED PER PROVIDER ORDERS Sodium Chloride 10 ml 12/19/22 01:00 12/19/22 08:40 Sodium Chloride Flush 0.9% 10 Ml Syringe IVP 10 ml 0100,0900,1700 EMRE Administration - Lab Result Fish Bone Diagrams: 12/19/22 05:08 12/19/22 05:08 - Additional Planning My Orders: My Active Orders 12/19/22 09:27 Transfuse RBCs Leukoreduced [RC] .ONCE 12/19/22 09:30 Transfuse Platelet Pheresis Pk [RC] .ONCE 12/19/22 10:38 Blood Glucose Checks - Eating [RC] 0800,1200,1700,2100 Initiate Hypoglycemia Protocol [RC] .protocol 12/19/22 10:40 Acetaminophen [Tylenol] 650 mg PO Q4HR PRN 12/19/22 11:00 Pantoprazole [Protonix] 40 mg PO QDAC 12/19/22 12:00 Insulin Lispro [Humalog Kwikpen U-100] 1 - 5 unit SUBQ 0800,1200,1700,2100 12/19/22 17:00 CBC - COMP BLD CT W/AUTO DIFF [HEME] Timed 12/20/22 05:00 CBC - COMP BLD CT W/AUTO DIFF [HEME] DAILYLAB CMP [COMPREHENSIVE METABOLIC PANEL] [CHEM] DAILYLAB Subjective - Subjective Patient Reports: Feeling Better Objective Vital Signs: Vital Signs - 24 hr 12/18/22 12/18/22 12/18/22 21:01 23:21 23:36 Temperature 36.8 C 36.9 C 36.8 C Heart Rate 106 H Heart Rate [ 97 95 Apical] Heart Rate [ Brachial] Respiratory 18 16 16 Rate Blood Pressure 125/84 H Blood Pressure 119/66 121/75 [Right Brachial artery] O2 Saturation 100 98 99 12/19/22 12/19/22 12/19/22 01:06 03:07 03:26 Temperature 36.8 C 37.1 C Heart Rate 91 Heart Rate [ 105 H Apical] Heart Rate [ 99 Brachial] Respiratory 16 16 20 Rate Blood Pressure 127/81 H Blood Pressure 135/94 H 149/94 H [Right Brachial artery] O2 Saturation 100 97 96 12/19/22 12/19/22 12/19/22 05:25 05:40 07:57 Temperature 36.7 C 36.5 C 36.6 C Heart Rate Heart Rate [ Apical] Heart Rate [ 95 94 95 Brachial] Respiratory 20 18 18 Rate Blood Pressure Blood Pressure 118/70 141/85 H 123/67 [Right Brachial artery] O2 Saturation 97 96 100 12/19/22 12/19/22 12/19/22 11:22 11:25 11:30 Temperature 36.4 C L 36.6 C 36.6 C Heart Rate Heart Rate [ Apical] Heart Rate [ 87 95 95 Brachial] Respiratory 16 18 18 Rate Blood Pressure Blood Pressure 118/73 123/67 123/67 [Right Brachial artery] O2 Saturation 95 100 100 12/19/22 12/19/22 11:44 14:15 Temperature 36.6 C 36.3 C L Heart Rate Heart Rate [ Apical] Heart Rate [ 88 91 Brachial] Respiratory 16 18 Rate Blood Pressure Blood Pressure 117/70 123/73 [Right Brachial artery] O2 Saturation 98 96 Oxygen O2 Source Room air I&O (Last 24 Hrs): Intake and Output Totals x24h 12/17/22 12/18/22 12/19/22 23:59 23:59 23:59 Intake Total 0 2809 Balance 0 2809 General: Alert, Oriented x3 HEENT: Atraumatic Neck: Supple Lymphatic: no adenopathy Neuro: Alert, Non Focal, Oriented Times 3 Cardiovascular: Regular rate, Normal S1, Normal S2 Respiratory: Chest non-tender, No respiratory distress Abdomen: Normal bowel sounds, No tenderness Extremities: No clubbing - Results Results: Laboratory Results WBC 1.8 x10^3/uL (4.8-10.8) L* 12/19/22 05:08 RBC 2.32 10^6/uL (4.20-5.40) L 12/19/22 05:08 Hgb 6.8 g/dL (12.0-16.0) L* 12/19/22 05:08 Hct 19.9 % (37.0-47.0) L* 12/19/22 05:08 MCV 85.8 fL (81.0-99.0) 12/19/22 05:08 MCH 29.3 pg (27.0-31.0) 12/19/22 05:08 MCHC 34.2 g/dL (32.0-36.0) 12/19/22 05:08 RDW 18.2 % (12.0-15.0) H 12/19/22 05:08 Plt Count 3 10^3/uL (130-450) L* 12/19/22 05:08 MPV TNP 12/19/22 05:08 Neut # (Auto) Not Reportable 12/19/22 05:08 Lymph # (Auto) Not Reportable 12/19/22 05:08 [place] # (Auto) Not Reportable 12/19/22 05:08 Eos # (Auto) Not Reportable 12/19/22 05:08 Baso # (Auto) Not Reportable 12/19/22 05:08 Absolute Nucleated RBC Not Reportable 12/19/22 05:08 Total Counted 100 12/19/22 05:08 Band Neuts % (Manual) 0 % (0-10) 12/19/22 05:08 Abnorm Lymph % (Manual) 0 % 12/19/22 05:08 Nucleated RBC % Not Reportable 12/19/22 05:08 Neutrophils # (Manual) 0.0 10^3/uL (1.5-6.6) L* 12/19/22 05:08 Lymphocytes # (Manual) 1.6 10^3/uL (1.5-3.5) 12/19/22 05:08 Monocytes # (Manual) 0.1 10^3/uL (0.0-1.0) 12/19/22 05:08 Eosinophils # (Manual) 0.1 10^3/uL (0-0.7) 12/19/22 05:08 Basophils # (Manual) 0.0 10^3/uL (0-0.1) 12/19/22 05:08 Differential Comment MANUAL DIFFERENTIAL 12/19/22 05:08 WBC Morphology NORMAL APPEARANCE (NORMAL) 12/19/22 05:08 Platelet Estimate DECREASED (<130,000) (NORMAL) 12/19/22 05:08 Platelet Morphology NORMAL APPEARANCE (NORMAL) 12/19/22 05:08 RBC Morph Micro Appear 2+ MICROCY (NORMAL) 12/19/22 05:08 Sodium 138 mmol/L (135-145) 12/19/22 05:08 Potassium 4.0 mmol/L (3.5-5.0) 12/19/22 05:08 Chloride 103 mmol/L (101-111) 12/19/22 05:08 Carbon Dioxide 27 mmol/L (21-32) 12/19/22 05:08 Anion Gap 8.0 (6-13) 12/19/22 05:08 BUN 18 mg/dL (6-20) 12/19/22 05:08 Creatinine 0.9 mg/dL (0.4-1.0) 12/19/22 05:08 Estimated GFR (MDRD) 67 (>89) L 12/19/22 05:08 Glucose 201 mg/dL (70-100) H 12/19/22 05:08 POC Whole Bld Glucose 148 mg/dL (70 - 100) H 12/19/22 11:17 Estimat Average Glucose 174 mg/dL (70-100) H 12/19/22 05:08 Hemoglobin A1c % 7.7 % (4.27-6.07) H 12/19/22 05:08 Calcium 8.9 mg/dL (8.5-10.3) 12/19/22 05:08 Phosphorus 4.8 mg/dL (2.5-4.6) H 12/19/22 05:08 Total Bilirubin 0.4 mg/dL (0.2-1.0) 12/19/22 05:08 AST 18 IU/L (10-42) 12/19/22 05:08 ALT 23 IU/L (10-60) 12/19/22 05:08 Alkaline Phosphatase 63 IU/L (42-121) 12/19/22 05:08 Total Protein 6.3 g/dL (6.7-8.2) L 12/19/22 05:08 Albumin 3.2 g/dL (3.2-5.5) 12/19/22 05:08 Globulin 3.1 g/dL (2.1-4.2) 12/19/22 05:08 Albumin/Globulin Ratio 1.0 (1.0-2.2) 12/19/22 05:08 Triglycerides 230 mg/dL (-149) H 12/19/22 05:08 Cholesterol 173 mg/dL (-199) 12/19/22 05:08 LDL Cholesterol, Calc 86 mg/dL (-129) 12/19/22 05:08 VLDL Cholesterol 46 mg/dL 12/19/22 05:08 HDL Cholesterol 41 mg/dL (60-) L 12/19/22 05:08 LDL/HDL Ratio 2.1 (<4.4) 12/19/22 05:08 Cholesterol/HDL Ratio 4.2 (<4.4) 12/19/22 05:08 TSH 1.50 uIU/mL (0.34-5.60) 12/19/22 05:08 Blood Type A POSITIVE 12/18/22 21:31 Blood Type Recheck A POSITIVE 12/18/22 12:00 Antibody Screen NEGATIVE 12/18/22 21:31 Crossmatch IS Only See Detail 12/18/22 21:31 - Procedures Procedures: Procedures DETACHMENT AT LEFT FOOT, COMPLETE 5TH RAY, OPEN APPROACH (01/14/21) DETACHMENT AT RIGHT 5TH TOE, COMPLETE, OPEN APPROACH (03/15/22) ENDOSC POLYPECTOMY OF LG INTEST (08/29/13) ABX Reporting Has patient been on IV antibiotics over the past 48 hours?: No
[2022-12-19 17:11] LABS: EOSINOPHILS # (AUTO) 0.1 10^3/uL (0.0-0.7); EOSINOPHILS % (AUTO) 4.8 %; HCT - HEMATOCRIT 24.6 % (37.0-47.0); HGB - HEMOGLOBIN 8.4 g/dL (12.0-16.0); LYMPHOCYTES # (AUTO) 1.5 10^3/uL (1.5-3.5); LYMPHOCYTES % (AUTO) 86.9 %; MEAN CORPUSCULAR HEMOGLOBIN 28.4 pg (27.0-31.0); MEAN CORPUSCULAR HGB CONC 34.1 g/dL (32.0-36.0); MEAN CORPUSCULAR VOLUME 83.1 fL (81.0-99.0); MEAN PLATELET VOLUME 9.4 fL (7.9-10.8); MONOCYTES # (AUTO) 0.1 10^3/uL (0.0-1.0); MONOCYTES % (AUTO) 6.5 %; NEUTROPHILS % (AUTO) 1.2 %; NRBC ABSOLUTE COUNT (AUTO) 0.04 x10^3/uL; NUCLEATED RED BLOOD CELLS AUTO 2.4 /100WBC; PLT - PLATELET COUNT 68 10^3/uL (130-450); RED BLOOD COUNT 2.96 10^6/uL (4.20-5.40); RED CELL DISTRIBUTION WIDTH 18.5 % (12.0-15.0)
[2022-12-19 17:36] LABS: WHITE BLOOD COUNT 1.7 x10^3/uL (4.8-10.8)
[2022-12-19 17:37] LABS: SLIDE REVIEW? Indicated
[2022-12-19 18:09] LABS: PLATELET ESTIMATE, MANUAL DECREASED (<130,000) (NORMAL); PLATELET MORPHOLOGY NORMAL APPEARANCE (NORMAL); RBC MORPHOLOGY (MULTIPLE) 1+ ANISOCYTOSIS (NORMAL)
[2022-12-19 18:10] LABS: DIFFERENTIAL COMMENT MANUAL=AUTO DIFF
[2022-12-19] MEDS: cloNIDine 0.1 MG TABLET PO SCH (20:46)
[2022-12-19] MEDS: NYSTATIN POWDER 15 GM TOP SCH (21:42)
[2022-12-20] MEDS: SODIUM CHLORIDE FLUSH 0.9% 10 ML SYRINGE IVP PRN (00:04)
[2022-12-20] MEDS: LORazepam 0.5 MG TABLET PO SCH ×4 (00:04→16:09)
[2022-12-20] MEDS: SODIUM CHLORIDE FLUSH 0.9% 10 ML SYRINGE IVP SCH ×3 (01:26→16:11)
[2022-12-20] MEDS: HYDROcod/ACETAM 10 MG/325 MG TABLET PO PRN ×5 (02:24→21:54)
[2022-12-20 05:30] LABS: BASOPHILS % (AUTO) 0.7 %; EOSINOPHILS % (AUTO) 5.4 %; HCT - HEMATOCRIT 23.4 % (37.0-47.0); HGB - HEMOGLOBIN 7.9 g/dL (12.0-16.0); LYMPHOCYTES % (AUTO) 83.7 %; MEAN CORPUSCULAR HEMOGLOBIN 28.4 pg (27.0-31.0); MEAN CORPUSCULAR HGB CONC 33.8 g/dL (32.0-36.0); MEAN CORPUSCULAR VOLUME 84.2 fL (81.0-99.0); MEAN PLATELET VOLUME 10.5 fL (7.9-10.8); MONOCYTES % (AUTO) 7.5 %; PLT - PLATELET COUNT 66 10^3/uL (130-450); RED BLOOD COUNT 2.78 10^6/uL (4.20-5.40)
[2022-12-20 05:35] LABS: WHITE BLOOD COUNT 1.5 x10^3/uL (4.8-10.8)
[2022-12-20 05:37] LABS: ABNORMAL LYMPHS % (MANUAL) 0 %; BAND NEUTROPHILS % (MANUAL) 0 %
[2022-12-20 05:43] LABS: ALBUMIN 3.4 g/dL (3.2-5.5); BILIRUBIN,TOTAL 0.5 mg/dL (0.2-1.0); CALCIUM 8.9 mg/dL (8.5-10.3); CREATININE 0.9 mg/dL (0.4-1.0); POTASSIUM 3.6 mmol/L (3.5-5.0); TOTAL PROTEIN 6.9 g/dL (6.7-8.2)
[2022-12-20 05:54] LABS: EOSINOPHILS # (MANUAL) 0.1 10^3/uL (0-0.7); LYMPHOCYTES # (MANUAL) 1.3 10^3/uL (1.5-3.5); LYMPHOCYTES % (MANUAL) 87 %; MONOCYTES # (MANUAL) 0.1 10^3/uL (0.0-1.0); MYELOCYTES % (MANUAL) 1 %; NUCLEATED RBC (MANUAL) 1 %
[2022-12-20] MEDS: PREGABALIN 25 MG CAPSULE PO SCH ×3 (05:54→21:53)
[2022-12-20 05:55] LABS: DIFFERENTIAL COMMENT MANUAL DIFFERENTIAL; PLATELET ESTIMATE, MANUAL DECREASED (<130,000) (NORMAL); PLATELET MORPHOLOGY NORMAL APPEARANCE (NORMAL); RBC MORPHOLOGY (MULTIPLE) 2+ ANISOCYTOSIS (NORMAL); WBC MORPHOLOGY (MULTIPLE) NORMAL APPEARANCE (NORMAL)
[2022-12-20] MEDS: PANTOPRAZOLE 40 MG TABLET PO SCH (05:55)
[2022-12-20] MEDS: PREGABALIN 100 MG CAPSULE PO SCH ×3 (05:55→21:54)
[2022-12-20] MEDS: PROPRANOLOL 10 MG TABLET PO SCH ×2 (08:11→21:54)
[2022-12-20] MEDS: ATORVASTATIN 10 MG TABLET PO SCH (08:12)
[2022-12-20] MEDS: FLUoxetine 10 MG CAPSULE PO SCH (08:12)
[2022-12-20] MEDS: FUROSEMIDE 40 MG TABLET PO SCH (08:13)
[2022-12-20] MEDS: INSULIN LISPRO 300 UNIT/3 ML PEN SUBQ SCH ×4 (08:14→21:54)
[2022-12-20] MEDS: ARIPiprazole 5 MG TABLET PO SCH ×2 (08:24→22:08)
[2022-12-20] MEDS: NYSTATIN POWDER 15 GM TOP SCH ×2 (08:25→21:58)
[2022-12-20] MEDS ORDERED: TBO-FILGRASTIM 480 MCG/0.8 ML SYRINGE SUBQ ONE (12:00)
[2022-12-20 13:18] LABS: FECAL OCCULT BLOOD (FIT) NEGATIVE (NEGATIVE)
--- NOTE | 2022-12-20 13:25 | PROVIDER PROGRESS NOTE ---
Assessment/Plan - Problem List (1) Pancytopenia Assessment/Plan: (1) Pancytopenia Assessment/Plan: - pancytopenia After the patient had 2 units RBCs, 2 units of platelets, patient had a hemoglobin of 7.9 and platelets 66,000. but patient's WBC still continue trending down from 1.8 to 1.5, and Neutrophil was undetected. I tried to call patient's on-call oncologist Dr. Edda Diamond three times, But unfortunately no one picked up phone. although pt has no fever but WBC continue trending down with hx of advanced lung cancer and long hx of smoker, with hx of immune suppression, and pt agree to have G-CSF. We will continue laboratory monitoring, continue closely monitor vital signs. - blood per rectum improved. pt report she did not see bleeding or blood clots in her bowel movement. likely related low plt and recent Chemotherapy. We was started protonix, continue H&H/CBC to monitor hemoglobin level. - bruising d/t above monitor, transfuse - diabetes Patient has history of diabetes, taking metformin at home, we will start him with a sliding scale, check A1c, started with hypoglycemia protocol. - CMT and complex regional pain syndrome at baseline, continue home meds - hx of NSCLC with advanced Metastatic feature Patient has no acute respiratory distress. pt had an appointment to follow up with her oncologist Gerry Martin on 12/25/22. - Current Meds Current Meds: Current Medications Generic Name Dose Route Start Last Admin Trade Name Freq PRN Reason Stop Dose Admin Acetaminophen 650 mg 12/19/22 10:40 12/19/22 17:59 Acetaminophen 325 Mg Tablet PO 650 mg Q4HR PRN Administration Pain 1-4 or Fever > 38C Hydrocodone Bitart/Acetaminophen 1 tab 12/19/22 18:28 12/20/22 12:33 Hydrocod/Acetam 10 Mg/325 Mg Tablet PO 1 tab Q4H PRN Administration PAIN 5-7 Aripiprazole 5 mg 12/19/22 09:00 12/20/22 08:24 Aripiprazole 5 Mg Tablet PO 5 mg DAILY EMRE Administration Aripiprazole 10 mg 12/19/22 21:00 12/19/22 20:46 Aripiprazole 5 Mg Tablet PO 10 mg HS EMRE Administration Atorvastatin Calcium 20 mg 12/19/22 09:00 12/20/22 08:12 Atorvastatin 10 Mg Tablet PO 20 mg DAILY EMRE Administration Clonidine HCl 0.1 mg 12/19/22 21:00 12/19/22 20:46 Clonidine 0.1 Mg Tablet PO 0.1 mg QPM EMRE Administration Fluoxetine HCl 80 mg 12/19/22 09:00 12/20/22 08:12 Fluoxetine 10 Mg Capsule PO 80 mg DAILY EMRE Administration Furosemide 20 mg 12/19/22 09:00 12/20/22 08:13 Furosemide 40 Mg Tablet PO 20 mg DAILY EMRE Administration Insulin Human Lispro 1 - 5 unit 12/19/22 12:00 12/20/22 12:18 Insulin Lispro 300 Unit/3 Ml Pen SUBQ 1 unit 0800,1200,1700,2100 EMRE Administration Protocol Lorazepam 0.5 mg 12/18/22 23:45 12/20/22 12:24 Lorazepam 0.5 Mg Tablet PO 0.5 mg Q6H EMRE Administration Nystatin 2 applic 12/19/22 21:00 12/20/22 08:25 Nystatin Powder 15 Gm TOP 2 applic BID EMRE Administration Pantoprazole Sodium 40 mg 12/19/22 11:00 12/20/22 05:55 Pantoprazole 40 Mg Tablet PO 40 mg QDAC EMRE Administration Pregabalin 100 mg 12/19/22 06:00 12/20/22 05:55 Pregabalin 100 Mg Capsule PO 100 mg TID EMRE Administration Pregabalin 50 mg 12/19/22 06:00 12/20/22 05:54 Pregabalin 25 Mg Capsule PO 50 mg TID EMRE Administration Propranolol HCl 10 mg 12/19/22 09:00 12/20/22 08:11 Propranolol 10 Mg Tablet PO 10 mg BID EMRE Administration Sodium Chloride 10 ml 12/19/22 00:04 12/20/22 00:04 Sodium Chloride Flush 0.9% 10 Ml Syringe IVP 10 ml PRN PRN Administration NEEDED PER PROVIDER ORDERS Sodium Chloride 10 ml 12/19/22 01:00 12/20/22 08:24 Sodium Chloride Flush 0.9% 10 Ml Syringe IVP 10 ml 0100,0900,1700 EMRE Administration - Lab Result Fish Bone Diagrams: 12/20/22 05:05 12/20/22 05:05 - Additional Planning My Orders: My Active Orders 12/19/22 18:28 HYDROcodone/ACET 10/325 [[place] 10 mg/325 mg] 1 tab PO Q4H PRN 12/19/22 21:00 Nystatin [Nystop] 2 applic TOP BID 12/20/22 Lunch Neutropenic (Low Microbial) Diet [DIET] 12/20/22 19:00 H&H [HEMOGLOBIN AND HEMATOCRIT] [HEME] Timed 12/21/22 05:00 BMP - BASIC METABOLIC PANEL [CHEM] DAILYLAB CBC - COMP BLD CT W/AUTO DIFF [HEME] DAILYLAB Subjective - Subjective Patient Reports: Feeling Better Objective Vital Signs: Vital Signs - 24 hr 12/19/22 12/19/22 12/19/22 14:15 15:22 16:08 Temperature 36.3 C L 36.1 C L 36.4 C L Heart Rate [ 91 88 91 Brachial] Respiratory 18 16 16 Rate Blood Pressure 123/73 134/72 H 134/72 H [Right Brachial artery] O2 Saturation 96 96 96 12/19/22 12/19/22 12/20/22 16:48 19:50 01:02 Temperature 36.1 C L 36.5 C 36.2 C L Heart Rate [ 92 96 85 Brachial] Respiratory 16 16 12 Rate Blood Pressure 118/76 133/71 H 121/65 [Right Brachial artery] O2 Saturation 96 95 93 12/20/22 12/20/22 07:25 11:14 Temperature 36.8 C 36.3 C L Heart Rate [ 91 85 Brachial] Respiratory 16 16 Rate Blood Pressure 114/80 112/78 [Right Brachial artery] O2 Saturation 95 92 Oxygen O2 Source Room air I&O (Last 24 Hrs): Intake and Output Totals x24h 12/18/22 12/19/22 12/20/22 23:59 23:59 23:59 Intake Total 0 3734 930 Balance 0 3734 930 General: Alert, Oriented x3, Cooperative HEENT: Atraumatic Neck: Supple Neuro: Alert, Non Focal, Oriented Times 3 Cardiovascular: Regular rate, Normal S1, Normal S2 Respiratory: Chest non-tender, No respiratory distress Abdomen: Normal bowel sounds, Soft Extremities: No clubbing Skin: No rashes - Results Results: Laboratory Results WBC 1.5 x10^3/uL (4.8-10.8) L* 12/20/22 05:05 RBC 2.78 10^6/uL (4.20-5.40) L 12/20/22 05:05 Hgb 7.9 g/dL (12.0-16.0) L 12/20/22 05:05 Hct 23.4 % (37.0-47.0) L 12/20/22 05:05 MCV 84.2 fL (81.0-99.0) 12/20/22 05:05 MCH 28.4 pg (27.0-31.0) 12/20/22 05:05 MCHC 33.8 g/dL (32.0-36.0) 12/20/22 05:05 RDW 19.0 % (12.0-15.0) H 12/20/22 05:05 Plt Count 66 10^3/uL (130-450) L 12/20/22 05:05 MPV 10.5 fL (7.9-10.8) 12/20/22 05:05 Neut # (Auto) Not Reportable 12/20/22 05:05 Lymph # (Auto) Not Reportable 12/20/22 05:05 [place] # (Auto) Not Reportable 12/20/22 05:05 Eos # (Auto) Not Reportable 12/20/22 05:05 Baso # (Auto) Not Reportable 12/20/22 05:05 Absolute Nucleated RBC Not Reportable 12/20/22 05:05 Total Counted 100 12/20/22 05:05 Band Neuts % (Manual) 0 % (0-10) 12/20/22 05:05 Abnorm Lymph % (Manual) 0 % 12/20/22 05:05 Myelocytes % 1 % (-0) H 12/20/22 05:05 Nucleated RBC % Not Reportable 12/20/22 05:05 Neutrophils # (Manual) 0.0 10^3/uL (1.5-6.6) L* 12/20/22 05:05 Lymphocytes # (Manual) 1.3 10^3/uL (1.5-3.5) L 12/20/22 05:05 Monocytes # (Manual) 0.1 10^3/uL (0.0-1.0) 12/20/22 05:05 Eosinophils # (Manual) 0.1 10^3/uL (0-0.7) 12/20/22 05:05 Basophils # (Manual) 0.0 10^3/uL (0-0.1) 12/20/22 05:05 Nucleated RBCs 1 % 12/20/22 05:05 Differential Comment MANUAL DIFFERENTIAL 12/20/22 05:05 Manual Slide Review Indicated 12/19/22 17:02 WBC Morphology NORMAL APPEARANCE (NORMAL) 12/20/22 05:05 Platelet Estimate DECREASED (<130,000) (NORMAL) 12/20/22 05:05 Platelet Morphology NORMAL APPEARANCE (NORMAL) 12/20/22 05:05 RBC Morph Micro Appear 2+ ANISOCYTOSIS (NORMAL) 12/20/22 05:05 Sodium 136 mmol/L (135-145) 12/20/22 05:05 Potassium 3.6 mmol/L (3.5-5.0) 12/20/22 05:05 Chloride 98 mmol/L (101-111) L 12/20/22 05:05 Carbon Dioxide 30 mmol/L (21-32) 12/20/22 05:05 Anion Gap 8.0 (6-13) 12/20/22 05:05 BUN 20 mg/dL (6-20) 12/20/22 05:05 Creatinine 0.9 mg/dL (0.4-1.0) 12/20/22 05:05 Estimated GFR (MDRD) 67 (>89) L 12/20/22 05:05 Glucose 153 mg/dL (70-100) H 12/20/22 05:05 POC Whole Bld Glucose 146 mg/dL (70 - 100) H 12/20/22 11:07 Estimat Average Glucose 174 mg/dL (70-100) H 12/19/22 05:08 Hemoglobin A1c % 7.7 % (4.27-6.07) H 12/19/22 05:08 Calcium 8.9 mg/dL (8.5-10.3) 12/20/22 05:05 Phosphorus 4.8 mg/dL (2.5-4.6) H 12/19/22 05:08 Total Bilirubin 0.5 mg/dL (0.2-1.0) 12/20/22 05:05 AST 20 IU/L (10-42) 12/20/22 05:05 ALT 25 IU/L (10-60) 12/20/22 05:05 Alkaline Phosphatase 80 IU/L (42-121) 12/20/22 05:05 Total Protein 6.9 g/dL (6.7-8.2) 12/20/22 05:05 Albumin 3.4 g/dL (3.2-5.5) 12/20/22 05:05 Globulin 3.5 g/dL (2.1-4.2) 12/20/22 05:05 Albumin/Globulin Ratio 1.0 (1.0-2.2) 12/20/22 05:05 Triglycerides 230 mg/dL (-149) H 12/19/22 05:08 Cholesterol 173 mg/dL (-199) 12/19/22 05:08 LDL Cholesterol, Calc 86 mg/dL (-129) 12/19/22 05:08 VLDL Cholesterol 46 mg/dL 12/19/22 05:08 HDL Cholesterol 41 mg/dL (60-) L 12/19/22 05:08 LDL/HDL Ratio 2.1 (<4.4) 12/19/22 05:08 Cholesterol/HDL Ratio 4.2 (<4.4) 12/19/22 05:08 TSH 1.50 uIU/mL (0.34-5.60) 12/19/22 05:08 Blood Type A POSITIVE 12/18/22 21:31 Blood Type Recheck A POSITIVE 12/18/22 12:00 Antibody Screen NEGATIVE 12/18/22 21:31 Crossmatch IS Only See Detail 12/18/22 21:31 - Procedures Procedures: Procedures DETACHMENT AT LEFT FOOT, COMPLETE 5TH RAY, OPEN APPROACH (01/14/21) DETACHMENT AT RIGHT 5TH TOE, COMPLETE, OPEN APPROACH (03/15/22) ENDOSC POLYPECTOMY OF LG INTEST (08/29/13) ABX Reporting Has patient been on IV antibiotics over the past 48 hours?: No Current Medications - Current Medications Current Medications: Active Medications Acetaminophen (Acetaminophen 325 Mg Tablet) 650 mg PO Q4HR PRN PRN Reason: Pain 1-4 or Fever > 38C Last Admin: 12/19/22 17:59 Dose: 650 mg Hydrocodone Bitart/Acetaminophen (Hydrocod/Acetam 10 Mg/325 Mg Tablet) 1 tab PO Q4H PRN PRN Reason: PAIN 5-7 Last Admin: 12/20/22 12:33 Dose: 1 tab Albuterol (Albuterol Neb 2.5 Mg/3 Ml) 2.5 mg INH RTQ4H PRN PRN Reason: Wheezing Aripiprazole (Aripiprazole 5 Mg Tablet) 5 mg PO DAILY [facility] Last Admin: 12/20/22 08:24 Dose: 5 mg Aripiprazole (Aripiprazole 5 Mg Tablet) 10 mg PO HS [facility] Last Admin: 12/19/22 20:46 Dose: 10 mg Atorvastatin Calcium (Atorvastatin 10 Mg Tablet) 20 mg PO DAILY [facility] Last Admin: 12/20/22 08:12 Dose: 20 mg Clonidine HCl (Clonidine 0.1 Mg Tablet) 0.1 mg PO QPM [facility] Last Admin: 12/19/22 20:46 Dose: 0.1 mg Fluoxetine HCl (Fluoxetine 10 Mg Capsule) 80 mg PO DAILY [facility] Last Admin: 12/20/22 08:12 Dose: 80 mg Furosemide (Furosemide 40 Mg Tablet) 20 mg PO DAILY [facility] Last Admin: 12/20/22 08:13 Dose: 20 mg Hydroxyzine Pamoate (Hydroxyzine Pamoate 25 Mg Capsule) 50 mg PO BID PRN PRN Reason: NEEDED PER PROVIDER ORDERS Insulin Human Lispro (Insulin Lispro 300 Unit/3 Ml Pen) 1 - 5 unit SUBQ 0800,1200,1700,2100 [facility]; Protocol Last Admin: 12/20/22 12:18 Dose: 1 unit Lorazepam (Lorazepam 0.5 Mg Tablet) 0.5 mg PO Q6H [facility] Last Admin: 12/20/22 12:24 Dose: 0.5 mg Nystatin (Nystatin Powder 15 Gm) 2 applic TOP BID [facility] Last Admin: 12/20/22 08:25 Dose: 2 applic Ondansetron HCl (Ondansetron Odt 4 Mg Tablet) 4 mg TL Q6HR PRN PRN Reason: Nausea / Vomiting Pantoprazole Sodium (Pantoprazole 40 Mg Tablet) 40 mg PO QDAC [facility] Last Admin: 12/20/22 05:55 Dose: 40 mg Pregabalin (Pregabalin 100 Mg Capsule) 100 mg PO TID [facility] Last Admin: 12/20/22 05:55 Dose: 100 mg Pregabalin (Pregabalin 25 Mg Capsule) 50 mg PO TID [facility] Last Admin: 12/20/22 05:54 Dose: 50 mg Propranolol HCl (Propranolol 10 Mg Tablet) 10 mg PO BID [facility] Last Admin: 12/20/22 08:11 Dose: 10 mg Senna (Senna 8.6 Mg Tablet) 17.2 mg PO PRN PRN PRN Reason: PAIN 1-4 Sodium Chloride (Sodium Chloride Flush 0.9% 10 Ml Syringe) 10 ml IVP PRN PRN PRN Reason: NEEDED PER PROVIDER ORDERS Last Admin: 12/20/22 00:04 Dose: 10 ml Sodium Chloride (Sodium Chloride Flush 0.9% 10 Ml Syringe) 10 ml IVP 0100,0900,1700 EMRE Last Admin: 12/20/22 08:24 Dose: 10 ml ARIPiprazole [Abilify] 15 mg PO DAILY 05/13/13 Pregabalin [Lyrica] 150 mg PO BID 08/28/13 Fluoxetine HCl [Prozac] 80 mg PO QPM 12/11/20 cloNIDine HCL [Clonidine HCl ER] 0.1 mg PO QPM 12/29/20 Atorvastatin [Lipitor] 20 mg PO QPM 03/14/22 Hydrocodone/Acetaminophen [Hydrocodone-Acetamin 10-325 mg] 1 each PO Q6HR PRN 12/13/22 LORazepam [Ativan] 0.5 mg PO Q6H PRN 12/13/22 Propranolol [Inderal] 10 mg PO BID 12/13/22 Senna [Senokot] 17.2 mg PO DAILY PRN 12/13/22 Cannabis Gummies 1 each PO Q6H PRN 12/19/22 Hydromorphone HCl 2 mg PO Q4H PRN 12/19/22 metFORMIN [Glucophage] 1,000 mg PO BID 12/19/22
[2022-12-20 19:22] LABS: HCT - HEMATOCRIT 23.1 % (37.0-47.0); HGB - HEMOGLOBIN 7.9 g/dL (12.0-16.0)
[2022-12-20] MEDS: cloNIDine 0.1 MG TABLET PO SCH (21:54)
[2022-12-21] MEDS: LORazepam 0.5 MG TABLET PO SCH ×3 (00:03→12:17)
[2022-12-21] MEDS: SODIUM CHLORIDE FLUSH 0.9% 10 ML SYRINGE IVP SCH ×2 (00:24→08:43)
[2022-12-21] MEDS: HYDROcod/ACETAM 10 MG/325 MG TABLET PO PRN (02:01)
[2022-12-21 05:39] LABS: BASOPHILS % (AUTO) 0.9 %; EOSINOPHILS % (AUTO) 2.3 %; HCT - HEMATOCRIT 25.9 % (37.0-47.0); HGB - HEMOGLOBIN 8.7 g/dL (12.0-16.0); LYMPHOCYTES % (AUTO) 59.8 %; MEAN CORPUSCULAR HEMOGLOBIN 28.5 pg (27.0-31.0); MEAN CORPUSCULAR HGB CONC 33.6 g/dL (32.0-36.0); MEAN CORPUSCULAR VOLUME 84.9 fL (81.0-99.0); MEAN PLATELET VOLUME 10.5 fL (7.9-10.8); MONOCYTES % (AUTO) 11.3 %; NEUTROPHILS % (AUTO) 23.7 %; PLT - PLATELET COUNT 54 10^3/uL (130-450); RED BLOOD COUNT 3.05 10^6/uL (4.20-5.40); RED CELL DISTRIBUTION WIDTH 18.6 % (12.0-15.0); WHITE BLOOD COUNT 3.5 x10^3/uL (4.8-10.8)
[2022-12-21 05:43] LABS: ABNORMAL LYMPHS % (MANUAL) 0 %
[2022-12-21 05:46] LABS: CALCIUM 9.3 mg/dL (8.5-10.3); CREATININE 1.1 mg/dL (0.4-1.0); POTASSIUM 3.8 mmol/L (3.5-5.0)
[2022-12-21] MEDS: PANTOPRAZOLE 40 MG TABLET PO SCH ×2 (05:52→08:43)
[2022-12-21] MEDS: PREGABALIN 25 MG CAPSULE PO SCH (05:52)
[2022-12-21] MEDS: PREGABALIN 100 MG CAPSULE PO SCH (05:52)
[2022-12-21 05:53] LABS: BAND NEUTROPHILS % (MANUAL) 11 %; BASOPHILS % (MANUAL) 1 %; EOSINOPHILS # (MANUAL) 0.1 10^3/uL (0-0.7); LYMPHOCYTES # (MANUAL) 2.2 10^3/uL (1.5-3.5); LYMPHOCYTES % (MANUAL) 63 %; METAMYELOCYTES % (MANUAL) 2 %; MONOCYTES # (MANUAL) 0.3 10^3/uL (0.0-1.0); MYELOCYTES % (MANUAL) 1 %; NUCLEATED RBC (MANUAL) 4 %
[2022-12-21 05:55] LABS: DIFFERENTIAL COMMENT MANUAL DIFFERENTIAL; PLATELET ESTIMATE, MANUAL DECREASED (<130,000) (NORMAL); PLATELET MORPHOLOGY NORMAL APPEARANCE (NORMAL); RBC MORPHOLOGY (MULTIPLE) 2+ ANISOCYTOSIS (NORMAL); WBC MORPHOLOGY (MULTIPLE) NORMAL APPEARANCE (NORMAL)
[2022-12-21 05:56] LABS: NEUTROPHILS # (MANUAL) 0.8 10^3/uL (1.5-6.6)
[2022-12-21 08:11] VITALS: BP 124/65
[2022-12-21] MEDS: ARIPiprazole 5 MG TABLET PO SCH (08:42)
[2022-12-21] MEDS: INSULIN LISPRO 300 UNIT/3 ML PEN SUBQ SCH ×2 (08:42→12:17)
[2022-12-21] MEDS: FUROSEMIDE 40 MG TABLET PO SCH (08:42)
[2022-12-21] MEDS: ATORVASTATIN 10 MG TABLET PO SCH (08:42)
[2022-12-21] MEDS: FLUoxetine 10 MG CAPSULE PO SCH (08:43)
[2022-12-21] MEDS: PROPRANOLOL 10 MG TABLET PO SCH (08:47)
[2022-12-21] MEDS: NYSTATIN POWDER 15 GM TOP SCH (08:50)
--- NOTE | 2022-12-21 10:33 | Discharge Plan ---
Discharge Plan Problem Reviewed?: Yes Disposition: Home, Self Care Condition: Stable Prescriptions: Albuterol Sulf [Ventolin Hfa Inhaler] 1 - 2 puffs INH Q4HR PRN #18 gm PRN Reason: Shortness Of Air/Wheezing Pantoprazole [Protonix] 40 mg PO QDAC #30 tab Diet: Diabetic Activity Restrictions: Activity as Tolerated Shower Restrictions: No Health Concerns: you have no more GI bleed which was likely related to your significant low platelet and your Chemotherapy. You have RBC and Plt transfused at hospital. Now your HGB and Plt are stable, and your WBC is increasing. You are prescribed Protonix for protection of your GI, and albuterol inhaler for improving your breathing. You may follow-up with your oncology appointment at your scheduled time on next week, and Follow-up with your primary care in 1 to 2 weeks. Should your symptoms return or worsen, you may present to the ER or call 911 for help Assessment: Discussed the care plan and care goal with you, you verbally stated understanding No Smoking: If you smoke, Please STOP! Call for help. Follow-up with: Meena Tejada PA-C [Primary Care Provider] -
--- NOTE | 2022-12-21 11:00 | DISCHARGE SUMMARY ---
Discharge Summary Admit Date: 12/18/22 Discharge Date: 12/21/22 Discharging Provider: REDMOND Condition at Discharge: Stable Discharge Disposition: 01 Home, Self Care Discharge Facility Name: home - DIAGNOSES Discharge Diagnoses with Status of Each Condition: pancytopenia improved significantly.Patient's hemoglobin is 8.7, platelets is 54, WBC 3.5. pt has no more GI bleed - blood per rectum resolved - bruising improved, plt is 54 - diabetes stable - CMT and complex regional pain syndrome stable - hx of NSCLC with advanced Metastatic feature Patient has no acute respiratory distress. pt had an appointment to follow up with her oncologist Gerry Martin on . - HPI History of Present Illness: refer from Dr. Huff's HPI on 12/18/22 "pt presents to hospital after being seen in urgent care for easy bruising and noted to have low hgb (6.7) and plt (3K) counts. she does feel tired but denies any other symptoms. no fevers, chills, chest pain. she is currently undergoing chemotherapy and immunotherapy for NSCLC and has h/o CMT disease. no falls reported. she did also report noticing a small amount of blood on toilet paper when wiping but denies any melena or familia blood in stool. no sob. no dysuria or hematuria. no abdominal pain. no falls. no dizziness. no confusion." - HOSPITAL COURSE Hospital Course: Patient was admitted for GI bleed and skin bruising. Patient had chemotherapy and immunotherapy around 10 days ago. Patient was found to have severe pancytopenia after chemotherapy. Patient's Platelets was 3, hemoglobin 6.8, WBC 1.8. Patient's oncologist was called by the ER, patient was given 2 units of RBC, 2 units of platelets, patient was also treated with Neupogen. Then patient's hemoglobin, platelets, WBC become stable. Patient had no more GI bleeding. Patient has no fever or chill at hospital. Patient ambulated at hallway without distress. - ALLERGIES Allergies/Adverse Reactions: Allergies Allergy/AdvReac Type Severity Reaction Status Date / Time oxycodone Allergy Unknown Verified 08/30/22 08:37 oxycodone HCl * Allergy Unknown Verified 08/30/22 08:37 [From Percocet] ziprasidone [From Geodon] Allergy Hallucinati Verified 08/30/22 08:37 ons codeine [Codeine] AdvReac Severe Rash Verified 08/30/22 08:37 - MEDICATIONS Home Medications: Ambulatory Orders Medication Instructions Recorded Confirmed ARIPiprazole [Abilify] 15 mg PO DAILY 05/13/13 12/19/22 Pregabalin [Lyrica] 150 mg PO BID 08/28/13 12/19/22 Fluoxetine HCl [Prozac] 80 mg PO QPM 12/11/20 12/19/22 cloNIDine HCL [Clonidine HCl ER] 0.1 mg PO QPM 12/29/20 12/19/22 Atorvastatin [Lipitor] 20 mg PO QPM 03/14/22 12/19/22 Hydrocodone/Acetaminophen 1 each PO Q6HR PRN 12/13/22 12/19/22 [Hydrocodone-Acetamin 10-325 mg] LORazepam [Ativan] 0.5 mg PO Q6H PRN 12/13/22 12/19/22 Propranolol [Inderal] 10 mg PO BID 12/13/22 12/19/22 Senna [Senokot] 17.2 mg PO DAILY PRN 12/13/22 12/19/22 Cannabis Gummies 1 each PO Q6H PRN 12/19/22 12/19/22 Hydromorphone HCl 2 mg PO Q4H PRN 12/19/22 12/19/22 metFORMIN [Glucophage] 1,000 mg PO BID 12/19/22 12/19/22 Albuterol Sulf [Ventolin Hfa 1 - 2 puffs INH Q4HR PRN #18 gm 12/21/22 Inhaler] Pantoprazole [Protonix] 40 mg PO QDAC #30 tab 12/21/22 - PHYSICAL EXAM AT DISCHARGE General Appearance: positive: No acute distress, Alert Eyes Bilateral: positive: Normal inspection ENT: positive: ENT inspection nml Neck: positive: Nml inspection, Trachea midline Respiratory: positive: Chest non-tender, No respiratory distress Cardiovascular: positive: Regular rate & rhythm, No murmur Peripheral Pulses: positive: 2+ Abdomen: positive: Non-tender, No distention Back: positive: Nml inspection Skin: positive: Color nml, No rash Extremities: positive: Non-tender, Full ROM Neurologic/Psychiatric: positive: Oriented x3, Motor nml, Sensation nml - LABS Result Diagrams: 12/21/22 05:30 12/21/22 05:30 - FOLLOW UP Follow Up: Patient will follow-up with her oncologist 12/25, follow-up with her PCP in 1 to 2 weeks - TIME SPENT Time Spent in Discharge (Minutes): 30
[2022-12-21] MEDS ORDERED: TBO-FILGRASTIM 480 MCG/0.8 ML SYRINGE SUBQ ONE (13:00)
== END 2022-12-21 12:10 | disposition home or self-care (01) | DRG 809 ==
LOC: ED 20:55 → MS2 12-19 00:04 → OBSVTOIN 12-20 13:26
PROVIDERS: ADMIT Student in an Organized Health Care Education/Training Program; ATTEND Nurse Practitioner Gerontology
DX: D61.810 Antineoplastic chemotherapy induced pancytopenia (principal); C34.90 Malignant neoplasm of unspecified part of unspecified bronchus or lung; K62.5 Hemorrhage of anus and rectum; G90.50 Complex regional pain syndrome I, unspecified; G90.522 Complex regional pain syndrome I of left lower limb; C79.51 Secondary malignant neoplasm of bone; R58 Hemorrhage, not elsewhere classified; G60.0 Hereditary motor and sensory neuropathy; E11.9 Type 2 diabetes mellitus without complications; Z79.84 Long term (current) use of oral hypoglycemic drugs; T45.1X5A Adverse effect of antineoplastic and immunosuppressive drugs, initial encounter; Z87.891 Personal history of nicotine dependence; J44.9 Chronic obstructive pulmonary disease, unspecified; E78.00 Pure hypercholesterolemia, unspecified; F32.A Depression, unspecified; R53.83 Other fatigue
CPT/HCPCS: 36415; 36430; 80048; 80053; 80061; 82274; 83036; 83735; 84100; 84443; 85014; 85018; 85025; 86850; 86900; 86901; 86920; 96372; 96374; 99284; 99285; A9270; G0378; J1170; J1447; P9016; P9037; 83721

== ENCOUNTER 2023-01-09 08:00 | Outpatient (CLI) | payer MEDICARE, MEDICAID ==
[2023-01-09 20:25] LABS: BACTERIAL VAGINOSIS DNA NEGATIVE (NEGATIVE); CANDIDA GLABRATA DNA NEGATIVE (NEGATIVE); CANDIDA GROUP DNA NEGATIVE (NEGATIVE); CANDIDA KRUSEI DNA NEGATIVE (NEGATIVE); TRICHOMONAS VAGINALIS DNA NEGATIVE (NEGATIVE)
== END 2023-01-09 23:59 | disposition home or self-care (01) ==
LOC: LAB.WCP 08:00
PROVIDERS: ATTEND Physician Assistant
DX: N89.8 Other specified noninflammatory disorders of vagina (principal)
CPT/HCPCS: 81514

== ENCOUNTER 2023-02-05 13:36 | Outpatient (CLI) | payer MEDICARE, MEDICAID ==
--- NOTE | 2023-02-05 19:52 | XRAY Report ---
PROCEDURE: Lumbar Spine 2 View INDICATIONS: WORSENED SPINE PAIN TECHNIQUE: 2 views of the lumbar spine were acquired. COMPARISON: 12/15/2022 CT abdomen pelvis FINDINGS: Bones: 5 [id number] vertebrae are present. There is normal bony alignment. No vertebral body compression fractures. No suspicious bony lesions. L3-4, L4-5 and L5-S1 instrumented interbody fusion. There is failure of the posterior cris between the L4 and L5 vertebral bodies, new from the prior exam. Soft tissues: Overlying bowel gas pattern is normal. No suspicious soft tissue calcifications. 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 Reviewed by: Walter Watson MD on 02/05/2023 6:50 PM NICK[facility] Approved by: Walter Watson MD on 02/05/2023 6:50 PM [facility] Station ID: [id number]
--- NOTE | 2023-02-05 19:53 | XRAY Report ---
PROCEDURE: Thoracic Spine 2 View INDICATIONS: WORSENED SPINE PAIN TECHNIQUE: 2 views of the thoracic spine were acquired. COMPARISON: None. FINDINGS: Bones: No fractures or dislocations. No suspicious bony lesions. 12 pairs of ribs are noted, and a ppear intact where visualized. Soft tissues: No paravertebral stripe thickening. Left-sided Port-A-Cath in place IMPRESSION: Left-sided Port-A-Cath in place. No fracture or malalignment. Reviewed by: Walter Watson MD on 02/05/2023 6:52 PM [facility] Approved by: Walter Watson MD on 02/05/2023 6:52 PM [facility] Station ID: [id number]
== END 2023-02-05 13:37 | disposition home or self-care (01) ==
LOC: DI 13:36
PROVIDERS: ATTEND Physician Assistant
DX: T85.698A Other mechanical complication of other specified internal prosthetic devices, implants and grafts, initial encounter (principal); Y83.8 Other surgical procedures as the cause of abnormal reaction of the patient, or of later complication, without mention of misadventure at the time of the procedure; C79.51 Secondary malignant neoplasm of bone; C80.1 Malignant (primary) neoplasm, unspecified; M54.6 Pain in thoracic spine; Z98.1 Arthrodesis status

== ENCOUNTER 2023-06-09 08:02 | Emergency (ER) | payer MEDICARE, MEDICAID ==
--- NOTE | 2023-06-09 08:54 | ED Physician Documentation ---
PD HPI BACK PAIN - Stated complaint Stated Complaint: FLANK/BACK PX - Chief complaint Chief Complaint: Back Pain - History obtained from History obtained from: Patient, Family () - History of Present Illness Timing - onset: How many days ago (5) Timing - duration: Days (5) Timing - details: Gradual onset, Still present Location: Mid, Left Quality: Pain, Sharp Associated symptoms: No: Fever, Weakness, Numbness, Incontinent of urine, Unable to urinate, Hematuria, Incontinent of stool Improves with: Rest Worsened by: Movement, Palpation Similar symptoms before: Diagnosis (pyelo) Recently seen: Emergency Dept (at [facility] 5 days ago with dx of pyelo had CT ab/pel without findings.), Other (radiation to brain mets and immunotherapy for lung ca with mets to bone.) - Additional information Additional information: Mattie Bentley is a 47-year-old female who is undergoing treatment for lung cancer with metastases to the bone and brain. She has stable disease below her neck and she has had a recent diagnosis of multiple metastases to the brain and she is undergoing whole brain radiation therapy at [facility]. She was seen in the [facility] emergency department with flank pain 3 days ago. She had CT scan of the abdomen and pelvis done in her evaluation and the finding was urinary tract infection she has been diagnosed with pyelonephritis and she is here today with persistence of pain and worries about something new. Her pain has spread from the right side to the left side. PD PAST MEDICAL HISTORY - Past Medical History Past Medical History: Yes Cardiovascular: High cholesterol, Angina, Murmur Respiratory: COPD, Other Neuro: Headaches, Peripheral neuropathy Endocrine/Autoimmune: Type 2 diabetes GI: Ulcerative colitis RN ORTHOPAEDIC: None : Incontinence HEENT: Chronic vision loss Psych: Depression, Bipolar disorder, Panic attacks Musculoskeletal: Chronic back pain, Other Derm: None Other Past Medical History: CMT - Past Surgical History Past Surgical History: Yes General: Colonoscopy, Other Ortho: Spine surgery, Other /RN ORTHOPAEDIC: Hysterectomy, Other - Present Medications Home Medications: Ambulatory Orders Medication Instructions Recorded Confirmed ARIPiprazole [Abilify] 15 mg PO DAILY 05/13/13 06/09/23 Pregabalin [Lyrica] 150 mg PO BID 08/28/13 06/09/23 Fluoxetine HCl [Prozac] 80 mg PO QPM 12/11/20 06/09/23 Atorvastatin [Lipitor] 20 mg PO QPM 03/14/22 06/09/23 Hydrocodone/Acetaminophen 1 each PO Q6HR PRN 12/13/22 06/09/23 [Hydrocodone-Acetamin 10-325 mg] LORazepam [Ativan] 0.5 mg PO Q6H PRN 12/13/22 06/09/23 Propranolol [Inderal] 10 mg PO BID 12/13/22 06/09/23 Senna [Senokot] 17.2 mg PO DAILY PRN 12/13/22 06/09/23 Cannabis Gummies 1 each PO Q6H PRN 12/19/22 06/09/23 metFORMIN [Glucophage] 1,000 mg PO BID 12/19/22 06/09/23 Furosemide [Lasix] 20 mg PO DAILY PRN 12/29/22 06/09/23 Cefdinir 300 mg PO BID 06/09/23 06/09/23 Mirtazapine 7.5 mg PO HS 06/09/23 06/09/23 Morphine Sulfate ER [Ms Contin] 30 mg PO BID 06/09/23 06/09/23 - Allergies Allergies/Adverse Reactions: Allergies Allergy/AdvReac Type Severity Reaction Status Date / Time oxycodone Allergy Unknown Verified 06/09/23 08:14 oxycodone HCl * Allergy Unknown Verified 06/09/23 08:14 [From Percocet] ziprasidone [From Geodon] Allergy Hallucinati Verified 06/09/23 08:14 ons codeine [Codeine] AdvReac Severe Rash Verified 06/09/23 08:14 - Social History Does the pt smoke?: No Smoking Status: Former smoker Does the pt drink ETOH?: No Does the pt have substance abuse?: Yes Substance Use and Type: Marijuana - Immunizations Immunizations are current?: Yes - POLST Patient has POLST: No PD ED PE NORMAL - Vitals Vital signs reviewed: Yes - General General: Alert and oriented X 3, No acute distress, Well developed/nourished - HEENT HEENT: Atraumatic, PERRL, EOMI - Neck Neck: Supple, no meningeal sign, No bony TTP - Cardiac Cardiac: RRR, No murmur - Respiratory Respiratory: No respiratory distress, Clear bilaterally - Abdomen Abdomen: Normal bowel sounds, Soft, Non tender, Non distended, No organomegaly - Back Back: No spinal TTP, Other (mild CVA tenderness to deep palpation bimanual no midline tenderness. ) - Derm Derm: Normal color, Warm and dry, No rash - Extremities Extremities: No deformity, No edema Results - Vitals Vitals: Vital Signs - 24 hr 06/09/23 06/09/23 08:14 09:05 Temperature 36 C L 36.6 C Heart Rate 92 86 Respiratory 18 18 Rate Blood Pressure 146/86 H 128/77 O2 Saturation 95 100 Oxygen O2 Source Room air - Labs Labs: Laboratory Tests 06/09/23 06/09/23 06/09/23 09:00 09:00 09:00 WBC 7.8 RBC 3.54 L Hgb 10.0 L Hct 32.4 L MCV 91.5 MCH 28.2 MCHC 30.9 L RDW 16.5 H Plt Count 157 MPV 10.3 Neut # (Auto) 5.6 Lymph # (Auto) 1.1 L [place] # (Auto) 0.4 Eos # (Auto) 0.4 Baso # (Auto) 0.1 Absolute Nucleated RBC 0.00 Nucleated RBC % 0.0 Sodium 137 Potassium 4.5 Chloride 101 Carbon Dioxide 30 Anion Gap 6.0 BUN 18 Creatinine 0.8 Estimated GFR (MDRD) 77 L Glucose 202 H Calcium 9.7 Total Bilirubin 0.2 AST 13 ALT 16 Alkaline Phosphatase 83 Total Protein 7.3 Albumin 3.8 Globulin 3.5 Albumin/Globulin Ratio 1.1 Lipase 666 H Urine Color YELLOW Urine Clarity CLEAR Urine pH 7.0 Ur Specific [place] 1.010 Urine Protein 30 H Urine Glucose (UA) 100 H Urine Ketones NEGATIVE Urine Occult Blood NEGATIVE Urine Nitrite NEGATIVE Urine Bilirubin NEGATIVE Urine Urobilinogen 0.2 (NORMAL) Ur Leukocyte Esterase NEGATIVE Urine RBC None Seen Urine WBC 0-3 Ur Epithelial Cells RARE Transitional Ur Squamous Epith Cells FEW Squamous Urine Bacteria Few Ur Microscopic Review INDICATED Urine Culture Comments NOT INDICATED PD Medical Decision Making - ED course Complexity details: reviewed results, re-evaluated patient, considered differential, d/w patient, d/w family ED course: 47-year-old female undergoing treatment for lung cancer with mets to the brain and bone has had successful treatment of her disease with the exception of the new onset of mets to the brain. She has recently undergone radiation to the brain. Today she is here in the emergency department with flank pain bilaterally in the setting of recent UTI. She has been diagnosed and treated for a kidney infection 3 days ago. Our findings today are a normal urinalysis and elevation of the lipase. She has recently started mirtazipine for sleep and this is known to cause pancreatitis. She is not tender and has no lft elevations. We will have her discontinue the mirtazipine and follow up with oncology. Departure - Departure Disposition: Home, Self Care Clinical Impression: Pancreatitis Qualifiers: Chronicity: acute Pancreatitis type: drug induced Acute pancreatitis complication: no infection or necrosis Qualified Code(s): K85.30 - Drug induced acute pancreatitis without necrosis or infection Condition: Stable Instructions: ED Pancreatitis Follow-Up: Meena Tejada PA-C [Primary Care Provider] - Comments: Mattie, today it looks like you have pancreatitis or an inflammation of the pancreas and this is likely due to your recent use of mirtazapine. I will recommendation is to discontinue the use of this medication and reduce the amount of food that you are eating. It is important to continue to hydrate. The expectation is that after stopping the medication you should experience an improvement day by day. (beginning tomorrow instead of today)
[2023-06-09 09:10] VITALS: O2SAT 100
[2023-06-09 09:15] LABS: BILIRUBIN,URINE NEGATIVE (NEGATIVE); GLUCOSE, URINE (UA) 100 mg/dL (NEGATIVE); KETONES,URINE (UA) NEGATIVE (NEGATIVE); LEUKOCYTE ESTERASE, URINE NEGATIVE (NEGATIVE); NITRITE,URINE NEGATIVE (NEGATIVE); OCCULT BLOOD,URINE NEGATIVE (NEGATIVE); PROTEIN,URINE 30 mg/dL (NEGATIVE); UROBILINOGEN,URINE 0.2 (NORMAL) E.U./dL (NORMAL)
[2023-06-09 09:16] LABS: BASOPHILS # (AUTO) 0.1 10^3/uL (0.0-0.1); BASOPHILS % (AUTO) 0.6 %; CLARITY,URINE CLEAR (CLEAR); EOSINOPHILS # (AUTO) 0.4 10^3/uL (0.0-0.7); EOSINOPHILS % (AUTO) 5.4 %; HCT - HEMATOCRIT 32.4 % (37.0-47.0); LYMPHOCYTES # (AUTO) 1.1 10^3/uL (1.5-3.5); LYMPHOCYTES % (AUTO) 14.1 %; MEAN CORPUSCULAR HEMOGLOBIN 28.2 pg (27.0-31.0); MEAN CORPUSCULAR HGB CONC 30.9 g/dL (32.0-36.0); MEAN CORPUSCULAR VOLUME 91.5 fL (81.0-99.0); MEAN PLATELET VOLUME 10.3 fL (7.9-10.8); MONOCYTES # (AUTO) 0.4 10^3/uL (0.0-1.0); MONOCYTES % (AUTO) 5.7 %; NEUTROPHILS # (AUTO) 5.6 10^3/uL (1.5-6.6); NEUTROPHILS % (AUTO) 72.1 %; PLT - PLATELET COUNT 157 10^3/uL (130-450); RED BLOOD COUNT 3.54 10^6/uL (4.20-5.40); RED CELL DISTRIBUTION WIDTH 16.5 % (12.0-15.0); WHITE BLOOD COUNT 7.8 x10^3/uL (4.8-10.8)
[2023-06-09 09:22] LABS: BACTERIA,URINE Few /HPF (None Seen); EPITHELIAL CELLS,UR RARE Transitional /HPF (<= Few); RBC,URINE None Seen /HPF (0-5); SQUAMOUS EPITHELIAL CELL,UR FEW Squamous (<= Few); WBC,URINE 0-3 /HPF (0-5)
[2023-06-09 09:34] LABS: ALBUMIN 3.8 g/dL (3.2-5.5); ALBUMIN/GLOBULIN RATIO 1.1 (1.0-2.2); BILIRUBIN,TOTAL 0.2 mg/dL (0.2-1.0); CALCIUM 9.7 mg/dL (8.5-10.3); CREATININE 0.8 mg/dL (0.6-1.3); POTASSIUM 4.5 mmol/L (3.5-4.5); TOTAL PROTEIN 7.3 g/dL (6.4-8.9)
[2023-06-09 10:21] VITALS: BP 127/79
== END 2023-06-09 10:25 | disposition home or self-care (01) ==
LOC: ED 08:02
DX: K85.30 Drug induced acute pancreatitis without necrosis or infection (principal); T43.025A Adverse effect of tetracyclic antidepressants, initial encounter; Z87.891 Personal history of nicotine dependence
CPT/HCPCS: 36415; 80053; 81001; 81003; 83690; 85025; 87086; 99283

== ENCOUNTER 2023-06-16 07:14 | Emergency (ER) | payer MEDICARE, MEDICAID ==
--- NOTE | 2023-06-16 07:35 | ED Physician Documentation ---
PD HPI BACK PAIN - Stated complaint Stated Complaint: BACK/SIDE PX - Chief complaint Chief Complaint: Abd Pain - History obtained from History obtained from: Patient - History of Present Illness Timing - onset: How many weeks ago (2) Timing - duration: Weeks (2) Timing - details: Gradual onset, Still present Location: Mid Quality: Pain, Aching Associated symptoms: No: Fever, Weakness, Numbness Worsened by: Movement, Twisting. No: Palpation Contributing factors: No: Lifting, Trauma Recently seen: Clinic ([facility]) Review of Systems Constitutional: denies: Fever, Chills Musculoskeletal: reports: Back pain Neurologic: denies: Focal weakness, Numbness PD PAST MEDICAL HISTORY - Past Medical History Cardiovascular: High cholesterol, Angina, Murmur Respiratory: COPD, Other Neuro: Headaches, Peripheral neuropathy Endocrine/Autoimmune: Type 2 diabetes GI: Ulcerative colitis VICE PROVOST: None : Incontinence HEENT: Chronic vision loss Psych: Depression, Bipolar disorder, Panic attacks Musculoskeletal: Chronic back pain, Other Derm: None - Past Surgical History Past Surgical History: Yes General: Colonoscopy, Other Ortho: Spine surgery, Other /VICE PROVOST: Hysterectomy, Other - Present Medications Home Medications: Ambulatory Orders Medication Instructions Recorded Confirmed ARIPiprazole [Abilify] 15 mg PO DAILY 05/13/13 06/09/23 Pregabalin [Lyrica] 150 mg PO BID 08/28/13 06/09/23 Fluoxetine HCl [Prozac] 80 mg PO QPM 12/11/20 06/09/23 Atorvastatin [Lipitor] 20 mg PO QPM 03/14/22 06/09/23 Hydrocodone/Acetaminophen 1 each PO Q6HR PRN 12/13/22 06/09/23 [Hydrocodone-Acetamin 10-325 mg] LORazepam [Ativan] 0.5 mg PO Q6H PRN 12/13/22 06/09/23 Propranolol [Inderal] 10 mg PO BID 12/13/22 06/09/23 Senna [Senokot] 17.2 mg PO DAILY PRN 12/13/22 06/09/23 Cannabis Gummies 1 each PO Q6H PRN 12/19/22 06/09/23 metFORMIN [Glucophage] 1,000 mg PO BID 12/19/22 06/09/23 Furosemide [Lasix] 20 mg PO DAILY PRN 12/29/22 06/09/23 Cefdinir 300 mg PO BID 06/09/23 06/09/23 Mirtazapine 7.5 mg PO HS 06/09/23 06/09/23 Morphine Sulfate ER [Ms Contin] 30 mg PO BID 06/09/23 06/09/23 Meloxicam [Mobic] 7.5 mg PO BID 10 Days #20 tablet 06/16/23 - Allergies Allergies/Adverse Reactions: Allergies Allergy/AdvReac Type Severity Reaction Status Date / Time oxycodone Allergy Unknown Verified 06/09/23 08:14 oxycodone HCl * Allergy Unknown Verified 06/09/23 08:14 [From Percocet] ziprasidone [From Geodon] Allergy Hallucinati Verified 06/09/23 08:14 ons codeine [Codeine] AdvReac Severe Rash Verified 06/09/23 08:14 - Social History Does the pt smoke?: No Smoking Status: Never smoker Does the pt drink ETOH?: No Does the pt have substance abuse?: Yes - Immunizations Immunizations are current?: Yes - POLST Patient has POLST: No PD ED PE NORMAL - Vitals Vital signs reviewed: Yes - General General: Alert and oriented X 3, Well developed/nourished - Cardiac Cardiac: RRR, No murmur - Respiratory Respiratory: No respiratory distress, Clear bilaterally - Abdomen Abdomen: Soft, Non tender - Neuro Neuro: No motor deficit, No sensory deficit Results - Vitals Vitals: Vital Signs - 24 hr 06/16/23 06/16/23 13:02 14:39 Temperature 36.1 C L Heart Rate 96 93 Respiratory 18 18 Rate Blood Pressure 124/76 116/70 O2 Saturation 94 92 Oxygen O2 Source Room air - Labs Labs: Laboratory Tests 06/16/23 06/16/23 06/16/23 08:42 08:42 09:06 WBC 7.7 RBC 3.71 L Hgb 10.3 L Hct 34.2 L MCV 92.2 MCH 27.8 MCHC 30.1 L RDW 15.9 H Plt Count 160 MPV 10.4 Neut # (Auto) 5.5 Lymph # (Auto) 1.1 L [place] # (Auto) 0.4 Eos # (Auto) 0.5 Baso # (Auto) 0.1 Absolute Nucleated RBC 0.00 Nucleated RBC % 0.0 Sodium 135 Potassium 4.0 Chloride 93 L Carbon Dioxide 34 H Anion Gap 8.0 BUN 22 H Creatinine 0.9 Estimated GFR (MDRD) 67 L Glucose 161 H Calcium 10.2 Magnesium 1.4 L Total Bilirubin 0.3 AST 14 ALT 14 Alkaline Phosphatase 90 Total Creatine Kinase 35 Total Protein 7.9 Albumin 4.0 Globulin 3.9 Albumin/Globulin Ratio 1.0 Lipase 310 H Urine Color YELLOW Urine Clarity CLEAR Urine pH 6.0 Ur Specific [place] 1.020 Urine Protein TRACE Urine Glucose (UA) NEGATIVE Urine Ketones NEGATIVE Urine Occult Blood TRACE-INTA Urine Nitrite NEGATIVE Urine Bilirubin NEGATIVE Urine Urobilinogen 0.2 (NORMAL) Ur Leukocyte Esterase NEGATIVE Ur Microscopic Review NOT INDICATED Urine Culture Comments NOT INDICATED - Rads (name of study) thoracic and lumbar CT Relevant Findings:: Prelim report reviewed (new sclerotic lesions in thoracic and lumbar spine, worst at T8, which is where the worst pain is. No fractures. No cord impingement. ), EMP independent interpretation of test PD Medical Decision Making - ED course Complexity details: reviewed results (Care service, so has medical support for process. ), re-evaluated patient (has increased pain in spine from new mets on CT. Can increase baseline Morphine and Oxycodone for now, and talk with Palliative Care on Sunday about it. Could add NSAID short term as likely some inflammation from new lesions. ), considered differential (has lung cancer with recently discovered mets to brain. Had torso CT April with no bone mets in spine but some to ribs/sternum. Has back pain now for couple of weeks. No abrupt injury. ), d/w patient Departure - Departure Disposition: Home, Self Care Clinical Impression: Back pain, acute, Metastatic cancer to bone Condition: Stable Record reviewed to determine appropriate education?: Yes Follow-Up: Meena Tejada PA-C [Primary Care Provider] - Michelle Lerner ARNP [Provider Admit Priv/Credential] - Prescriptions: Meloxicam [Mobic] 7.5 mg PO BID 10 Days #20 tablet Comments: Your CT of the thoracic and lumbar spine do show several spots that look like metastatic lesions now. This is most pronounced at the 8 thoracic which is where most of your pain is. There are no signs of fractures. With acute lesions, there is often inflammatory component so adding some anti-inflammatory may be helpful. You are having increased pain so I would recommend increasing your morphine to 4 times daily instead of 3 and continue with your breakthrough pain medicine as needed. Meloxicam anti-inflammatory twice daily. This is a little easier to do as only twice a day. Short-term you can use ibuprofen or naproxen as well. Contact Michelle Lerner on Sunday to discuss pain management. Contact your oncolo gist as well. Ask Michelle Lerner about potential use of calcitonin nasal spray in the setting of bone lesions like this. We use it in compression fractures but I am not sure of the utility for these. Forms: PCP List Discharge Date/Time: 06/16/23 14:40
[2023-06-16] MEDS ORDERED: KETOROLAC 15 MG/ML VIAL IVP STA (08:23)
[2023-06-16] MEDS ORDERED: HYDROmorphone 1 MG/ML CARPUJECT IVP STA (08:23)
[2023-06-16 08:51] LABS: BASOPHILS # (AUTO) 0.1 10^3/uL (0.0-0.1); BASOPHILS % (AUTO) 0.7 %; EOSINOPHILS # (AUTO) 0.5 10^3/uL (0.0-0.7); EOSINOPHILS % (AUTO) 6.5 %; HCT - HEMATOCRIT 34.2 % (37.0-47.0); HGB - HEMOGLOBIN 10.3 g/dL (12.0-16.0); LYMPHOCYTES # (AUTO) 1.1 10^3/uL (1.5-3.5); LYMPHOCYTES % (AUTO) 14.5 %; MEAN CORPUSCULAR HEMOGLOBIN 27.8 pg (27.0-31.0); MEAN CORPUSCULAR HGB CONC 30.1 g/dL (32.0-36.0); MEAN CORPUSCULAR VOLUME 92.2 fL (81.0-99.0); MEAN PLATELET VOLUME 10.4 fL (7.9-10.8); MONOCYTES # (AUTO) 0.4 10^3/uL (0.0-1.0); NEUTROPHILS # (AUTO) 5.5 10^3/uL (1.5-6.6); NEUTROPHILS % (AUTO) 71.6 %; PLT - PLATELET COUNT 160 10^3/uL (130-450); RED BLOOD COUNT 3.71 10^6/uL (4.20-5.40); RED CELL DISTRIBUTION WIDTH 15.9 % (12.0-15.0); WHITE BLOOD COUNT 7.7 x10^3/uL (4.8-10.8)
[2023-06-16 09:19] LABS: BILIRUBIN,TOTAL 0.3 mg/dL (0.2-1.0); CALCIUM 10.2 mg/dL (8.5-10.3); CREATININE 0.9 mg/dL (0.6-1.3); MAGNESIUM 1.4 mg/dL (1.7-2.3); TOTAL PROTEIN 7.9 g/dL (6.4-8.9)
[2023-06-16 09:31] LABS: BILIRUBIN,URINE NEGATIVE (NEGATIVE); GLUCOSE, URINE (UA) NEGATIVE (NEGATIVE); KETONES,URINE (UA) NEGATIVE (NEGATIVE); LEUKOCYTE ESTERASE, URINE NEGATIVE (NEGATIVE); NITRITE,URINE NEGATIVE (NEGATIVE); OCCULT BLOOD,URINE TRACE-INTA (NEGATIVE); PROTEIN,URINE TRACE mg/dL (NEGATIVE); UROBILINOGEN,URINE 0.2 (NORMAL) E.U./dL (NORMAL)
[2023-06-16 09:33] LABS: CLARITY,URINE CLEAR (CLEAR)
--- NOTE | 2023-06-16 11:01 | CT Report ---
PROCEDURE: Thoracic Spine W INDICATIONS: thoracolumbar backpain weeks, h/o lung CA CONTRAST: Omni 300 100ml TECHNIQUE: After the administration of intravenous Isovue contrast, 3 mm thick sections acquired through the lev els of interest. Sagittal and coronal reformats were then constructed. For radiation dose reduction, the following was used: automated exposure control, adjustment of mA and/or kV according to patient size. COMPARISON: Correlation is made with prior chest CT, 05/21/2023. Correlation is also made with the a ccompanying lumbar CT. FINDINGS: Image quality: Excellent. Bones: Patchy areas of bony sclerosis can be seen, which are overall worst within the T8 level. Nega tive for acute fracture. Mild, age-appropriate degenerative changes are seen. Soft tissues: There is extensive poorly defined opacity seen within the right lung, primarily within the perihilar right lung. Air bronchograms are seen. There is partial visualization of a left-sided chest port. There is a right central adrenal nodule seen measuring 1.6 cm. IMPRESSION: Patchy perihilar right lung opacity is seen, which is worse than on the prior examination and is attr ibuted to increasing infection. Patchy areas of bony sclerosis are seen, which are worst at the T8 level and are consistent with meta static disease in this patient with a known history of primary cancer. No acute bony abnormality is seen. There is a 1.6 cm left renal nodule seen. Reviewed by: Gomez Alvarez MD on 06/16/2023 10:00 AM [facility] Approved by: Gomez Alvarez MD on 06/16/2023 10:00 AM [facility] Station ID: [id number]
--- NOTE | 2023-06-16 11:07 | CT Report ---
PROCEDURE: Lumbar Spine W INDICATIONS: thoracolumbar pain a few weeks. h/o lung CA/mets. CONTRAST: Omni 300 100ml TECHNIQUE: After the administration of intravenous Isovue contrast, 3 mm thick sections acquired from the T12 le rock to the sacrum. Sagittal and coronal reformats were constructed. For radiation dose reduction, [facility] following was used: automated exposure control, adjustment of mA and/or kV according to patient s ize. COMPARISON: Correlation is made with abdomen pelvis CT, 05/21/2023. Correlation is also made with e coming thoracic spine CT. Correlation is also made with prior lumbar plain films, 02/27/2017. Correl ation is also made with prior chest CT dated 08/31/2019. FINDINGS: Image quality: There is artifact associated with the metallic hardware. Bones: No acute vertebral body compression fractures. Minimal patchy areas of faint sclerosis can be seen within the bones of the lumbar spine. Central spinal caliber is of normal overall caliber. No pars defects. Postoperative changes are seen, with bilateral pedicle screws L3-S1. The screws appear relatively wel l placed. Vertical fixation rods are seen. Disc spacers are seen at L3-L4, L4-L5, and at L5-S1. No fi ndings of hardware failure or hardware loosening can be seen. There has been removal of portions of [facility] posterior elements. Minimal retrolisthesis can be seen at the L2-L3 level. T12-L1: Normal in appearance. L1-L2: Normal in appearance. L2-L3: The disc height is well-preserved. Mild to moderate disc bulge is seen. Moderate facet hyp ertrophy is seen. There is mild right-sided and moderate left-sided neuroforaminal narrowing. Modera te central canal narrowing is seen. L3-L4: Postoperative changes are seen. No significant neuroforaminal narrowing can be seen. No cent ral canal narrowing is seen. L4-L5: Mild disc bulge is seen. There is at least moderate left-sided facet hypertrophy. Moderat e bilateral neural foraminal narrowing is seen. No central canal narrowing is seen. L5-S1: Mild disc bulge is seen. Moderate facet hypertrophy is seen. There is moderate right-side d and no left-sided neuroforaminal narrowing. No central canal narrowing can be seen. Soft tissues: There is a 1.6 cm right adrenal nodule. No retroperitoneal hematomas. Visualized aort a is normal in caliber. IMPRESSION: No acute abnormality is seen. Minimal patchy areas of bony sclerosis can be seen within the lumbar spine. A mild amount of metastat ic disease is suspected. Multiple levels of lumbar spine degenerative change can be seen. L3-S1 postoperative hardware can be seen. There is a 1.6 cm right adrenal nodule. This appears new compared to 2020. Please consider metastatic disease. Reviewed by: Gomez Alvarez MD on 06/16/2023 10:06 AM [facility]UST Approved by: Gomez Alvarez MD on 06/16/2023 10:06 AM [facility]UST Station ID: [id number]
[2023-06-16] MEDS ORDERED: iohexoL-300 100 ML VIAL IVP ONE (11:23)
[2023-06-16] MEDS ORDERED: HYDROmorphone 2 MG/ML VIAL IVP STA (12:09)
[2023-06-16 14:48] VITALS: BP 116/70; O2SAT 92
== END 2023-06-16 14:40 | disposition home or self-care (01) ==
LOC: ED 07:14
DX: M54.9 Dorsalgia, unspecified (principal); C34.90 Malignant neoplasm of unspecified part of unspecified bronchus or lung; C79.31 Secondary malignant neoplasm of brain; E11.9 Type 2 diabetes mellitus without complications; Z79.84 Long term (current) use of oral hypoglycemic drugs
CPT/HCPCS: 36415; 72129; 72132; 80053; 81003; 82550; 83690; 83735; 85025; 96374; 96375; 96376; 99284; 99285; J1170; Q9967; 81001; 87086

== ENCOUNTER 2023-06-18 08:00 | Outpatient (CLI) | payer MEDICARE, MEDICAID ==
[2023-06-18 21:06] LABS: ESTIMATED AVERAGE GLUCOSE 166 mg/dL (70-100); HEMOGLOBIN A1c% 7.4 % (4.27-6.07)
== END 2023-06-18 23:59 | disposition home or self-care (01) ==
LOC: LAB 08:00
PROVIDERS: ATTEND Physician Assistant
DX: K85.30 Drug induced acute pancreatitis without necrosis or infection (principal); E11.9 Type 2 diabetes mellitus without complications
CPT/HCPCS: 36415; 83036; 83690

== ENCOUNTER 2023-07-08 11:23 | Emergency (ER) | payer MEDICARE, MEDICAID ==
[2023-07-08] MEDS ORDERED: SODIUM CHLORIDE 0.9% 1,000 ML IV STA (11:59)
[2023-07-08] MEDS ORDERED: DEXAMETHASONE 10 MG/ML VIAL IV STA (12:38)
[2023-07-08] MEDS ORDERED: HYDROmorphone 1 MG/ML CARPUJECT IVP STA ×2 (12:38→14:25)
[2023-07-08 12:45] LABS: BASOPHILS # (AUTO) 0.1 10^3/uL (0.0-0.1); BASOPHILS % (AUTO) 0.7 %; EOSINOPHILS # (AUTO) 0.2 10^3/uL (0.0-0.7); EOSINOPHILS % (AUTO) 2.7 %; HCT - HEMATOCRIT 36.8 % (37.0-47.0); HGB - HEMOGLOBIN 11.4 g/dL (12.0-16.0); LYMPHOCYTES # (AUTO) 0.8 10^3/uL (1.5-3.5); LYMPHOCYTES % (AUTO) 11.3 %; MEAN CORPUSCULAR HEMOGLOBIN 28.3 pg (27.0-31.0); MEAN CORPUSCULAR VOLUME 91.3 fL (81.0-99.0); MEAN PLATELET VOLUME 9.7 fL (7.9-10.8); MONOCYTES # (AUTO) 0.3 10^3/uL (0.0-1.0); MONOCYTES % (AUTO) 3.9 %; NEUTROPHILS # (AUTO) 5.9 10^3/uL (1.5-6.6); NEUTROPHILS % (AUTO) 79.8 %; PLT - PLATELET COUNT 138 10^3/uL (130-450); RED BLOOD COUNT 4.03 10^6/uL (4.20-5.40); RED CELL DISTRIBUTION WIDTH 16.1 % (12.0-15.0); WHITE BLOOD COUNT 7.4 x10^3/uL (4.8-10.8)
[2023-07-08 13:01] LABS: BILIRUBIN,TOTAL 0.3 mg/dL (0.2-1.0); CALCIUM 10.2 mg/dL (8.5-10.3); CREATININE 0.9 mg/dL (0.6-1.3); TOTAL PROTEIN 7.9 g/dL (6.4-8.9)
[2023-07-08 14:09] VITALS: BP 156/88; O2SAT 92
--- NOTE | 2023-07-08 14:26 | ED Physician Documentation ---
History of Present Illness - Stated complaint Stated Complaint: LT RIB PX - Chief complaint Chief Complaint: General - History obtained from History obtained from: Patient, Family - Additonal information Additional information: The pt comes to the ED with CC of L side pain over her inferolateral ribs, increasing over the past several weeks. 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 Mets to brain were diagnosed less than 2 months ago, and since onset of this pain, pt has been evaluated with x-rays, CT chest/abd/pelvis, and PET scan. The cause of the pain is as yet unknown. No other new sx. No fever, or new/worsening nausea. No new/worsening cough or SOB. Pt is on rapid-acting and long-acting morphine at home, and states she has not gotten much relief with this. She is followed by Michelle Lerner in [facility]. PD PAST MEDICAL HISTORY - Past Medical History Past Medical History: Yes Cardiovascular: High cholesterol, Angina, Murmur Respiratory: COPD, Other Neuro: Headaches, Peripheral neuropathy Endocrine/Autoimmune: Type 2 diabetes GI: Ulcerative colitis [employer]: None : Incontinence HEENT: Chronic vision loss Psych: Depression, Bipolar disorder, Panic attacks Musculoskeletal: Chronic back pain, Other Derm: None - Past Surgical History Past Surgical History: Yes General: Colonoscopy, Other Ortho: Spine surgery, Other /[employer]: Hysterectomy, Other - Present Medications Home Medications: Ambulatory Orders Medication Instructions Recorded Confirmed ARIPiprazole [Abilify] 15 mg PO DAILY 05/13/13 07/09/23 Pregabalin [Lyrica] 150 mg PO BID 08/28/13 07/09/23 Fluoxetine HCl [Prozac] 80 mg PO QPM 12/11/20 07/09/23 Atorvastatin [Lipitor] 20 mg PO QPM 03/14/22 07/09/23 Hydrocodone/Acetaminophen 1 each PO Q6HR PRN 12/13/22 07/09/23 [Hydrocodone-Acetamin 10-325 mg] LORazepam [Ativan] 0.5 mg PO Q6H PRN 12/13/22 07/09/23 Propranolol [Inderal] 10 mg PO BID 12/13/22 07/09/23 Senna [Senokot] 17.2 mg PO DAILY PRN 12/13/22 07/09/23 Cannabis Gummies 1 each PO Q6H PRN 12/19/22 07/09/23 metFORMIN [Glucophage] 1,000 mg PO BID 12/19/22 07/09/23 Furosemide [Lasix] 20 mg PO DAILY PRN 12/29/22 07/09/23 Cefdinir 300 mg PO BID 06/09/23 07/09/23 Mirtazapine 7.5 mg PO HS 06/09/23 07/09/23 Morphine Sulfate ER [Ms Contin] 30 mg PO BID 06/09/23 07/09/23 Meloxicam [Mobic] 7.5 mg PO BID 10 Days #20 tablet 06/16/23 07/09/23 - Allergies Allergies/Adverse Reactions: Allergies Allergy/AdvReac Type Severity Reaction Status Date / Time oxycodone Allergy Unknown Verified 07/11/23 11:39 oxycodone HCl * Allergy Unknown Verified 07/11/23 11:39 [From Percocet] ziprasidone [From Geodon] Allergy Hallucinati Verified 07/11/23 11:39 ons codeine [Codeine] AdvReac Severe Rash Verified 07/11/23 11:39 - Social History Does the pt smoke?: No Smoking Status: Never smoker Does the pt drink ETOH?: No Does the pt have substance abuse?: Yes - Immunizations Immunizations are current?: Yes - POLST Patient has POLST: No PD ED PE NORMAL - Vitals Vital signs reviewed: Yes - General General: Alert and oriented X 3, No acute distress, Well developed/nourished - HEENT HEENT: Atraumatic, PERRL, EOMI, Moist mucous membranes - Neck Neck: Supple, no meningeal sign - Cardiac Cardiac: RRR, No murmur - Respiratory Respiratory: No respiratory distress, Clear bilaterally - Abdomen Abdomen: Soft, Non tender, Non distended - Back Back: Other (Mild TTP without step-off around the T-8 level) - Derm Derm: Normal color, Warm and dry, No rash - Extremities Extremities: No deformity, No edema - Neuro Neuro: Alert and oriented X 3 - Psych Psych: Normal mood, Normal affect - Free text exam Free text exam: TTP without crepitus, step-off, or mass over the 7-9th rib distribution of the L anterolateral chest wall. Results - Vitals Vitals: Oxygen O2 Source Room air - Labs Labs: Laboratory Tests 07/08/23 07/08/23 12:34 12:34 WBC 7.4 RBC 4.03 L Hgb 11.4 L Hct 36.8 L MCV 91.3 MCH 28.3 MCHC 31.0 L RDW 16.1 H Plt Count 138 MPV 9.7 Neut # (Auto) 5.9 Lymph # (Auto) 0.8 L Jenkins # (Auto) 0.3 Eos # (Auto) 0.2 Baso # (Auto) 0.1 Absolute Nucleated RBC 0.00 Nucleated RBC % 0.0 Sodium 137 Potassium 4.0 Chloride 98 L Carbon Dioxide 28 Anion Gap 11.0 BUN 14 Creatinine 0.9 Estimated GFR (MDRD) 67 L Glucose 157 H Calcium 10.2 Total Bilirubin 0.3 AST 17 ALT 15 Alkaline Phosphatase 81 Total Protein 7.9 Albumin 4.0 Globulin 3.9 Albumin/Globulin Ratio 1.0 Lipase 199 H PD Medical Decision Making - ED course Complexity details: reviewed old records, reviewed results, re-evaluated patient, considered differential, d/w patient, d/w family ED course: I reviewed the pt's old records, and found that she had just had CTs of chest to pelvis 6 days ago. I suspected the T-8 lesion was the cause of the pt's pain, as it was about the same level as the pt's rib pain. No rib lesions or LUQ/lower lung lesions had been found. I treated the pt symptomatically for her pain, and she was found to be feeling better. I did not feel repeat imaging was indicated so soon. The pt has an appointment with her oncologist tomorrow. We have discussed calling her palliative provider tomorrow morning (today is Sunday) to come up with a more aggressive pain management plan for home. We have discussed the usual indications for return. Departure - Departure Disposition: Home, Self Care Clinical Impression: Chest wall pain Condition: Stable Instructions: ED Chest Pain Costochondritis Comments: It is not clear exactly what is causing your pain at this point in time. Please continue your plans to follow-up with oncology tomorrow. You may continue to take your home meds as needed. Forms: PCP List Discharge Date/Time: 07/08/23 14:46
== END 2023-07-08 14:46 | disposition home or self-care (01) ==
LOC: ED 11:23
DX: R07.89 Other chest pain (principal); E78.00 Pure hypercholesterolemia, unspecified; J44.9 Chronic obstructive pulmonary disease, unspecified; E11.42 Type 2 diabetes mellitus with diabetic polyneuropathy; Z79.899 Other long term (current) drug therapy; Z79.84 Long term (current) use of oral hypoglycemic drugs
CPT/HCPCS: 36415; 80053; 83690; 85025; 96374; 96376; 99283; J1170

== ENCOUNTER 2023-08-13 13:48 | Outpatient (CLI) | payer MEDICARE, MEDICAID | END 2023-08-13 23:59 | disposition EMS.NT | LOC: EMS 13:48 | DX: R53.1 Weakness (principal) ==

== ENCOUNTER 2023-09-09 17:57 | Outpatient (CLI) | payer MEDICARE, MEDICAID | END 2023-09-09 23:59 | disposition EMS.NT | LOC: EMS 17:57 | DX: Z03.89 Encounter for observation for other suspected diseases and conditions ruled out (principal) ==